=== PATIENT | male | born 1980 | race Caucasian/White ===

== ENCOUNTER 2017-04-08 15:17 | Inpatient (IN) | payer OTHER ==
[~2017-04-08] VITALS: Ht 188 cm; Wt 89.1 kg
[~2017-04-08 15:17] MED LIST: ANASTROZOLE1 MG PO; ARIMIDEX1 MG PO; BACTRIM DS TAB1 EACH PO; DOXEPIN HCL25 MG PO; HYDROXYZINE HCL25 MG PO; NAPROXEN250 MG PO; PREGNYL10000 UNIT SC; SMZ/TMP PO; TESTOSTERO200 MG/1 M IM
[2017-04-08] MEDS ORDERED: MORPHINE SULFATE 2 MG/ML SYR IV STA (15:51)
[2017-04-08] MEDS ORDERED: ONDANSETRON HCL INJ 2 MG/ML VIAL IV STA (15:51)
[2017-04-08] MEDS ORDERED: SODIUM CHLORIDE 0.9% 1000ML 1,000 ML IV SCH (16:00)
[2017-04-08 16:05] LABS: BASOPHILS % 0.1 % (0.0-1.0); HEMATOCRIT 39.8 % (38.2-49.6); HEMOGLOBIN 11.1 g/dL (14.0-18.0); LYMPHOCYTES # (AUTO) 0.4 (1.0-3.2); LYMPHOCYTES % 3.3 % (18.0-39.1); MEAN CORPUSCULAR HGB CONC 27.9 g/dL (31-35); MEAN CORPUSCULAR VOLUME 64.7 fL (81-99); MONOCYTES # (AUTO) 0.4 (0.2-0.8); NEUTROPHILS # (AUTO) 10.9 (2.1-6.9); NEUTROPHILS % 93.3 % (38.7-80.0); PLATELET COUNT 292 x10e3/uL (140-360); RED BLOOD COUNT 6.15 x10e6/uL (4.3-5.7); RED CELL DISTRIBUTION WIDTH 18.9 % (11.7-14.4)
[2017-04-08 16:08] LABS: BILIRUBIN,URINE NEGATIVE (NEGATIVE); COLOR,URINE YELLOW (YELLOW); KETONES,URINE 3+ (NEGATIVE); LEUKOCYTE ESTERASE ,URINE NEGATIVE (NEGATIVE); NITRITE,URINE NEGATIVE (NEGATIVE); URINE UROBILINOGEN 0.2 mg/dL (0.2 - 1)
[2017-04-08 16:09] LABS: PROTEIN,URINE DIPSTICK TRACE (NEGATIVE)
[2017-04-08 16:10] LABS: CLARITY,URINE CLEAR (CLEAR)
[2017-04-08 16:21] LABS: ALANINE AMINOTRANSFERASE 67 IU/L (0-55); ALBUMIN 4.1 g/dL (3.5-5.0); ALBUMIN/GLOBULIN RATIO 1.3 (0.8-2.0); ALKALINE PHOSPHATASE 44 IU/L (40-150); AMYLASE 49 U/L (25-125); ANION GAP 13.1 mmol/L (8-16); BLOOD UREA NITROGEN 21 mg/dL (7-26); BUN/CREATININE RATIO 21 (6-25); CALCIUM 8.6 mg/dL (8.4-10.2); CARBON DIOXIDE 24 mmol/L (22-29); CHLORIDE 104 mmol/L (98-107); CREATININE, SERUM 1.02 mg/dL (0.72-1.25); EST GLOMERULAR FILTRATION RATE > 60 ML/MIN (60-); GLUCOSE 130 mg/dL (74-118); LIPASE 11 U/L (8-78); POTASSIUM 4.1 mmol/L (3.5-5.1); SODIUM 137 mmol/L (136-145)
[2017-04-08 16:28] LABS: BACTERIA,URINE RARE /HPF; RBC,URINE 0-5 /HPF (0-5); WBC,URINE (MAN) 0-5 /HPF (0-5)
[2017-04-08 16:29] LABS: MUCUS,URINE FEW (RARE)
--- NOTE | 2017-04-08 17:28 | Diagnostic Imaging Report ---
PROCEDURE: CT ABDOMEN AND PELVIS WITHOUT CONTRAST TECHNIQUE: The abdomen and pelvis were scanned utilizing a multidetector helical scanner from the diaphragm to the lesser trochanter without IV or oral contrast material. Coronal and sagittal multiplanar reformations were obtained. Recent prior CT at outside facility with iodine contrast administration and Gastrografin performed today. DLP: 788.39 mGy-cm COMPARISON: Patients [facility], CT, CT ABDOMEN/PELVIS WO, 01/23/2012, 0:32. INDICATIONS: MID ABDOMINAL PAIN FINDINGS: ABSENCE OF INTRAVENOUS CONTRAST DECREASES SENSITIVITY FOR DETECTION OF FOCAL LESIONS AND VASCULAR PATHOLOGY. LOWER THORAX: Normal. HEPATOBILIARY: No focal hepatic lesions. No biliary ductal dilatation. SPLEEN: No splenomegaly. PANCREAS: No focal masses or ductal dilatation. ADRENALS: No adrenal nodules. KIDNEYS/URETERS: No hydronephrosis, stones, or solid mass lesions. The previously described punctate renal stones are obscured by the excretion of contrast material. PELVIC ORGANS/BLADDER: Contrast within the renal collecting systems and bladder. PERITONEUM / RETROPERITONEUM: No free air or fluid. LYMPH NODES: No lymphadenopathy. VESSELS: Unremarkable. GI TRACT: Residual contrast within loops of small bowel and stomach. Small bowel loops in the right midabdomen are mildly prominent which may be reflective of an ileus. Remainder small bowel loops showed no contrast or significant dilatation. Postoperative changes related to a ventral hernia. BONES AND SOFT TISSUES: Unremarkable. IMPRESSION: 1. Limited study to evaluate for renal stones due to residual renal excretion and bladder contrast material. 2. Prominent loops of small bowel with contrast present within may represent a focal ileus. Laurent Francois D.O. Dictated by: Laurent Francois D.O. on 04/08/2017 at 17:34 Electronically approved by: Laurent Francois D.O. on 04/08/2017 at 17:34
[2017-04-08] MEDS ORDERED: MORPHINE SULFATE 2 MG/ML SYR ONE (17:50)
[2017-04-08] MEDS ORDERED: HYDROMORPHONE 2MG/ML INJ IV ONE (18:15)
[2017-04-08] MEDS ORDERED: HYDROMORPHONE 1MG/1ML INJ IV PRN (19:15)
[2017-04-08 19:25] LABS: LYMPHOCYTES % (MANUAL) 1 % (19-48); NEUTROPHILS % (MANUAL) 99 % (40-74)
[2017-04-08] MEDS: D5.45%NS/KCL 20MEQ 1,000 ML IV SCH (19:28)
[2017-04-08 19:29] LABS: HYPOCHROMASIA MODERATE; PLATELET ESTIMATE ADEQUATE; PLATELET MORPHOLOGY COMMENT NORMAL; RBC MORPHOLOGY COMMENT ABNORMAL
[2017-04-08 19:30] LABS: ANISOCYTOSIS SLIGHT; OVALOCYTES FEW; POIKILOCYTOSIS MODERATE
[2017-04-08] MEDS: HYDROMORPHONE 2MG/ML INJ IV PRN (21:41)
[2017-04-08 22:40] VITALS: BP 132/75
[2017-04-09] VITALS (7 sets, daily range): BP systolic 92–141; BP diastolic 52–88
[2017-04-09] MEDS: HYDROMORPHONE 2MG/ML INJ IV PRN ×3 (01:53→09:52)
[2017-04-09] MEDS: ONDANSETRON HCL INJ 2 MG/ML VIAL IV PRN ×3 (01:53→17:50)
[2017-04-09] MEDS: SODIUM CHLORIDE 0.9% 1000ML 1,000 ML IV SCH ×2 (02:15→12:29)
[2017-04-09] MEDS: D5.45%NS/KCL 20MEQ 1,000 ML IV SCH (03:36)
[2017-04-09 06:29] LABS: BASOPHILS % 0.1 % (0.0-1.0); HEMATOCRIT 37.3 % (38.2-49.6); HEMOGLOBIN 10.4 g/dL (14.0-18.0); LYMPHOCYTES # (AUTO) 0.8 (1.0-3.2); LYMPHOCYTES % 5.5 % (18.0-39.1); MEAN CORPUSCULAR HEMOGLOBIN 17.9 pg (28-32); MEAN CORPUSCULAR HGB CONC 27.9 g/dL (31-35); MEAN CORPUSCULAR VOLUME 64.2 fL (81-99); MONOCYTES # (AUTO) 1.2 (0.2-0.8); MONOCYTES % 8.1 % (4.4-11.3); NEUTROPHILS # (AUTO) 12.8 (2.1-6.9); PLATELET COUNT 339 x10e3/uL (140-360); RED BLOOD COUNT 5.81 x10e6/uL (4.3-5.7); RED CELL DISTRIBUTION WIDTH 18.6 % (11.7-14.4)
[2017-04-09 06:59] LABS: ANION GAP 10.9 mmol/L (8-16); BLOOD UREA NITROGEN 15 mg/dL (7-26); BUN/CREATININE RATIO 18 (6-25); CALCIUM 8.5 mg/dL (8.4-10.2); CARBON DIOXIDE 27 mmol/L (22-29); CHLORIDE 103 mmol/L (98-107); CREATININE, SERUM 0.83 mg/dL (0.72-1.25); EST GLOMERULAR FILTRATION RATE > 60 ML/MIN (60-); GLUCOSE 135 mg/dL (74-118); POTASSIUM 3.9 mmol/L (3.5-5.1); SODIUM 137 mmol/L (136-145)
[2017-04-09] MEDS: ACETAMINOPHEN 325 MG TAB PO PRN ×2 (09:14→15:58)
[2017-04-09 10:09] LABS: ANISOCYTOSIS MODERATE; HYPOCHROMASIA SLIGHT; PLATELET ESTIMATE ADEQUATE; PLATELET MORPHOLOGY COMMENT NORMAL; POLYCHROMASIA FEW; RBC MORPHOLOGY COMMENT ABNORMAL
[2017-04-09] MEDS ORDERED: HYDROMORPHONE 2MG/ML INJ IV PRN ×2 (10:45→13:00)
--- NOTE | 2017-04-09 11:23 | Diagnostic Imaging Report ---
PROCEDURE:X-RAY ABDOMEN - KUB COMPARISON:Abdominal CT 04/08/2017 INDICATIONS:ILEUS, SMALL BOWEL OBSTRUCTION FINDINGS: Enteric contrast remains in the distended small bowel in the right abdomen. A prominent air-filled loop of small bowel in the mid abdomen is noted. No contrast or bowel gas is seen within the distal colon. Surgical clips in the midabdomen. The lung bases are out of the field of view. Osseous structures are intact. CONCLUSION: Distended small bowel loops with collapsed colon raises concern for small bowel obstruction and can be followed with serial KUB. Dictated by: Romario Fernandes M.D. on 04/09/2017 at 11:30 Electronically approved by: Romario Fernandes M.D. on 04/09/2017 at 11:30
--- NOTE | 2017-04-09 11:52 | History and Physical ---
REASON FOR ADMISSION: Abdominal pain times 1 today with nausea, vomiting and diarrhea. HPI: This is a 37-year-old male who presents with the above complaint. The patient states that around 3 in the morning while sleeping the patient was awoken with sudden right-sided severe abdominal pain. The patient states that it was intractable in nature and was there all the time. The patient has had associated nausea and vomiting with multiple episodes of watery diarrhea that he said started off brown and then turned to a de jesus color. The patient said he has had subjective fever associated with this as well. REVIEW OF SYSTEMS: A 14-point review of systems was reviewed and negative except as previously stated in the patient's HPI. PAST MEDICAL HISTORY: Positive for ventral hernia times 2 with abdominal repairs, history of morbid obesity. PAST SURGICAL HISTORY 1. Status post 2 ventral hernia repairs. 2. Gastric bypass. 3. Lap-Band. 4. Right rotator cuff surgery. PSYCH HISTORY: Reviewed and negative. SOCIAL HISTORY: Denies any tobacco, alcohol or illicit drug use. FAMILY HISTORY: Reviewed and negative. ALLERGIES: NO KNOWN DRUG ALLERGIES. HOME MEDICATIONS: Please see the patient's reconciled home medication list. PHYSICAL EXAMINATION VITALS: The patient's blood pressure is 125/75. Temperature is 99.0. The patient's T-max is 99.4. Pulse 72. Respirations 18. O2 sat is 97%. GENERAL: This is a man lying in bed. He is in no acute distress. HEENT: Pupils are equal, round and reactive to light and accommodation. The extraocular muscles are intact. Anicteric sclerae. NECK: Trachea is midline. No thyromegaly. No JVD. CARDIOVASCULAR: Normal S1 and S2. No clicks, gallops, rubs appreciated. RESPIRATORY: Exam is clear to auscultation bilaterally. No wheezing, rhonchi or rales appreciated. ABDOMEN: The patient has a noted 4-cm soft hernia that is reducible and nontender just lateral to his exploratory laparotomy midline scar. The patient has hypoactive bowel sounds and some mild diffuse tenderness throughout the abdomen. No evidence of acute abdomen. The abdomen is not warm or angry per my assessment. EXTREMITIES: 2+ pulses in the upper and lower extremities bilaterally. LYMPHATIC: No lymphadenopathy appreciated. NEURO: GCS is 15/15. PSYCH: A and O times 3 with no suicidal ideation. LABS: WBC count was 11.7 on presentation, currently 14.8. Hemoglobin is 10.4, hematocrit 37.3, platelet count 339. As per the patient's chemistries, the patient's sodium is 137, potassium 3.9, chloride 103, bicarb 27, BUN 15, creatinine 0.83. The patient's glucose is 135. LFTs are otherwise unremarkable, except for slight elevation in his AST to 45 and ALT to 67. The patient's urinalysis showed trace protein, 3+ ketones, and a few mucus. IMAGING: Abdominal and pelvic CT done without contrast indicated prominent loops of small bowel with contrast present within, may represent a focal ileus. ASSESSMENT 1. Abdominal pain, likely secondary to ileus. 2. Nausea, vomiting and diarrhea, rule out infectious etiology. 3. Leukocytosis. Rule out infectious etiology. PLAN: This 37-year-old male presents with abdominal pain, with imaging studies reflecting this is a probable ileus. Will do a KUB to evaluate, given the patient did not have contrast on the CT to see the extent of the ileus. The patient said he is hungry, so we will put him on a clear liquid diet at this time. We will go back to n.p.o. if the patient cannot tolerate it. Will give p.r.n. pain medicine with Dilaudid 1 mg IV q.3 h. p.r.n. for nausea and vomiting. For the patient's leukocytosis, he will be on Zosyn and Flagyl. Will get a stool evaluation with C. diff and stool cultures ordered. The patient will have a CBC and CMP done every morning to evaluate his current trends. Will put him on DVT prophylaxis with heparin. The patient will be on GI prophylaxis with famotidine. DISPOSITION: Patient will be admitted to inpatient. He will be here greater than 2 midnights stay. Job#: [id number]
[2017-04-09] MEDS: SODIUM CHLORIDE FLUSH 10 ML SYR INJ PRN ×2 (12:29→16:30)
[2017-04-09] MEDS: PIPER-TAZ 3.375 GM 50 ML IV SCH ×3 (12:30→23:54)
[2017-04-09] MEDS: HYDROMORPHONE 1MG/1ML INJ IV PRN ×4 (13:22→23:11)
[2017-04-09] MEDS: METRONIDAZOLE 500MG/NS 100ML 100 ML IV SCH ×2 (13:24→22:01)
[2017-04-09] MEDS: FAMOTIDINE 20 MG TAB PO SCH (15:58)
[2017-04-09] MEDS ORDERED: ASPIRIN 81 MG CHEW TAB PO ONE (16:00)
[2017-04-09] MEDS: HEPARIN SOD (PORCINE) 5,000 UNIT/ML VIAL SC SCH (21:15)
[2017-04-09] MEDS: PANTOPRAZOLE SOD 40 MG TABEC PO SCH (21:15)
[2017-04-10] VITALS (76 sets, daily range): BP systolic 62–178; BP diastolic 43–138
[2017-04-10] MEDS: SODIUM CHLORIDE 0.9% 1000ML 1,000 ML IV SCH ×5 (02:15→23:00)
[2017-04-10] MEDS: HYDROMORPHONE 1MG/1ML INJ IV PRN ×2 (02:15→05:20)
[2017-04-10] MEDS: METRONIDAZOLE 500MG/NS 100ML 100 ML IV SCH ×3 (05:42→22:45)
--- NOTE | 2017-04-10 06:28 | Diagnostic Imaging Report ---
EXAM: CHEST SINGLE (PORTABLE), AP 1 view DATE: 04/10/2017 5:06 AM Time stamp on exam: 0523 hours INDICATION: Shortness of breath, pain when breathing COMPARISON: None FINDINGS: LINES/TUBES: None LUNGS: No consolidations or edema. PLEURA: No effusions or pneumothorax. HEART AND MEDIASTINUM: Normal size and contour. BONES AND SOFT TISSUES: Large volume of pneumoperitoneum seen underneath the hemidiaphragms. IMPRESSION: Large volume of pneumoperitoneum seen underneath the hemidiaphragms consistent with bowel perforation. Findings discussed with Ivonne, the house officer 04/10/2017 at 0620 hrs. Signed by: Dr. Autumn Garcia M.D. on 04/10/2017 6:25 AM
[2017-04-10] MEDS ORDERED: DEXTROSE 50% SYRINGE 50 ML IV ONE ×5 (06:57→19:45)
[2017-04-10] MEDS ORDERED: DEXTROSE 5%/0.45% SOD CHL 1,000 ML IV ONE (06:57)
[2017-04-10] MEDS ORDERED: SODIUM CHLORIDE 0.9% 1000ML 1,000 ML ONE (07:06)
[2017-04-10] MEDS ORDERED: ACETAMINOPHEN 1000 MG/100 ML 100 ML IV ONE ×2 (07:07→20:15)
[2017-04-10] MEDS ORDERED: ACETAMINOPHEN 1000 MG/100 ML IV STA (07:11)
[2017-04-10] MEDS ORDERED: DEXTROSE 50% SYRINGE 50 ML IV STA (07:11)
[2017-04-10 07:15] LABS: BASOPHILS # (AUTO) 0.1 (0.0-0.1); BASOPHILS % 0.7 % (0.0-1.0); EOSINOPHILS % 0.1 % (0.0-6.0); HEMOGLOBIN 13.9 g/dL (14.0-18.0); LYMPHOCYTES # (AUTO) 0.8 (1.0-3.2); LYMPHOCYTES % 6.3 % (18.0-39.1); MEAN CORPUSCULAR HGB CONC 26.2 g/dL (31-35); MEAN CORPUSCULAR VOLUME 68.6 fL (81-99); MONOCYTES # (AUTO) 0.4 (0.2-0.8); NEUTROPHILS # (AUTO) 10.7 (2.1-6.9); NEUTROPHILS % 89.6 % (38.7-80.0); PLATELET COUNT 392 x10e3/uL (140-360); RED CELL DISTRIBUTION WIDTH 20.3 % (11.7-14.4)
[2017-04-10] MEDS ORDERED: SODIUM CHLORIDE 0.9% 1000ML 1,000 ML IV ONE (07:15)
[2017-04-10] MEDS ORDERED: DEXTROSE 5%/0.45% SOD CHL 1,000 ML IV SCH (07:15)
[2017-04-10 07:19] LABS: RED BLOOD COUNT 7.73 x10e6/uL (4.3-5.7)
[2017-04-10] MEDS: FAMOTIDINE 20 MG TAB PO SCH ×2 (07:30→16:30)
[2017-04-10] MEDS: PIPER-TAZ 3.375 GM 50 ML IV SCH ×3 (07:33→19:52)
[2017-04-10 07:42] LABS: ALBUMIN 3.2 g/dL (3.5-5.0); ALBUMIN/GLOBULIN RATIO 0.9 (0.8-2.0); ANION GAP 28.4 mmol/L (8-16); CALCIUM 9.3 mg/dL (8.4-10.2); CREATININE, SERUM 4.14 mg/dL (0.72-1.25); POTASSIUM 5.4 mmol/L (3.5-5.1)
[2017-04-10] MEDS ORDERED: SODIUM CHLORIDE 0.9% 1000ML 1,000 ML IV SCH ×7 (08:00→16:15)
--- NOTE | 2017-04-10 08:02 | Consultation ---
DATE OF CONSULTATION: April 10, 2017 CHIEF COMPLAINT: Abdominal pain and sepsis. HISTORY OF PRESENT ILLNESS: The patient is a 37-year-old male admitted for recent onset of abdominal pain, vomiting and diarrhea. The patient's condition worsened with tachycardiac and hypertension with obtundation. PAST MEDICAL HISTORY: Significant for morbid obesity for which he underwent gastric bypass years ago. SURGICAL HISTORY: Included recent incisional hernia repair times 2. ALLERGIES: HE HAS NO DRUG ALLERGIES. SOCIAL: The patient is a nonsmoker and no alcohol abuse. REVIEW OF SYSTEMS: Abdominal pain, short of breath and lethargy. PHYSICAL EXAMINATION VITAL SIGNS: His blood pressure is 100/50, pulse 130, temperature 100. GENERAL: The patient is arousable but lethargic. HEENT: Sclerae are nonicteric. NECK: Supple. LUNGS: Clear. HEART: Regular rate and rhythm. No murmurs. ABDOMEN: Distended with guarding and tenderness in the upper abdomen with rebound. EXTREMITIES: Without cyanosis or edema. Last white cell count was 11.9, hemoglobin of 13. Lactic acid 110. Creatinine was 0.8. Chest x-ray showed large amount of pneumoperitoneum. ASSESSMENT: Perforated viscus. PLAN: Exploratory laparotomy and repair of perforated viscus. Attendant risks discussed with the family. Job#: [id number] MARTIN
[2017-04-10 08:56] LABS: ABG PCO2 26 mmHg (41-51); ABG PH 7.15 (7.31-7.41); ABG PO2 131 mmHg (80-105)
[2017-04-10 08:57] LABS: ABG HCO3 9 mmol/L (23-28)
[2017-04-10] MEDS: NOREPINEPHRINE BITARTRATE/ NS 250 ML IV PRN ×2 (09:00→23:52)
[2017-04-10] MEDS: PANTOPRAZOLE SOD 40 MG TABEC PO SCH (09:00)
[2017-04-10] MEDS ORDERED: NOREPINEPHRINE BITARTRATE/ NS 250 ML IV STA (09:00)
[2017-04-10] MEDS: HEPARIN SOD (PORCINE) 5,000 UNIT/ML VIAL SC SCH ×2 (09:00→22:35)
[2017-04-10] MEDS ORDERED: NOREPINEPHRINE BITARTRATE/ NS 250 ML ONE (09:02)
[2017-04-10 10:33] LABS: ABG HCO3 17 mmol/L (23-28); ABG PCO2 69 mmHg (41-51); ABG PH 6.99 (7.31-7.41); ABG PO2 120 mmHg (80-105)
[2017-04-10 10:33] LABS: BASOPHILS # (AUTO) 0.1 (0.0-0.1); BASOPHILS % 0.3 % (0.0-1.0); HEMATOCRIT 42.8 % (38.2-49.6); HEMOGLOBIN 11.4 g/dL (14.0-18.0); LYMPHOCYTES # (AUTO) 1.6 (1.0-3.2); LYMPHOCYTES % 8.9 % (18.0-39.1); MEAN CORPUSCULAR HGB CONC 26.6 g/dL (31-35); MEAN CORPUSCULAR VOLUME 67.5 fL (81-99); MONOCYTES # (AUTO) 2.2 (0.2-0.8); NEUTROPHILS # (AUTO) 14.3 (2.1-6.9); NEUTROPHILS % 78.3 % (38.7-80.0); PLATELET COUNT 366 x10e3/uL (140-360); RED BLOOD COUNT 6.34 x10e6/uL (4.3-5.7); RED CELL DISTRIBUTION WIDTH 19.1 % (11.7-14.4)
[2017-04-10 10:44] LABS: INR 2.58; PROTHROMBIN TIME 29.1 seconds (11.9-14.5)
[2017-04-10 10:45] LABS: PARTIAL THROMBOPLASTIN TIME 44.7 seconds (23.8-35.5)
[2017-04-10 10:53] LABS: ANION GAP 17.4 mmol/L (8-16); CALCIUM 7.4 mg/dL (8.4-10.2); CREATININE, SERUM 3.63 mg/dL (0.72-1.25); POTASSIUM 4.4 mmol/L (3.5-5.1)
[2017-04-10 11:24] LABS: HYPOCHROMASIA MODERATE; POLYCHROMASIA FEW; RBC MORPHOLOGY COMMENT ABNORMAL
[2017-04-10 11:25] LABS: ANISOCYTOSIS MODE; PLATELET ESTIMATE ADEQUATE; PLATELET MORPHOLOGY COMMENT FEW GIANT; POIKILOCYTOSIS SLIGHT
[2017-04-10 11:26] LABS: SCHISTOCYTES RARE
[2017-04-10] MEDS ORDERED: ONDANSETRON HCL INJ 2 MG/ML VIAL IV PRN (11:30)
[2017-04-10] MEDS ORDERED: HYDROMORPHONE 1MG/1ML INJ IV PRN (11:30)
[2017-04-10] MEDS ORDERED: PROPOFOL IV EMULSION 10MG/ML 100 ML ONE (12:06)
[2017-04-10] MEDS: PROPOFOL IV EMULSION 10MG/ML 100 ML IV SCH ×2 (12:45→19:54)
[2017-04-10] MEDS: SODIUM CHLORIDE 0.9% 250ML IRRIG IR SCH ×4 (13:32→23:05)
[2017-04-10] MEDS ORDERED: HEPARIN SOD/SOD CHLORIDE 1,000 ML ONE (13:50)
[2017-04-10 14:07] LABS: BASOPHILS % 0.3 % (0.0-1.0); HEMATOCRIT 46.2 % (38.2-49.6); HEMOGLOBIN 12.7 g/dL (14.0-18.0); LYMPHOCYTES # (AUTO) 0.5 (1.0-3.2); LYMPHOCYTES % 5.2 % (18.0-39.1); MEAN CORPUSCULAR HEMOGLOBIN 18.6 pg (28-32); MEAN CORPUSCULAR HGB CONC 27.5 g/dL (31-35); MEAN CORPUSCULAR VOLUME 67.8 fL (81-99); MONOCYTES # (AUTO) 0.7 (0.2-0.8); MONOCYTES % 7.3 % (4.4-11.3); NEUTROPHILS # (AUTO) 8.8 (2.1-6.9); NEUTROPHILS % 86.6 % (38.7-80.0); PLATELET COUNT 340 x10e3/uL (140-360); RED BLOOD COUNT 6.81 x10e6/uL (4.3-5.7); RED CELL DISTRIBUTION WIDTH 20.1 % (11.7-14.4)
[2017-04-10 14:20] LABS: ANION GAP 13.9 mmol/L (8-16); CREATININE, SERUM 3.43 mg/dL (0.72-1.25); POTASSIUM 4.9 mmol/L (3.5-5.1)
[2017-04-10 14:38] LABS: CALCIUM 6.8 mg/dL (8.4-10.2)
[2017-04-10] MEDS: FENTANYL CITRATE INJ 2,000 MCG in SODIUM CHLORIDE 0.9% 250ML 210 ML IV SCH (15:00)
[2017-04-10] MEDS ORDERED: SODIUM BICARBONATE 8.4% INJ 50 ML SYR IV STA (15:07)
[2017-04-10 15:25] LABS: ANISOCYTOSIS MODERATE; BAND NEUTROPHILS % (MANUAL) 12 %; HYPOCHROMASIA SLIGHT; LYMPHOCYTES % (MANUAL) 14 % (19-48); METAMYELOCYTES % (MANUAL) 2 % (0-0); MONOCYTES % (MANUAL) 11 % (3.4-9.0); MYELOCYTES % (MANUAL) 1 % (0-0); NEUTROPHILS % (MANUAL) 60 % (40-74); POLYCHROMASIA FEW
[2017-04-10 15:26] LABS: SCHISTOCYTES MODERATE
[2017-04-10 15:27] LABS: PLATELET ESTIMATE ADEQUATE; PLATELET MORPHOLOGY COMMENT FEW LARGE; RBC MORPHOLOGY COMMENT ABNORMAL
--- NOTE | 2017-04-10 15:29 | Consultation ---
DATE OF CONSULTATION: April 10, 2017 SURGICAL CONSULTATION REFERRING PHYSICIAN: Dr. Suarez. HISTORY OF PRESENT ILLNESS: Patient is a 37-year-old male who was admitted to the hospital 2 days ago with complaints of abdominal pain, nausea and vomiting and diarrhea. He has had previous bariatric surgery, a duodenal switch, and also previous hernia repair. CT of the abdomen was done and revealed findings of an ileus but no other significant findings. However, he developed signs of worsening sepsis with hypotension last evening, and a chest x-ray revealed free intraperitoneal air. PAST MEDICAL HISTORY: As stated above. Previous ventral hernia repair. Previous bariatric surgeries. Recent right rotator cuff surgery. ALLERGIES: HE HAS NO ALLERGIES. MEDICATIONS: Listed in the chart. FAMILY HISTORY: Noncontributory. SOCIAL HISTORY: The patient does not smoke cigarettes or drink alcohol. REVIEW OF SYSTEMS: Limited but negative except for as stated above. PHYSICAL EXAMINATION: GENERAL: The patient is awake and alert. VITALS: At the time of seeing him, the heart rate is 130, the blood pressure is 75/50. HEENT: Revealed no scleral icterus. NECK: Had no masses. LUNGS: Equal breath sounds are clear. CARDIAC: Tachycardic with no murmur. ABDOMEN: Moderately distended with diffuse tenderness with questionable signs of peritonitis. EXTREMITIES: Are cool, and pulses are not palpable. ASSESSMENT: This is a 37-year-old male with perforated hollow viscus with free intraperitoneal air on chest x-ray with septic shock. Will need to go to surgery as soon as possible to treat the underlying problem. The surgery was explained to the patient and his family. They are aware of the serious, critical nature of his condition. Thank you for asking me to see Mr. Mai. Job#: [id number] EV
[2017-04-10] MEDS ORDERED: CALCIUM GLUCONATE 10% INJ 9.3 MEQ in SODIUM CHLORIDE 0.9% 100 ML 100 ML IV ONE ×2 (15:30→19:45)
[2017-04-10 15:38] LABS: ABG HCO3 16 mmol/L (23-28); ABG PCO2 49 mmHg (41-51); ABG PH 7.12 (7.31-7.41); ABG PO2 92 mmHg (80-105)
--- NOTE | 2017-04-10 15:45 | Operative Report ---
DATE OF PROCEDURE: April 10, 2017 PREOPERATIVE DIAGNOSES: Perforated hollow viscus and septic shock. 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 PROCEDURES 1. Exploratory laparotomy. 2. Small bowel resection. 3. Take down of gastric jejunostomy. 4. Creation of Billroth II gastrojejunostomy. PRE SCHOOL TEACHER: None. ANESTHESIA: General endotracheal anesthesia. INDICATIONS AND FINDINGS: Patient is a 37-year-old male with previous duodenal switch procedure who presented to the hospital with complaints of abdominal pain with shortness of breath. He developed worsening symptoms on the evening prior to surgery. Chest x-ray revealed free intraperitoneal air. On surgery there was a large amount of murky brownish fluid with a foul smell within the entire peritoneal cavity. It was found to be an internal hernia with volvulus of the small bowel Sacha-Y limb from previous bariatric surgery with gangrene of that entire Sacha-Y limb necessitating removal of the entire limb. The proximal bowel was noted to be viable and this was left in place and the terminal ileum was noted to be viable. The gangrene extended all the way to the previous gastrojejunostomy. Duodenal stump was intact. Liver appeared normal. There was no definite hernia seen on the inside of the abdomen. There was mesh in place from previous surgery. TECHNIQUE: After adequate general endotracheal anesthesia with patient in the supine position, the abdomen were prepped and draped in sterile fashion with Tristen solution. Through the previous midline wound incision made and the peritoneal cavity was entered. There was mesh in the abdominal wall from previous surgery. There were no significant adhesions to the abdominal wall. There was a large amount of murky brownish fluid within the peritoneal cavity with a foul odor. This fluid was all evacuated. There was obvious gangrene in a segment of small bowel and there was found to be an internal hernia with volvulus of the small bowel. The fibrous band causing the hernia was divided. Small bowel was divided where it was gangrenous so that the volvulus could be reduced and the entire infarcted small bowel was examined and was found to extend all way from the gastrojejunostomy to the jejunojejunostomy. Terminal ileum appeared viable. The proximal small bowel was massively dilated, but it did appear viable. The previous gastrojejunostomy was taken down. This was identified, dissected free at the gastrojejunostomy. The bowel was divided with the NOAH stapler. Mesentery to the Sacha-Y limb of the bowel was divided with a LigaSure device all the way down to the jejunojejunostomy from previous surgery and this bowel also was divided with NOAH stapler and the infarcted bowel was removed. The proximal bowel examined, although it was very dilated, all appeared viable. The terminal ileum also appeared viable. There was about 10 cm of terminal ileum which remained. Colon was collapsed and appeared viable. The peritoneal cavity was irrigated with a large volume of warm saline until the aspirate was clear. A Billroth II gastrojejunostomy was done anastomosing the end of the stomach to the side of the small bowel approximately 25 cm distal to the ligament of Treitz. While the bowel was open, the proximal bowel was decompressed. Anastomosis was made with a NOAH stapler and TL-60 stapler. Anastomosis was made between the distal small bowel using a NOAH stapler and TL-60 stapler. Mesenteric defect was closed with 2-0 Vicryl. The peritoneal cavity was irrigated once again with warm saline until the aspirate was clear. The duodenal stump from the previous surgery was examined and this was noted to be intact. Liver was normal. The mesh was in place although exposed to contaminated peritoneal fluid was not grossly infected. The peritoneal cavity was irrigated further with large volume of warm saline. The midline wound was then closed with running suture of number 1 PDS. Patient was planned for reexploration in the operating room for a second look in 48 hours. Patient tolerated procedure well. Estimated blood loss was 100 mL. There were no complications. All counts were correct. Patient was taken to the ICU in critical condition. Job#: [id number] GH cc:RADHA HOFFMAN MD
--- NOTE | 2017-04-10 16:01 | Diagnostic Imaging Report ---
PROCEDURE: A single AP view of the chest. COMPARISON: Patients [facility], DX, ABDOMEN-1VIEW (KUB), 04/09/2017, 10:49. Patients [facility], DX, CHEST SINGLE (PORTABLE), 04/10/2017, 5:23. INDICATIONS: EET, CENTRAL LINE PLACEMENT FINDINGS: Lines/tubes: Interval placement of right-sided IJ central line, with distal tip projecting in the mid SVC. Endotracheal tube has distal tip projecting 5.2 cm above the miguelina. Enteric tube in place, with distal portion below the hemidiaphragm. The tip is not visualized. Lungs: Lungs are mildly hypoinflated. Bibasilar atelectasis. Pleura: There is no pleural effusion or pneumothorax. Heart and mediastinum: The heart and the mediastinum are unremarkable. Bones and soft tissues: No acute bony abnormality. Interval decrease in previously visualized pneumoperitoneum IMPRESSION: 1. right-sided IJ central line has distal tip projecting in the mid SVC. Endotracheal tube projects 5.2 cm above the miguelina. 2. Hypoinflated lungs, with bibasilar atelectasis. 3. Interval decrease in previously visualized pneumoperitoneum Brad Pizano M.D. Dictated by: Brad Pizano M.D. on 04/10/2017 at 16:08 Electronically approved by: Brad Pizano M.D. on 04/10/2017 at 16:08
[2017-04-10] MEDS ORDERED: DEXTROSE 10% 1,000 ML IV ONE (17:15)
[2017-04-10] MEDS ORDERED: SODIUM BICARBONATE 8.4% INJ 50 ML SYR IV ONE ×3 (17:30→19:45)
--- NOTE | 2017-04-10 17:52 | Diagnostic Imaging Report ---
PROCEDURE: A single AP view of the chest. COMPARISON: Patients [facility], , CHEST SINGLE (PORTABLE), 04/10/2017, 13:05. INDICATIONS: ETT PLACEMENT FINDINGS: See impression. IMPRESSION: 1. endotracheal tube has distal tip projecting approximately 4.1 cm above the miguelina. Other support lines and tubes are unchanged. 2. No other significant change since prior portable AP film performed at 04/10/2017 at 1305 Brad Pizano M.D. Dictated by: Brad Pizano M.D. on 04/10/2017 at 17:59 Electronically approved by: Brad Pizano M.D. on 04/10/2017 at 17:59
[2017-04-10] MEDS: VASOPRESSIN 100 UNIT in DEXTROSE 5% 100ML 100 ML IV SCH (18:00)
[2017-04-10 18:09] LABS: ABG HCO3 20 mmol/L (23-28); ABG PCO2 43 mmHg (41-51); ABG PH 7.28 (7.31-7.41); ABG PO2 109 mmHg (80-105)
[2017-04-10 18:38] LABS: BASOPHILS % 0.4 % (0.0-1.0); HEMATOCRIT 45.1 % (38.2-49.6); HEMOGLOBIN 12.7 g/dL (14.0-18.0); LYMPHOCYTES # (AUTO) 0.5 (1.0-3.2); LYMPHOCYTES % 5.6 % (18.0-39.1); MEAN CORPUSCULAR HEMOGLOBIN 18.7 pg (28-32); MEAN CORPUSCULAR HGB CONC 28.2 g/dL (31-35); MEAN CORPUSCULAR VOLUME 66.3 fL (81-99); MONOCYTES # (AUTO) 0.8 (0.2-0.8); MONOCYTES % 8.5 % (4.4-11.3); NEUTROPHILS # (AUTO) 7.6 (2.1-6.9); NEUTROPHILS % 85.1 % (38.7-80.0); PLATELET COUNT 295 x10e3/uL (140-360)
[2017-04-10] MEDS: DEXTROSE 20% 500 ML IV SCH (18:39)
[2017-04-10 18:46] LABS: INR 2.87; PROTHROMBIN TIME 31.6 seconds (11.9-14.5)
[2017-04-10 18:47] LABS: PARTIAL THROMBOPLASTIN TIME 43.8 seconds (23.8-35.5)
[2017-04-10 18:56] LABS: ALBUMIN/GLOBULIN RATIO 0.9 (0.8-2.0); ANION GAP 17.9 mmol/L (8-16); CREATININE, SERUM 3.86 mg/dL (0.72-1.25); PHOSPHORUS 5.4 MG/DL (2.3-4.7); POTASSIUM 5.9 mmol/L (3.5-5.1)
[2017-04-10 19:01] LABS: CALCIUM 6.3 mg/dL (8.4-10.2); MAGNESIUM 0.9 MG/DL (1.3-2.1)
[2017-04-10] MEDS ORDERED: ETOMIDATE 2 MG/ML 10 ML INJ IV ONE (19:16)
[2017-04-10] MEDS ORDERED: ROCURONIUM BROMIDE 10 MG/ML 5ML VIAL ONE (19:16)
[2017-04-10] MEDS ORDERED: PHENYLEPHRINE HCL 1% 10 MG/ML VIAL ONE (19:16)
[2017-04-10] MEDS ORDERED: FENTANYL CITRATE/PF 100MCG/2 ML INJ ONE (19:16)
[2017-04-10] MEDS ORDERED: LIDOCAINE HCL 2% LOCAL INJ 5 ML SDV VIAL INJ ONE (19:16)
[2017-04-10] MEDS ORDERED: SUCCINYLCHOLINE 200 MG/10 ML SYR ONE (19:16)
[2017-04-10] MEDS ORDERED: MAGNESIUM SULFATE 2GM/50ML 50 ML IV ONE (19:30)
[2017-04-10] MEDS ORDERED: INSULIN REGULAR, HUMAN 100 UNIT/1 ML 3ML VIAL IV ONE (19:30)
[2017-04-10] MEDS: MIDAZOLAM HCL 25 MG in SODIUM CHLORIDE 0.9% 50ML 45 ML IV PRN ×2 (20:18→22:00)
[2017-04-10] MEDS ORDERED: ACETAMINOPHEN 1000 MG/100 ML IV PRN (20:30)
[2017-04-10 23:17] LABS: ABG HCO3 16 mmol/L (23-28); ABG PCO2 39 mmHg (41-51); ABG PH 7.21 (7.31-7.41); ABG PO2 231 mmHg (80-105)
--- NOTE | 2017-04-10 23:22 | Consultation ---
DATE OF CONSULTATION: April 10, 2017 PULMONARY MEDICINE CONSULTATION REASON FOR REFERRAL: Acute respiratory failure. Mr. Mai is a pleasant, 37-year-old gentleman with acute respiratory failure. The patient presented with some abdominal pain and nausea. The patient went to urgent care center. CT showed possible early ileus. The patient was admitted to the hospital with worsening hypertension and chest x-ray showed free intraperitoneal air. The patient went to the OR suite emergently. The patient had perforated hallow viscus and septic shock. LFTs were increasing. Kidney enzymes were increasing. The patient went to the OR. Exploratory laparotomy was done with small bowel resection along with gastrojejunostomy take down and a new Billroth II gastrojejunostomy creation. The patient was found to have bad ischemic bowel and blood and fecal soiling of peritoneum. The patient brought to ICU. There was difficulty in glucose control. There was low urine output. There is acidosis 6.9 pH initially. There is shock with Levophed 10 and then 20 mcg with dopamine 10 mcg/kg per minute. The patient was given multiple interventions over the day with resuscitation. PAST MEDICAL HISTORY: Ventral hernia x2 repair, morbid obesity, gastric bypass, lap band surgery, right rotator cuff surgery. PHYSICAL EXAMINATION VITAL SIGNS: The patient is vital signs totally unstable, reviewed per record. GENERAL: Some agonal breathing. He is sedated more on the ventilator now on increasing medications. LUNGS: Bilateral air entry. ABDOMEN: With midline surgical incision site and bandage in place. LABORATORY DATA: Labs reviewed per electronic record. Multiple critical findings including LFTs that are rising, creatinine that is rising, low glucose often in the 30s and 60s even after multiple repetitive D50 pushes and D5 drip. IMPRESSION 1. Acute respiratory failure. 2. Shock, septic. 3. Acute renal failure. 4. Acute liver failure, probably worsening. 5. Refractory hypoglycemia. 6. Peritonitis, severe. 7. Postoperative state, status post surgery as above. PLAN: Continue current treatment. The patient in critical state right now. The patient with a significant chance of dying. We may run into oxygenation problems as on 100% FIO2 the PAO2 was 108. The pH has been improved to 7.28. Multiple interventions will be continued. Greater than 30 minutes of direct care today. Multiple evaluations and intervention. Will follow along closely. Thank you very much, Dr. Suarez, Dr. Latham and Dr. Marx, for this consult. Job#: [id number] GH
[2017-04-11] VITALS (128 sets, daily range): BP systolic 65–144; BP diastolic -16–93
[2017-04-11] MEDS: PIPER-TAZ 3.375 GM 50 ML IV SCH
[2017-04-11] MEDS: DEXTROSE 20% 500 ML IV SCH ×2 (00:30→14:00)
[2017-04-11] MEDS: SODIUM CHLORIDE 0.9% 1000ML 1,000 ML IV SCH (01:00)
[2017-04-11] MEDS: MIDAZOLAM HCL 25 MG in SODIUM CHLORIDE 0.9% 50ML 45 ML IV PRN ×3 (02:00)
[2017-04-11] MEDS ORDERED: DEXTROSE 5%/0.45% SOD CHL 1,000 ML IV ONE (02:01)
[2017-04-11 05:28] LABS: BASOPHILS # (AUTO) 0.1 (0.0-0.1); BASOPHILS % 0.5 % (0.0-1.0); EOSINOPHILS % 0.2 % (0.0-6.0); HEMATOCRIT 39.5 % (38.2-49.6); HEMOGLOBIN 11.2 g/dL (14.0-18.0); LYMPHOCYTES # (AUTO) 0.8 (1.0-3.2); MEAN CORPUSCULAR HEMOGLOBIN 18.6 pg (28-32); MEAN CORPUSCULAR HGB CONC 28.4 g/dL (31-35); MEAN CORPUSCULAR VOLUME 65.5 fL (81-99); MONOCYTES # (AUTO) 0.6 (0.2-0.8); MONOCYTES % 4.8 % (4.4-11.3); NEUTROPHILS # (AUTO) 11.6 (2.1-6.9); NEUTROPHILS % 87.1 % (38.7-80.0); PLATELET COUNT 204 x10e3/uL (140-360); RED BLOOD COUNT 6.03 x10e6/uL (4.3-5.7); RED CELL DISTRIBUTION WIDTH 19.3 % (11.7-14.4)
[2017-04-11 05:33] LABS: INR 3.09; PROTHROMBIN TIME 33.5 seconds (11.9-14.5)
[2017-04-11] MEDS ORDERED: DEXTROSE 10% 1,000 ML IV ONE (05:33)
[2017-04-11 05:34] LABS: PARTIAL THROMBOPLASTIN TIME 47.5 seconds (23.8-35.5)
[2017-04-11 05:43] LABS: ALBUMIN 1.7 g/dL (3.5-5.0); ALBUMIN/GLOBULIN RATIO 0.9 (0.8-2.0); ANION GAP 13.3 mmol/L (8-16); CREATININE, SERUM 4.91 mg/dL (0.72-1.25); MAGNESIUM 1.4 MG/DL (1.3-2.1); PHOSPHORUS 5.2 MG/DL (2.3-4.7); POTASSIUM 5.3 mmol/L (3.5-5.1)
[2017-04-11 05:46] LABS: CALCIUM 6.1 mg/dL (8.4-10.2)
[2017-04-11 05:48] LABS: ABG HCO3 16 mmol/L (23-28); ABG PCO2 41 mmHg (41-51); ABG PO2 194 mmHg (80-105)
--- NOTE | 2017-04-11 06:39 | Diagnostic Imaging Report ---
EXAM: CHEST SINGLE (PORTABLE), AP 1 view DATE: 04/11/2017 4:00 AM Time stamp on exam: 0555 hours INDICATION: Free air in abdomen COMPARISON: AP view of the chest April 10, 2017 FINDINGS: LINES/TUBES: Stable positions of right central line, endotracheal tube and nasal/orogastric tube. LUNGS: Bibasilar atelectasis. PLEURA: Possible small effusion on the right. HEART AND MEDIASTINUM: Normal size and contour. BONES AND SOFT TISSUES: No acute findings. IMPRESSION: Bibasilar atelectasis. Stable support lines and tubes. Pneumoperitoneum not seen on this exam. Signed by: Dr. Autumn Garcia M.D. on 04/11/2017 6:36 AM
[2017-04-11] MEDS: SODIUM CHLORIDE 0.9% 250ML IRRIG IR SCH ×6 (07:30→22:55)
--- NOTE | 2017-04-11 08:59 | Operative Report ---
DATE OF PROCEDURE: April 11, 2017 PREOPERATIVE DIAGNOSIS: Acute renal failure. POSTOPERATIVE DIAGNOSIS: Acute renal failure. OPERATIVE PROCEDURES: Placement of a right femoral temporary dialysis catheter. FLAME HARDENING MACHINE SETTER: None. ANESTHESIA: Local. INDICATIONS AND FINDINGS: Patient is a 37-year-old male suffering from sepsis due to perforated gangrenous small bowel who has developed acute renal failure. It is anticipated he will need hemodialysis. At the time of the procedure there were no abnormalities at that area of the catheter placement. Blood aspirated freely from each lumen of the catheter once it was in place. TECHNIQUE: At the patient's bedside in the supine position, the right groin was prepped and draped in sterile fashion with ChloraPrep with Chlorhexidine solution. Skin and subcutaneous tissue were infiltrated with 1% lidocaine. The right femoral vein was aspirated and J-wire introduced passed easily without resistance. Using Seldinger technique the double lumen dialysis catheter was placed without difficulty. Blood aspirated freely from each lumen which was then flushed with saline and the catheter was sutured in place using 2-0 nylon. Sterile dressing was applied. Patient tolerated the procedure well. Estimated blood loss was 25 mL. There were no complications. Job#: [id number]
[2017-04-11] MEDS: HEPARIN SOD (PORCINE) 5,000 UNIT/ML VIAL SC SCH ×2 (09:00→21:55)
[2017-04-11] MEDS ORDERED: NOREPINEPHRINE IV PRN (10:00)
[2017-04-11] MEDS ORDERED: DEXTROSE 5% IV PRN (10:00)
[2017-04-11] MEDS ORDERED: DEXTROSE 5% 100ML 100 ML IV ONE (10:14)
[2017-04-11 10:54] LABS: ANISOCYTOSIS SLIGHT; BAND NEUTROPHILS % (MANUAL) 32 %; LYMPHOCYTES % (MANUAL) 12 % (19-48); METAMYELOCYTES % (MANUAL) 11 % (0-0); MICROCYTOSIS MODERATE; MONOCYTES % (MANUAL) 10 % (3.4-9.0); MYELOCYTES % (MANUAL) 1 % (0-0); NEUTROPHILS % (MANUAL) 34 % (40-74); PLATELET ESTIMATE ADEQUATE; PLATELET MORPHOLOGY COMMENT NORMAL; RBC MORPHOLOGY COMMENT ABNORMAL
[2017-04-11 10:55] LABS: ELLIPTOCYTE, RBC SLIGHT
[2017-04-11 11:42] LABS: ABG HCO3 15 mmol/L (23-28); ABG PCO2 38 mmHg (41-51); ABG PH 7.22 (7.31-7.41); ABG PO2 111 mmHg (80-105)
[2017-04-11] MEDS ORDERED: MANNITOL 25% 12.5GM/50ML 100 ML ONE (11:47)
[2017-04-11] MEDS ORDERED: HEPARIN SOD (PORCINE) 1000 UNIT/ML SDV ONE (11:49)
[2017-04-11] MEDS ORDERED: ALBUMIN HUMAN 100 ML IV ONE (11:49)
[2017-04-11] MEDS ORDERED: SODIUM CHLORIDE 0.9% 1000ML 2,000 ML IV PRN (12:00)
[2017-04-11] MEDS ORDERED: SODIUM CHLORIDE 0.9% 250ML 500 ML IV PRN (12:00)
[2017-04-11] MEDS ORDERED: ALBUMIN HUMAN 12.5GM / 50ML IV PRN (12:00)
[2017-04-11] MEDS ORDERED: MANNITOL 25% 12.5GM/50 ML VIAL IV PRN (12:00)
[2017-04-11] MEDS ORDERED: HEPARIN SOD (PORCINE) 1000 UNIT/ML SDV IV PRN (12:00)
[2017-04-11 12:11] LABS: ALBUMIN 1.8 g/dL (3.5-5.0); ALBUMIN/GLOBULIN RATIO 0.8 (0.8-2.0); ANION GAP 15.6 mmol/L (8-16); CREATININE, SERUM 5.44 mg/dL (0.72-1.25)
[2017-04-11 12:31] LABS: CALCIUM 6.2 mg/dL (8.4-10.2); POTASSIUM 6.6 mmol/L (3.5-5.1)
[2017-04-11] MEDS ORDERED: CALCIUM GLUCONATE 10% INJ 9.3 MEQ in SODIUM CHLORIDE 0.9% 100 ML 100 ML IV ONE (13:30)
--- NOTE | 2017-04-11 13:32 | Progress Note ---
DATE: April 11, 2017 PULMONARY MEDICINE PROGRESS NOTE SUBJECTIVE: Mr. Mai was once again seen and examined at bedside. He continues to be on Levophed 20 mcg per minute, vasopressin 0.07 units per minute, dopamine 10 mcg/kg per minute. The 20 has been decreased to D10 at 40 per hour as blood sugars have gotten better. He is on bicarbonate drip mixed in dextrose at 120 per hour. Urine output has persistently decreased overnight and for that reason the potassium started to increase and creatinine started to increase. LFTs, however, hopefully are trying to plateau off as the AC has numerically decreased a bit. Fentanyl at 150 mcg per hour and versed at 3 mg per hour. The patient had dialysis line placed today and has already been initiated on ultra filtration. REVIEW OF SYSTEMS: Cannot get as he is intubated. OBJECTIVE VITAL SIGNS: Afebrile. Vital signs noted per electronic record. GENERAL: No acute distress. He is in coma on ventilator. He is in bed actively on dialysis. HEENT: Normocephalic, atraumatic. NECK: Supple. Throat midline. LUNGS: Bilateral air entry, limited, unremarkable. CARDIOVASCULAR: S1 and S2 with no murmurs, rubs or gallops. ABDOMEN: Soft and nontender. EXTREMITIES: No clubbing or cyanosis. There is no edema yet. INTEGUMENT: No rash and no purpura. LABORATORY DATA: AST 4100, ALT 5600. Alkaline phosphatase 46, total bilirubin is 0.7. INR is 3.09. White count is 13, 40 hematocrit, 204, 000 platelets, 5.3 potassium in the morning and later up to 6.9. Bicarbonate 15, BUN 39, creatinine 4.9. IMPRESSION 1. Catastrophic ischemic bowel, status post emergency small bowel resection and creation of Billroth II gastrojejunostomy. 2. Acute respiratory failure on ventilator. 3. Shock, septic. 4. Acute kidney injury. 5. Acute liver failure. PLAN: At this time, continue emergency treatment for electrolytes and metabolic failure. The patient is on dialysis already. Continue intubated state. Ventilator support. I will decrease a little bit after dialysis fixes the acid based processes slightly. Decrease the D20 to D10 as he is on this bicarbonate drip with dextrose. The patient's pressors continued to be weaned. I will walk through the care decision and processes with nursing. Try to wean dopamine if tolerated. Continue sedation. At this time, the patient remains in very critical condition and has significant chance of mortality. If the liver enzymes can get better and the blood pressure gets better will effect mortality the most. Greater than 30 minutes of direct care once again today for multiple coordinations and interventions. Job#: [id number] KAI
[2017-04-11] MEDS ORDERED: VANCOMYCIN 1GM/NS 250 ML 250 ML IV SCH (14:15)
[2017-04-11] MEDS: FENTANYL CITRATE INJ 2,000 MCG in SODIUM CHLORIDE 0.9% 250ML 210 ML IV SCH (15:00)
--- NOTE | 2017-04-11 15:29 | Diagnostic Imaging Report ---
EXAMINATION: Abdominal ultrasound. CLINICAL INDICATION: Abdominal pain COMPARISON: None DISCUSSION: Transverse and longitudinal images of the upper abdomen were obtained. The liver is increased in size measuring 19.6 centimeters in length in the right midclavicular line and shows normal echogenicity. No focal masses are seen in the liver. There is no intrahepatic biliary dilatation. Status post cholecystectomy. The main portal vein is normal in caliber and measures 1.2 mm with normal hepatopetal flow. Pancreas is poorly visualized. The spleen is normal in echogenicity. The right kidney measures 14 centimeters in length and the left kidney measures 12 centimeters. There is normal renal cortical echogenicity and no hydronephrosis, solid mass or shadowing calculi. The visualized portions of the great vessels are normal. Abdominal ascites with pleural effusion.. IMPRESSION: Hepatomegaly. Status post cholecystectomy. Ascites and pleural effusion. Signed by: Dr. Donnell Aguila M.D. on 04/11/2017 3:25 PM
--- NOTE | 2017-04-11 15:32 | Consultation ---
DATE OF CONSULTATION: April 11, 2017 HISTORY OF PRESENT ILLNESS: History primarily from chart and electronic records, Dr. Marx and the patient's father. The patient intubated and unresponsive. He is currently on 3 pressors, hypotensive and in shock and sepsis. Mr. Wood Mai is a 37-year-old gentleman who apparently weighed 500 pounds. Seven years ago had a duodenal switch procedure done for weight loss. He lost tremendous amount of weight. No history of prior diabetes, hypertension, kidney stone disease. No history of any analgesic use or abuse. He presented with volvulus, perforated bowel, and subsequent intra-abdominal sepsis. He underwent surgery. I was called this morning by Dr. Marx because of acute kidney injury, hyperkalemia and severe metabolic acidosis. MEDICATIONS: 1 awake. No history of prior diabetes hypertension kidney stone disease. No and history of any analgesic use or use. Presented with ball. Dao. Perforated bowel interim. Current subsequent intra-abdominal sepsis underwent. Home. Surgery. I was called this morning by Dr. Marx. Because of acute kidney injury hyperkalemia. Severe metabolic acidosis. Patient was hypoglycemic. When I found him he was on dextrose 10% at 100 mL of D5 water at 125 mL an hour. He has a white count of 13.3, hemoglobin 11.2. Initial potassium 5.3, bicarbonate 15, creatinine 4.91 and 6.1. His AST is 4113, ALT 5620, albumin 1.7. ALLERGIES: NO APPARENT DRUG ALLERGIES. Currently, I have switched his IV fluids around. D10 has been dropped to about 40 ml an hour. IV bicarbonate has been started at 120 mL an hour and D5 with 3 amps of sodium bicarbonate. I have given him an amp of calcium gluconate. He is on 0.07 mcg of vasopressin which I have cut down to 0.03. Will titrate the Levophed and dopamine up. He is on 20 mikes of Levophed and 10 mikes of dopamine. Dopamine has been increased to 15 mikes and Levophed 25 mikes. He is on empiric antibiotics, on Zofran p.r.n. Currently intubated and unable to follow any commands or get any history. SOCIAL HISTORY: Does not smoke or drink. He is gainfully employed. He is not . He does not have any children. FAMILY HISTORY: Significant for hypertension. PHYSICAL EXAMINATION: VITALS: Blood pressure systolic 91. Arterial blood line 85 with a pulse rate of 91, afebrile. HEAD AND NECK: Orally intubated. No icterus noted. Pupils are reactive. LUNGS: Harsh vesicular breath sounds. Air entry good bilaterally. No rales. HEART: S1 and S2 audible. ABDOMEN: Otherwise soft but examination deferred. Dressing noted. Chest x-ray: Please see official report, shows bibasilar atelectasis. Initial CT abdomen was done without contrast and shows no hydronephrosis or stones, no masses in the kidneys. IMPRESSION: Sepsis, septic shock, intra-abdominal sepsis, laparotomy, perforated viscus, ATN, metabolic acidosis and hyperkalemia. PLAN: Plan to continue with IV bicarbonate and dextrose. Monitor patient's blood sugars. Consult infectious disease on a stat basis for broad spectrum antibiotics and antibiotic care. Arrange for immediate dialysis. Discussed with father. All questions answered. Overall prognosis guarded. Job#: [id number]
[2017-04-11] MEDS ORDERED: FLUCONAZOLE 400MG/200ML BAG 200 ML IV ONE (16:30)
--- NOTE | 2017-04-11 16:46 | Consultation ---
DATE OF CONSULTATION: April 10, 2017 REASON FOR CONSULTATION: Sepsis and peritonitis. HISTORY OF PRESENT ILLNESS: Patient is a 37-year-old male patient who is known to have a history of gastric bypass surgery, history of rotator cuff surgery, and history of Lap band in the past, who comes into the hospital with the chief complaint of abdominal pain that was severe. The patient had a history of ventral hernia, which were repaired twice in the past with mesh. Last surgery was April last year. His wounds are completely healed. He came in with severe abdominal pain. He came in on April 10, 2017, and was taken to the OR with the chief complaint of possible perforated viscus. At that point, the patient was found to have a perforated small bowel. He had resection of small bowel and takedown of gastrojejunostomy, and creation of Billroth-II gastrojejunostomy. Patient has been septic and currently on pressors, ventilated, intubated, sedated, and unable to give a history. History was taken from parents who were present at the bedside, and from chart review and the medical records. PAST MEDICAL HISTORY 1. Positive for morbid obesity, status post surgery 6 years ago. 2. History of ventral hernia, status post repair twice. 3. History of left rotator cuff surgery in the past. ALLERGIES: HE HAS NO KNOWN DRUG ALLERGIES. CURRENT HOSPITAL MEDICATIONS: He is on Flagyl, Zosyn and vancomycin. See MAR for details. FAMILY HISTORY: Positive for diabetes. SOCIAL HISTORY: He does not smoke or drink. REVIEW OF SYSTEMS: Ten systems reviewed, and all negative except as per history of present illness. PHYSICAL EXAMINATION VITAL SIGNS: His temperature is 99.9. His heart rate is 105, respirations 26, blood pressure 85/57. HEENT: His pupils are equal and reactive. Clear sclerae. CHEST: Clear. HEART: Regular rhythm and rate. No murmurs. ABDOMEN: Soft and lax. Slightly tender. Dressing is clean. He has a femoral dialysis catheter in right groin. He has peripheral lines in the bilateral antecubital and an A-line in left wrist. He has a double lumen right IJ catheter in the right neck. LAB DATA: His white count is 13, hemoglobin 11.2, hematocrit 39.5, and platelet count is 204,000. Chemistry shows sodium 132, potassium 6.6, chloride 108, CO2 15, BUN 39, creatinine 5.4, blood sugar 89. His AST is 3400. His ALT is 5500. Alkaline phosphatase and bilirubin are normal. His urinalysis was unremarkable. IMPRESSION 1. Acute perforated viscus, small bowel with secondary peritonitis. 2. Shock liver. 3. Acute kidney injury, on hemodialysis. 4. Multiorgan dysfunction syndrome and respiratory failure. 5. Coagulopathy and possible disseminated intravascular coagulation with high INR. RECOMMENDATIONS 1. Agree with Zosyn 2.25 IV q.8 h. 2. Hold vancomycin as it does not seem to be needed at this point. 3. Discontinue Flagyl as Zosyn has good anaerobic coverage, including bacteroides species. 4. Add Diflucan as this is upper GI small bowel. May include fungal elements as the cause of the peritonitis. Will await final cultures. 5. Dr. Michael's service will be following. Job#: [id number] MARTIN
[2017-04-11] MEDS: SODIUM BICARBONATE 8.4% 150 ML in DEXTROSE 5% 1000ML 1,000 ML IV SCH ×2 (17:27→20:00)
[2017-04-11] MEDS: FAMOTIDINE 20 MG/2 ML VIAL IV SCH ×2 (17:27→17:31)
[2017-04-11] MEDS: PHYTONADIONE 10 MG/ML AMP SQ SCH (17:40)
[2017-04-11 18:28] LABS: ABG HCO3 20 mmol/L (23-28); ABG PCO2 42 mmHg (41-51); ABG PH 7.29 (7.31-7.41); ABG PO2 161 mmHg (80-105)
[2017-04-11] MEDS: VASOPRESSIN 100 UNIT in DEXTROSE 5% 100ML 100 ML IV SCH (20:00)
[2017-04-11] MEDS: PIPERACILLIN/TAZO 2.25 GM 50 ML IV SCH (21:55)
[2017-04-12] VITALS (81 sets, daily range): BP systolic 80–176; BP diastolic 45–110
[2017-04-12 00:13] LABS: ABG PH 7.36 (7.31-7.41)
[2017-04-12 00:14] LABS: ABG HCO3 23 mmol/L (23-28); ABG PCO2 40 mmHg (41-51); ABG PO2 190 mmHg (80-105)
[2017-04-12] MEDS: NOREPINEPHRINE BITARTRATE/ NS 250 ML IV PRN (00:30)
[2017-04-12] MEDS: MIDAZOLAM HCL 25 MG in SODIUM CHLORIDE 0.9% 50ML 45 ML IV PRN ×3 (00:50→11:03)
[2017-04-12] MEDS: FENTANYL CITRATE INJ 2,000 MCG in SODIUM CHLORIDE 0.9% 250ML 210 ML IV SCH (03:30)
[2017-04-12] MEDS: SODIUM CHLORIDE 0.9% 250ML IRRIG IR SCH ×6 (03:30→23:45)
[2017-04-12] MEDS: DEXTROSE 20% 500 ML IV SCH (03:45)
--- NOTE | 2017-04-12 04:35 | Diagnostic Imaging Report ---
EXAM: CHEST SINGLE (PORTABLE), AP 1 view DATE: 04/12/2017 5:00 AM Time stamp on exam: 0409 hours INDICATION: Pneumonia COMPARISON: AP view of the chest April 11, 2017 FINDINGS: LINES/TUBES: Stable position of endotracheal tube, partially visualized nasal/orogastric tube and right internal jugular vein central line. LUNGS: Bibasilar atelectasis. PLEURA: Possible small effusion on the right. HEART AND MEDIASTINUM: Stable appearance. BONES AND SOFT TISSUES: No acute findings. IMPRESSION: No interval change. Signed by: Dr. Autumn Garcia M.D. on 04/12/2017 4:31 AM
[2017-04-12] MEDS: PIPERACILLIN/TAZO 2.25 GM 50 ML IV SCH ×3 (05:15→22:00)
[2017-04-12] MEDS: SODIUM BICARBONATE 8.4% 150 ML in DEXTROSE 5% 1000ML 1,000 ML IV SCH ×2 (06:22→13:45)
[2017-04-12 06:47] LABS: INR 1.71
[2017-04-12 07:11] LABS: ALBUMIN 1.5 g/dL (3.5-5.0); ALBUMIN/GLOBULIN RATIO 0.7 (0.8-2.0); ANION GAP 16.8 mmol/L (8-16); CREATININE, SERUM 5.69 mg/dL (0.72-1.25); POTASSIUM 4.8 mmol/L (3.5-5.1)
[2017-04-12 07:27] LABS: CALCIUM 6.3 mg/dL (8.4-10.2)
[2017-04-12 07:29] LABS: PHOSPHORUS 4.9 MG/DL (2.3-4.7)
[2017-04-12 07:30] LABS: MAGNESIUM 1.1 MG/DL (1.3-2.1)
[2017-04-12] MEDS ORDERED: MAGNESIUM SULFATE 2GM/50ML 50 ML IV ONE (08:15)
--- NOTE | 2017-04-12 08:52 | Operative Report ---
DATE OF PROCEDURE: April 12, 2017 PREOPERATIVE DIAGNOSES 1. Sepsis. 2. Perforated small bowel, status post small bowel resection. POSTOPERATIVE DIAGNOSES 1. Sepsis. 2. Perforated small bowel, status post small bowel resection. PROCEDURES 1. Exploratory laparotomy. 2. Irrigation and debridement of peritoneal cavity. ASSISTANTS: None. ANESTHESIA: General endotracheal. INDICATIONS AND FINDINGS: The patient a 37-year-old male, who had surgery 2 days ago for perforated gangrenous small bowel. He was returned to surgery today for re-exploration and 2nd-look procedure. At surgery, there was large amount of cloudy serous fluid in the peritoneal cavity, which was drained about 2 L. There was some fibrinous exudate on the surface of the bowel. The bowel however all appeared viable, although still somewhat dilated. Both anastomoses were noted to be intact. TECHNIQUE: After adequate general endotracheal anesthesia, patient in supine position, the abdomen was prepped and draped in sterile fashion with Betadine solution. The previous midline wound was opened by removing the sutures, holding the previously placed mesh and fascia in place. The sutures removed. There was large amount of slightly cloudy serous fluid and peritoneal cavity, which was drained. Sample taken for culture and sensitivity. All the fluid drained. The bowel was examined and there was some grayish fibrinous exudate on the surface of the bowel and this was removed as best as could be done. There were 2 separate anastomoses, 1 gastric jejunostomy, the other a small bowel anastomosis. These were both inspected, noted to be intact. The small bowel appeared viable throughout right from the ligament Treitz through the terminal ileum. The peritoneal cavity was irrigated once again with warm saline containing Bacitracin. A sample of the peritoneal fluid had been taken for culture and sensitivity. Decided the patient likely would need just 1 more return to the operating room in 48 hours. The midline was then closed with running suture of #1 PDS. Mesh that had previously been placed was left in left intact to be removed with the neck surgery. The patient tolerated the procedure well. Estimated blood loss was less than 5 mL. There were no complications. All counts were correct. Patient was taken to the ICU in critical condition. Job#: [id number] CQ
[2017-04-12 08:56] LABS: BASOPHILS # (AUTO) 0.1 (0.0-0.1); BASOPHILS % 0.4 % (0.0-1.0); EOSINOPHILS # (AUTO) 0.2 (0.0-0.4); EOSINOPHILS % 1.5 % (0.0-6.0); HEMATOCRIT 34.2 % (38.2-49.6); HEMOGLOBIN 10.2 g/dL (14.0-18.0); LYMPHOCYTES # (AUTO) 0.4 (1.0-3.2); LYMPHOCYTES % 3.5 % (18.0-39.1); MEAN CORPUSCULAR HEMOGLOBIN 18.8 pg (28-32); MEAN CORPUSCULAR HGB CONC 29.8 g/dL (31-35); MONOCYTES # (AUTO) 0.7 (0.2-0.8); MONOCYTES % 6.3 % (4.4-11.3); NEUTROPHILS % 87.9 % (38.7-80.0); PLATELET COUNT 137 x10e3/uL (140-360); RED BLOOD COUNT 5.43 x10e6/uL (4.3-5.7); RED CELL DISTRIBUTION WIDTH 19.1 % (11.7-14.4)
[2017-04-12] MEDS: FAMOTIDINE 20 MG/2 ML VIAL IV SCH ×2 (09:30→17:30)
[2017-04-12] MEDS: FLUCONAZOLE 200 MG/100 ML 100 ML IV SCH (09:30)
[2017-04-12] MEDS: HEPARIN SOD (PORCINE) 5,000 UNIT/ML VIAL SC SCH (09:31)
[2017-04-12 09:50] LABS: ABG HCO3 22 mmol/L (23-28); ABG PCO2 40 mmHg (41-51); ABG PH 7.34 (7.31-7.41); ABG PO2 111 mmHg (80-105)
[2017-04-12 10:12] LABS: BAND NEUTROPHILS % (MANUAL) 10 %; EOSINOPHILS % (MANUAL) 1 % (0-7); LYMPHOCYTES % (MANUAL) 8 % (19-48); METAMYELOCYTES % (MANUAL) 1 % (0-0); MONOCYTES % (MANUAL) 2 % (3.4-9.0); MYELOCYTES % (MANUAL) 1 % (0-0); NEUTROPHILS % (MANUAL) 77 % (40-74)
[2017-04-12 10:13] LABS: ANISOCYTOSIS SLIG; PLATELET ESTIMATE ADEQUATE; PLATELET MORPHOLOGY COMMENT NORMAL; POIKILOCYTOSIS SLIGHT; RBC MORPHOLOGY COMMENT ABNORMAL
[2017-04-12 10:14] LABS: BURR CELLS SLIGHT; ELLIPTOCYTE, RBC SLIGHT; TARGET CELLS FEW
[2017-04-12] MEDS ORDERED: HEPARIN SOD (PORCINE) 1000 UNIT/ML SDV IV PRN (11:30)
[2017-04-12] MEDS: PHYTONADIONE 10 MG/ML AMP SQ SCH (12:48)
[2017-04-12 13:57] LABS: ABG HCO3 28 mmol/L (23-28); ABG PCO2 39 mmHg (41-51); ABG PH 7.47 (7.31-7.41); ABG PO2 232 mmHg (80-105)
--- NOTE | 2017-04-12 14:33 | Progress Note ---
DATE: April 12, 2017 PULMONARY MEDICINE PROGRESS NOTE SUBJECTIVE: Mr. Mai was seen and examined at bedside. He is going anuric regarding urine output. He was able to get ultrafiltration 3 hours on the machine with no significant pull of balance today. Patient on ventilator, 26/550/80/5. Fentanyl 150 per hour, Versed 5 per hour. Patient on 10 mcg dopamine, off vasopressin, on 15 of Levophed. REVIEW OF SYSTEMS: Cannot get as he is intubated. OBJECTIVE VITAL SIGNS: Afebrile. Vital signs not stable at all. HEENT: Normocephalic, atraumatic. NECK: Supple. Throat midline. LUNGS: Bilateral air entry, rare rhonchi. CARDIOVASCULAR: S1 and S2. No murmurs, rubs or gallops. ABDOMINAL: Soft, nontender, postoperative. INTEGUMENT: No rash. No purpura. NEUROLOGIC: Limited evaluation as he is sedated. LABS: Potassium 4.8, creatinine 5.7. White count 11, hematocrit 34. INR 1.7. AST 1.7 thousand, ALT 3.5 thousand. Chest x-ray with low lung volumes, right small effusion, mostly clear. IMPRESSION AND PLAN 1. Acute respiratory failure, intubated. 2. Shock, septic. 3. Acute kidney failure. 4. Acute liver failure, improving. 5. Coagulopathy. 6. Admit with ischemic bowel, volvulus related. 7. Postoperative state, status post resection small bowel as well as Billroth gastrojejunostomy creation. 8. Hemofiltration today. Maintain pressors but adjust. Levophed as first-line pressor with some vasopressin to help. Dopamine is not needed from the shock point of view unless Nephrology wants a certain dose. Sedation on holiday is indicated. Serial evaluations. Will slowly wean down on ventilator. Job#: [id number] EV
[2017-04-12] MEDS: VASOPRESSIN 100 UNIT in DEXTROSE 5% 100ML 100 ML IV SCH (14:46)
[2017-04-12] MEDS: HEPARIN 25,000U/0.45% NS 250ML 1,500 UNIT in SODIUM CHLORIDE 0.9% 250ML 0 ML IV SCH (17:04)
[2017-04-12] MEDS ORDERED: BUMETANIDE INJ 0.25MG/ML 4ML VIAL IV STA (19:09)
[2017-04-12 20:48] LABS: ALBUMIN 1.5 g/dL (3.5-5.0); ALBUMIN/GLOBULIN RATIO 0.6 (0.8-2.0); ANION GAP 15.9 mmol/L (8-16); CREATININE, SERUM 5.59 mg/dL (0.72-1.25); POTASSIUM 4.9 mmol/L (3.5-5.1)
[2017-04-12 21:02] LABS: CALCIUM 6.7 mg/dL (8.4-10.2)
[2017-04-12] MEDS ORDERED: DEXTROSE 5%/0.45% SOD CHL 1,000 ML IV SCH (21:15)
[2017-04-12] MEDS ORDERED: CALCIUM GLUCONATE 10% INJ 4.65 MEQ in SODIUM CHLORIDE 0.9% 50ML 50 ML IV ONE (21:30)
[2017-04-12] MEDS ORDERED: DEXTROSE 50% SYRINGE 50 ML IV ONE (21:30)
[2017-04-12] MEDS ORDERED: SODIUM CHLORIDE 0.9% 50ML 0 ML ONE (21:34)
[2017-04-12] MEDS: DEXTROSE 10% 1,000 ML IV SCH (22:00)
[2017-04-13] VITALS (89 sets, daily range): BP systolic 106–138; BP diastolic 61–90
[2017-04-13] MEDS: SODIUM CHLORIDE 0.9% 250ML IRRIG IR SCH ×6 (03:45→23:30)
[2017-04-13] MEDS: PIPERACILLIN/TAZO 2.25 GM 50 ML IV SCH ×3 (05:30→22:00)
[2017-04-13 05:56] LABS: BASOPHILS % 0.2 % (0.0-1.0); EOSINOPHILS # (AUTO) 0.3 (0.0-0.4); EOSINOPHILS % 2.6 % (0.0-6.0); HEMOGLOBIN 9.7 g/dL (14.0-18.0); LYMPHOCYTES # (AUTO) 0.5 (1.0-3.2); LYMPHOCYTES % 3.9 % (18.0-39.1); MEAN CORPUSCULAR HEMOGLOBIN 18.5 pg (28-32); MEAN CORPUSCULAR HGB CONC 29.4 g/dL (31-35); MONOCYTES # (AUTO) 1.4 (0.2-0.8); NEUTROPHILS # (AUTO) 10.4 (2.1-6.9); NEUTROPHILS % 81.5 % (38.7-80.0); PLATELET COUNT 91 x10e3/uL (140-360); RED BLOOD COUNT 5.24 x10e6/uL (4.3-5.7)
[2017-04-13 06:18] LABS: ALBUMIN 1.5 g/dL (3.5-5.0); ALBUMIN/GLOBULIN RATIO 0.6 (0.8-2.0); ANION GAP 13.2 mmol/L (8-16); CREATININE, SERUM 6.4 mg/dL (0.72-1.25); POTASSIUM 4.2 mmol/L (3.5-5.1)
--- NOTE | 2017-04-13 06:29 | Diagnostic Imaging Report ---
EXAM: CHEST SINGLE (PORTABLE), AP 1 view DATE: 04/13/2017 5:00 AM Time stamp on exam: 0547 hours INDICATION: Pneumonia COMPARISON: AP view of the chest April 12, 2017 FINDINGS: LINES/TUBES: Stable position of right internal jugular vein central line, endotracheal tube and nasal/orogastric tube LUNGS: Bibasilar atelectasis PLEURA: Moderate bilateral pleural effusions, increased from prior exam HEART AND MEDIASTINUM: Stable appearance BONES AND SOFT TISSUES: No acute findings. IMPRESSION: Increasing bilateral pleural effusions Signed by: Dr. Autumn Garcia M.D. on 04/13/2017 6:26 AM
[2017-04-13 06:31] LABS: CALCIUM 6.5 mg/dL (8.4-10.2)
[2017-04-13] MEDS ORDERED: VITAMIN B-121000 MCG IM (06:34)
[2017-04-13] MEDS ORDERED: CALCIUM GLUCONATE 10% INJ 4.65 MEQ in SODIUM CHLORIDE 0.9% 50ML 50 ML IV ONE (07:30)
[2017-04-13] MEDS: FAMOTIDINE 20 MG/2 ML VIAL IV SCH ×2 (08:46→17:56)
[2017-04-13] MEDS: FLUCONAZOLE 200 MG/100 ML 100 ML IV SCH ×2 (08:46→11:32)
[2017-04-13] MEDS ORDERED: HEPARIN 25,000U/0.45% NS 250ML 250 ML ONE (09:57)
[2017-04-13] MEDS: NOREPINEPHRINE BITARTRATE/ NS 250 ML IV PRN (11:00)
[2017-04-13] MEDS: FENTANYL CITRATE INJ 2,000 MCG in SODIUM CHLORIDE 0.9% 250ML 210 ML IV SCH ×3 (11:00→17:57)
[2017-04-13] MEDS: PHYTONADIONE 10 MG/ML AMP SQ SCH (12:45)
--- NOTE | 2017-04-13 13:59 | Progress Note ---
DATE: April 13, 2017 PULMONARY MEDICINE PROGRESS NOTE SUBJECTIVE: Mr. Mai was seen and examined at bedside. Currently weaned down on Levophed to 10 mcg per minute. The patient is off the vasopressin and off the dopamine. The patient was able to sustain hemodialysis for 3 liters negative balance over 3-1/2 hours of dialysis. The patient was started on a heparin drip for the DVT and is tolerating. Bumex drip 1 mg per hour. D10 at 60 per hour. LFTs continue to improve slowly. The peritoneal cultures are showing sensitive organisms mainly. He is on a ventilator intubated at 26/440/40%/5, peak of 20, respiratory rate 26, 470 tidal volume. Sedation is off since 2:30 p.m. yesterday and will continue to await further awakening, although he will spontaneously eye open at times with moderate stimulus. REVIEW OF SYSTEMS: Cannot get as he is intubated. OBJECTIVE VITAL SIGNS: Afebrile. Vital signs noted per electronic record. GENERAL: No acute distress, but he is sedated heavily still from previous medications and not in any pain overt. HEENT: Normocephalic, atraumatic. NECK: Supple. Throat midline. LUNGS: Bilateral air entry, decreased breath sounds at bases. CARDIOVASCULAR: S1 and S2. No murmurs, rubs or gallops. ABDOMEN: Soft, nontender. EXTREMITIES: No clubbing. No cyanosis. There is some small edema. INTEGUMENT: No rash. No purpura. LABS: 13 white count, 33 hematocrit, 91 platelets, 39 BUN, creatinine 6.4, INR 1.7, AST 812, ALT 2634, T-bilirubin 1.2, serum bicarbonate 26. IMPRESSION AND PLAN 1. Acute respiratory failure. No extubation today. Continue ventilator support. 2. Encephalopathy, multifactorial, including medications and toxic metabolic etiology. Continue sedation all day. Resedate him when he is reasonably mobilizing or if he becomes dangerous this sedation holiday. 3. Acute kidney failure. Continue dialysis per renal. Follow up urine output. No large changes, but we await evolution of this process and hopefully renal recovery. 4. Critical hypoglycemia. Continue dextrose at 60 mL per hour for nutrition. As time goes, will consider parenteral nutrition needs. 5. Emerging pleural effusions. Will do ultrasound routinely and will consider chest tube placement by early next week. 6. Acidosis, multifactorial. Will recheck ABG and see if we should wean down the ventilator at all. 7. Shock, septic. Wean down on Levophed. 8. New diagnosis of venous thrombosis. Continue heparin drip, but it will be held at night today for possible operation tomorrow morning. 9. Admit with volvulus and perforated necrotic bowel, status post wide operative treatment. Continue postoperative wound care and washout expected tomorrow with re-evaluation of the integrity. 10. Acute liver failure. Continue supportive care and allow recovery. Greater than 30 minutes of direct care today and in the last 24 hours. Critical condition, but slowly improving. Job#: [id number]
[2017-04-13 14:30] LABS: ABG HCO3 27 mmol/L (23-28); ABG PCO2 45 mmHg (41-51); ABG PH 7.38 (7.31-7.41); ABG PO2 107 mmHg (80-105)
[2017-04-13] MEDS: HEPARIN 25,000U/0.45% NS 250ML 1,500 UNIT in SODIUM CHLORIDE 0.9% 250ML 0 ML IV SCH (16:14)
--- NOTE | 2017-04-13 17:47 | Progress Note ---
DATE: Mr. Mai is in the ICU intubated. While I was here evaluating him, he dropped his saturation to 60. The patient was suctioned. He is intubated. The family is there. His oxygen saturation improved. He is intubated and sedated. Laboratory data reviewed. Chart reviewed. PHYSICAL EXAMINATION GENERAL: He is obese. HEENT: He is not icteric. Oral intubation. CHEST: A few crackles at the bases. COR: S1 and S2. ABDOMEN: Soft. Bowel sounds present but hypoactive. IMPRESSION 1. Sepsis. 2. Hypoxemia, could be aspiration, mucous plug versus pulmonary embolism. He already has a deep vein thrombosis. He is on heparin. Discussed with the family. His wound culture has been reviewed. Laboratory data reviewed. From an infectious disease point of view, continue with Zosyn. Continue with Diflucan. Continue with supportive care and respiratory support. From nurses, he is poor. Will follow with you. Job#: [id number]
[2017-04-13] MEDS: MIDAZOLAM HCL 25 MG in SODIUM CHLORIDE 0.9% 50ML 45 ML IV PRN (17:56)
[2017-04-13] MEDS: VASOPRESSIN 100 UNIT in DEXTROSE 5% 100ML 100 ML IV SCH (17:57)
[2017-04-13 18:03] LABS: ABG PCO2 56 mmHg (41-51); ABG PO2 39 mmHg (80-105)
[2017-04-13 18:04] LABS: ABG HCO3 27 mmol/L (23-28)
[2017-04-13 18:06] LABS: ABG PCO2 49 mmHg (41-51); ABG PH 7.36 (7.31-7.41); ABG PO2 74 mmHg (80-105)
[2017-04-13 18:07] LABS: ABG HCO3 28 mmol/L (23-28)
[2017-04-13] MEDS: BUMETANIDE 10 MG in SODIUM CHLORIDE 0.9% 100 ML 60 ML IV SCH (19:45)
[2017-04-13] MEDS: DEXTROSE 10% 1,000 ML IV SCH (20:30)
[2017-04-13 22:44] LABS: ABG HCO3 29 mmol/L (23-28); ABG PCO2 51 mmHg (41-51); ABG PH 7.36 (7.31-7.41); ABG PO2 77 mmHg (80-105)
[2017-04-14] VITALS (78 sets, daily range): BP systolic 102–128; BP diastolic 65–79
[2017-04-14] MEDS: MIDAZOLAM HCL 25 MG in SODIUM CHLORIDE 0.9% 50ML 45 ML IV PRN ×2 (02:45→21:00)
[2017-04-14] MEDS: SODIUM CHLORIDE 0.9% 250ML IRRIG IR SCH ×6 (03:45→23:30)
[2017-04-14] MEDS: PIPERACILLIN/TAZO 2.25 GM 50 ML IV SCH (05:45)
[2017-04-14 05:53] LABS: BASOPHILS % 0.2 % (0.0-1.0); EOSINOPHILS # (AUTO) 0.2 (0.0-0.4); EOSINOPHILS % 1.5 % (0.0-6.0); HEMATOCRIT 29.9 % (38.2-49.6); HEMOGLOBIN 8.7 g/dL (14.0-18.0); LYMPHOCYTES # (AUTO) 0.5 (1.0-3.2); LYMPHOCYTES % 4.3 % (18.0-39.1); MEAN CORPUSCULAR HEMOGLOBIN 18.2 pg (28-32); MEAN CORPUSCULAR HGB CONC 29.1 g/dL (31-35); MEAN CORPUSCULAR VOLUME 62.6 fL (81-99); MONOCYTES # (AUTO) 1.6 (0.2-0.8); MONOCYTES % 14.1 % (4.4-11.3); NEUTROPHILS # (AUTO) 8.7 (2.1-6.9); NEUTROPHILS % 78.7 % (38.7-80.0); PLATELET COUNT 79 x10e3/uL (140-360); RED BLOOD COUNT 4.78 x10e6/uL (4.3-5.7); RED CELL DISTRIBUTION WIDTH 19.2 % (11.7-14.4)
[2017-04-14 06:16] LABS: ALBUMIN 1.5 g/dL (3.5-5.0); ALBUMIN/GLOBULIN RATIO 0.6 (0.8-2.0); ANION GAP 12.6 mmol/L (8-16); CALCIUM 7.1 mg/dL (8.4-10.2); CREATININE, SERUM 7.13 mg/dL (0.72-1.25); POTASSIUM 4.6 mmol/L (3.5-5.1)
[2017-04-14 06:51] LABS: MAGNESIUM 1.6 MG/DL (1.3-2.1); PHOSPHORUS 4.4 MG/DL (2.3-4.7)
[2017-04-14] MEDS: BUMETANIDE 10 MG in SODIUM CHLORIDE 0.9% 100 ML 60 ML IV SCH ×2 (07:00→15:56)
[2017-04-14] MEDS ORDERED: BACITRACIN 50,000 UNIT VIAL ONE (07:08)
[2017-04-14 07:09] LABS: THYROID STIMULATING HORMONE 3.714 uIU/mL (0.350-4.940)
--- NOTE | 2017-04-14 07:18 | Diagnostic Imaging Report ---
Examination: Single AP view of the chest. COMPARISON: 04/13/2017 INDICATION: Pneumonia DISCUSSION: Lines/tubes: Stable right IJ, endotracheal tube, and enteric tube. Lungs: Stable pulmonary venous congestion with bilateral effusions and lower lung atelectasis/consolidation. Heart and mediastinum: The heart and the mediastinum are unremarkable. Bones and soft tissues: No acute bony abnormalities. IMPRESSION: Stable pulmonary venous congestion with bilateral effusions and lower lung atelectasis/consolidation. Signed by: Dr. Donnell Aguila M.D. on 04/14/2017 7:15 AM
[2017-04-14] MEDS: FAMOTIDINE 20 MG/2 ML VIAL IV SCH ×2 (09:58→16:26)
[2017-04-14] MEDS: PANTOPRAZOLE INJ 40 MG in SODIUM CHLORIDE 0.9% 50ML 50 ML IV SCH ×3 (10:06→19:30)
[2017-04-14 11:23] LABS: EOSINOPHILS % (MANUAL) 1 % (0-7); LYMPHOCYTES % (MANUAL) 1 % (19-48); MONOCYTES % (MANUAL) 16 % (3.4-9.0); NEUTROPHILS % (MANUAL) 82 % (40-74)
[2017-04-14 11:24] LABS: ANISOCYTOSIS SLIGHT; HYPOCHROMASIA SLIGHT; MICROCYTOSIS SLIGHT; PLATELET ESTIMATE SLIGHTLY DECREASED; PLATELET MORPHOLOGY COMMENT NORMAL
--- NOTE | 2017-04-14 13:54 | Operative Report ---
DATE OF PROCEDURE: April 14, 2017 PREOPERATIVE DIAGNOSES 1. Gangrenous small bowel with perforation status post resection of infected abdominal wall mesh. 2. Recurrent incisional hernia. POSTOPERATIVE DIAGNOSES 1. Gangrenous small bowel with perforation status post resection of infected abdominal wall mesh. 2. Recurrent incisional hernia. 3. Perforated gastric ulcer. PROCEDURES 1. Exploratory laparotomy. 2. Closure of perforated gastric ulcer. 3. Removal of infected abdominal wall mesh. 4. Repair of recurrent incisional hernia. 5. Irrigation of peritoneal cavity. SECURITY SHIFT SUPERVISOR: None. ANESTHESIA: General endotracheal. INDICATIONS AND FINDINGS: Patient is a 37-year-old male who had surgery about 4 days ago for small-bowel volvulus and perforation. He was returned to surgery for scheduled re-exploration 1 previous time and now is returned for scheduled re-exploration and irrigation of the peritoneal cavity today. At surgery, there was found to be some serosanguineous fluid in the lower abdomen. The bowel all appeared viable. In the upper abdomen adjacent to the stomach, there was bilious fluid. There was found be a perforation at the end of the divided stomach along the lesser curvature with bilious fluid leaking from this area. The 2 previous anastomoses were noted to be intact with no leakage. Small bowel all appeared viable. There was mesh in the abdominal wall, which was contained from the previous surgeries, and this was all removed. There was a recurrent hernia on the left side of the abdomen which was repaired from inside the abdomen. TECHNIQUE: After adequate general endotracheal anesthesia, with the patient in the supine position, the abdomen was prepped and draped in a sterile fashion with Betadine solution. Previous midline wound was opened and the peritoneal cavity entered. In the lower abdomen, there was serosanguineous fluid, which was evacuated. Sample was taken for culture and sensitivity. Small bowel in this area was examined, and all appeared viable. The previous small-bowel anastomosis was noted to be intact. All the fibrinous lesions were broken up, freeing the small bowel completely. As the upper abdomen was approached, there was found to be bilious fluid in the upper abdomen. Approximately 200 mL of bilious fluid was noted. First, it was thought this was coming from the gastrojejunostomy, but this was noted to be intact. Further examination revealed perforation along the closed-off end of the stomach at the lesser curvature. Perforation was about 6 mm in diameter. This was closed in 2 layers using 3-0 Vicryl and 3-0 silk. The small bowel from the Billroth II anastomosis was also brought over this area as a serosal patch sutured over the closed end of the stomach using 3-0 silk. The peritoneal cavity was irrigated with warm saline, and hemostasis was seen to be adequate. The previously placed abdominal mesh, which appeared contaminated, was then removed using electrocautery. This was freed up from the abdominal wall and removed completely. Areas of bleeding were controlled with electrocautery. There was noted be a recurrent hernia on the left side of the abdomen. This was repaired from inside the abdomen with interrupted sutures of #1 Prolene. The peritoneal cavity was irrigated further with a large volume of warm antibiotic solution and inspected for hemostasis, which was seen to be adequate. A 19-Armenian Kirit drain was placed in the upper abdomen just inferior to the area of the perforation of the stomach. Wound was inspected for hemostasis, which was seen to be adequate. Midline fascia was then closed. There was adequate fascia to close. It has had previous component separation, and this was closed with a running suture of #1 Prolene. Skin and subcutaneous tissue were left open and dressed with antibiotic solution. Moistened gauze and sterile dressing were applied. Patient tolerated the procedure well. Estimated blood loss was 50 mL. There were no complications. All counts were correct. Patient was taken to the recovery room in satisfactory condition. Job#: [id number] MH cc:MD RENU COFFEY MD GEORGE NASSIF, M.D.
[2017-04-14] MEDS: DEXTROSE 10% 1,000 ML IV SCH (13:56)
--- NOTE | 2017-04-14 15:11 | Progress Note ---
DATE: April 14, 2017 PULMONARY MEDICINE PROGRESS NOTE SUBJECTIVE: Mr. Mai was seen and examined at bedside. He continues to have critical state. He was able to be weaned off Levophed during the night. Had 3.3 liters in, 3.8 liters recorded via I's and O's by nursing. He had dialysis successfully with 3 liters output. Today he is planned for more dialysis with the same goal in mind today. Has 99% oxygen saturation on ventilator. There was a critical hypoxemic episode last night that was refractory for a number of minutes, but we were able to resuscitate the oxygen level. Also, a mucous plus and possible ventilator dyssynchrony components were assessed. The platelets continue to fall. The patient went back to the operating room today, and he had a perforated gastric ulcer. The patient furthermore had repair of it with washout. The patient was sent back to the ICU afterwards. REVIEW OF SYSTEMS: Cannot get as he is intubated and sedated on the ventilator and under sedation. PHYSICAL EXAMINATION VITAL SIGNS: Stable at current, although intermittently unstable during the day. GENERAL: In bed, induced coma, intubated. HEENT: Normocephalic, atraumatic. NECK: Supple. Throat midline. LUNGS: Bilateral air entry, limited, a few rhonchi. CARDIOVASCULAR: S1 and S2. No murmurs, rubs or gallops. ABDOMEN: Soft, nontender. EXTREMITIES: No clubbing. No cyanosis. There is 2+ edema throughout his body. INTEGUMENT: No rash. No purpura. Large bandages across his abdomen at this time. LABS: 79 platelets, 11 white count, 30 hematocrit, 41 BUN, creatinine 7.1, 4.6 potassium. AST 362, ALT 1843. INR was 1.7 two days ago. Chest x-ray with increasing effusions, mild overload intravascularly despite moderate to large effusions. IMPRESSION AND PLAN 1. Acute respiratory failure. Maintain intubated. 2. Shock, resolved hopefully. Stop the pressors. 3. Encephalopathy, multifactorial, probably predominantly medical induced. Continue sedation due to the dangers of coming off sedation. 4. Acute renal failure. Continue renal replacement therapy including today with hemodialysis. 5. Acute liver failure, shock liver. This is getting better. Continue observation with perfusion and await healing of the liver. 6. Coagulopathy, better. 7. Secondary peritonitis. 8. Postoperative state, status post partial bowel resection for , ischemic bowel with perforation. Continue postoperative care. 9. Postoperative state, status post repeat surgery for gastric ulcer. At this time, we will follow this as well. 10. Thromboembolic disease. Platelets have come down. We will have IVC filter placed. 11. Pleural effusions. Ultrasound was ordered, but the patient would likely benefit from bilateral chest tubes. Will follow clinically. 12. Cardiomyopathy. Continue current care and supportive treatment. Ensure electrolytes are maintained appropriately. Greater than 30 minutes of direct care today, multiple evaluations and coordination. Will follow up clinically. Job#: [id number]
[2017-04-14] MEDS: HEPARIN 25,000U/0.45% NS 250ML 1,500 UNIT in SODIUM CHLORIDE 0.9% 250ML 0 ML IV SCH (15:53)
[2017-04-14] MEDS: MEROPENEM 500MG 500 MG in WATER STERILE 10ML VIAL 10 ML IV SCH (16:05)
[2017-04-14] MEDS: VASOPRESSIN 100 UNIT in DEXTROSE 5% 100ML 100 ML IV SCH (16:26)
[2017-04-14] MEDS ORDERED: SODIUM CHLORIDE 0.9% 500ML 500 ML ONE (17:03)
[2017-04-14] MEDS ORDERED: IOPAMIDOL 300MG/ML 50ML INFUS..BTL IV ONE ×2 (17:03→17:10)
[2017-04-14] MEDS ORDERED: LIDOCAINE HCL 2% LOCAL 20 ML VIAL ONE (17:05)
--- NOTE | 2017-04-14 18:24 | Diagnostic Imaging Report ---
Exam:Ultrasound guidance for thoracentesis History:Ultrasound guidance for thoracentesis Comparison: None available Findings:See impression Impression: Ultrasound guidance provided by the radiology department for thoracentesis. Signed by: Dr. Donnell Aguila M.D. on 04/14/2017 6:20 PM
[2017-04-14] MEDS ORDERED: PHENYLEPHRINE HCL 1% 10 MG/ML VIAL ONE (18:56)
[2017-04-14] MEDS ORDERED: FENTANYL CITRATE/PF 100MCG/2 ML INJ ONE (19:02)
[2017-04-14 19:35] LABS: BODY FLUID APPEARANCE SL.CLOUDY; BODY FLUID COLOR YELLOW; BODY FLUID TYPE PLEURAL
[2017-04-14 19:36] LABS: RBC,BODY FLUID 1079 cells/uL; WBC,BODY FLUID 1470 cells/uL
[2017-04-14 19:52] LABS: LYMPHOCYTES,BODY FLUID 3 %; MONO/MACROPHG,BODY FLUID 4 %; NEUTROPHILS,BODY FLUID 81 %
[2017-04-14 19:53] LABS: OTHER CELLS,BODY FLUID 12 %
[2017-04-14] MEDS ORDERED: CENTRAL TPN FORMULA 1 BAG IV SCH (20:00)
[2017-04-15] VITALS (100 sets, daily range): BP systolic 112–140; BP diastolic 66–91
[2017-04-15] MEDS: DEXTROSE 10% 1,000 ML IV SCH ×2 (00:10→07:11)
[2017-04-15] MEDS: PANTOPRAZOL 40MG/SOD CHL 0.9% 50 ML IV SCH ×3 (00:30→19:42)
[2017-04-15] MEDS: PANTOPRAZOLE INJ 40 MG in SODIUM CHLORIDE 0.9% 50ML 50 ML IV SCH ×2 (01:00→07:11)
[2017-04-15] MEDS: BUMETANIDE 10 MG in SODIUM CHLORIDE 0.9% 100 ML 60 ML IV SCH ×4 (03:00→14:00)
[2017-04-15] MEDS: SODIUM CHLORIDE 0.9% 250ML IRRIG IR SCH ×6 (03:57→23:15)
[2017-04-15 05:38] LABS: BASOPHILS % 0.2 % (0.0-1.0); EOSINOPHILS # (AUTO) 0.2 (0.0-0.4); EOSINOPHILS % 2.2 % (0.0-6.0); HEMATOCRIT 26.5 % (38.2-49.6); LYMPHOCYTES # (AUTO) 0.5 (1.0-3.2); LYMPHOCYTES % 4.6 % (18.0-39.1); MEAN CORPUSCULAR HEMOGLOBIN 18.4 pg (28-32); MEAN CORPUSCULAR HGB CONC 29.1 g/dL (31-35); MEAN CORPUSCULAR VOLUME 63.4 fL (81-99); MONOCYTES # (AUTO) 1.7 (0.2-0.8); MONOCYTES % 15.9 % (4.4-11.3); NEUTROPHILS # (AUTO) 7.8 (2.1-6.9); NEUTROPHILS % 74.3 % (38.7-80.0); PLATELET COUNT 94 x10e3/uL (140-360); RED BLOOD COUNT 4.18 x10e6/uL (4.3-5.7); RED CELL DISTRIBUTION WIDTH 19.1 % (11.7-14.4)
[2017-04-15 05:52] LABS: HEMOGLOBIN 7.7 g/dL (14.0-18.0)
[2017-04-15 05:54] LABS: ALBUMIN 1.3 g/dL (3.5-5.0); ANION GAP 12.2 mmol/L (8-16); BILIRUBIN,DIRECT 0.7 mg/dL (0.0-5.0); CREATININE, SERUM 7.31 mg/dL (0.72-1.25); MAGNESIUM 1.9 MG/DL (1.3-2.1); PHOSPHORUS 4.3 MG/DL (2.3-4.7); POTASSIUM 4.2 mmol/L (3.5-5.1)
[2017-04-15 06:04] LABS: CALCIUM 7.1 mg/dL (8.4-10.2)
--- NOTE | 2017-04-15 06:56 | Diagnostic Imaging Report ---
EXAM: CHEST SINGLE (PORTABLE), AP 1 view DATE: 04/15/2017 5:00 AM Time stamp on exam: 0530 hours INDICATION: Pneumonia COMPARISON: AP view of the chest April 14, 2017 FINDINGS: LINES/TUBES: Stable position of right internal jugular vein central line, endotracheal tube and nasal/orogastric tube. LUNGS: Stable vascular congestion/edema. PLEURA: Layering bilateral pleural effusions. HEART AND MEDIASTINUM: Stable appearance. BONES AND SOFT TISSUES: No acute findings. IMPRESSION: No interval change Signed by: Dr. Autumn Garcia M.D. on 04/15/2017 6:53 AM
[2017-04-15 08:34] LABS: EOSINOPHILS % (MANUAL) 3 % (0-7); HYPOCHROMASIA MODERATE; LYMPHOCYTES % (MANUAL) 5 % (19-48); METAMYELOCYTES % (MANUAL) 1 % (0-0); MONOCYTES % (MANUAL) 14 % (3.4-9.0); MYELOCYTES % (MANUAL) 1 % (0-0); NEUTROPHILS % (MANUAL) 76 % (40-74); PLATELET ESTIMATE SLIGHTLY DECREASED; PLATELET MORPHOLOGY COMMENT FEW LARGE; RBC MORPHOLOGY COMMENT NORMAL
[2017-04-15 08:35] LABS: ANISOCYTOSIS SLIGHT; ELLIPTOCYTE, RBC SLIGHT
[2017-04-15] MEDS: VASOPRESSIN 100 UNIT in DEXTROSE 5% 100ML 100 ML IV SCH (09:06)
[2017-04-15] MEDS: FLUCONAZOLE 200 MG/100 ML 100 ML IV SCH (09:30)
[2017-04-15] MEDS: MEROPENEM 500MG 500 MG in WATER STERILE 10ML VIAL 10 ML IV SCH ×2 (09:30→19:44)
[2017-04-15] MEDS: FAMOTIDINE 20 MG/2 ML VIAL IV SCH ×2 (09:30→19:44)
[2017-04-15] MEDS: FENTANYL CITRATE INJ 2,000 MCG in SODIUM CHLORIDE 0.9% 250ML 210 ML IV SCH (11:00)
--- NOTE | 2017-04-15 12:20 | Progress Note ---
DATE: April 15, 2017 PULMONARY MEDICINE PROGRESS NOTE SUBJECTIVE: Mr. Mai was seen and examined at bedside. He continues to have steady progress. He remains off pressors, but he is still intubated. In 2.9 liters, 1.3 liters out, which is an improvement as he is starting to make some urine. The patient 250 mcg at 60 mL per hour and Versed at 2 mg per hour. He is on proton pump inhibitor drip. He did get IVC filter placement yesterday. REVIEW OF SYSTEMS: Cannot get as he is intubated. OBJECTIVE: VITAL SIGNS: Afebrile, vital signs noted per chart record. GENERAL: No acute distress on ventilator, in coma. HEENT: Normocephalic, atraumatic. NECK: Supple. Throat midline. LUNGS: Bilateral air entry. Few rhonchi. CARDIOVASCULAR: S1 and S2. No murmurs, rubs or gallops. ABDOMINAL EXAMINATION: Soft and nontender. EXTREMITIES: No clubbing, no cyanosis. There is small edema. INTEGUMENT: No rash. No purpura. LABS: Potassium 4.2, BUN 46, creatinine 7.3. White count 11, hematocrit 27, 94. IMPRESSION AND PLAN 1. Postoperative state, status post partial bowel resection with creation of Billroth 2 gastrojejunostomy. 2. Volvulus, severe, with secondary necrotic bowel with perforation. 3. Acute respiratory failure, on ventilator, intubated. 4. Acute renal failure, oliguric at this time. 5. Acute liver failure, improving. 6. Coagulopathy, improved. 7. Pleural effusions status post 200 mL out on thoracentesis yesterday. 8. Encephalopathy, induced mainly by medications and possible other metabolic issues. 9. Thromboembolic disease, acute. Status post IVC filter. At this time, continue to follow him up. Will repeat chest x-rays and decide if we need to drain the pleural effusion and a pleural ultrasound will be helpful. Follow up pleural fluid analysis. Continue sedation, but he should be close to getting sedation holiday in consideration for extubation. Patient did have severe hypoxemia a day and a half ago when we gave him sedation holiday, so will give him a little bit more time for today. Repeat blood gas analysis can be done to update acid base status. Will follow along closely. Follow up as he hopefully tries to go through renal recovery. Job#: [id number] MELENDEZ
[2017-04-15] MEDS ORDERED: PANTOPRAZOLE INJ 40 MG in SODIUM CHLORIDE 0.9% 50ML 50 ML IV SCH ×7 (12:45→13:00)
--- NOTE | 2017-04-15 14:41 | Diagnostic Imaging Report ---
PROCEDURE: A single AP view of the chest. COMPARISON: Portable chest 04/15/2017. INDICATIONS: CHEST X RAY LINE PLACEMENT FINDINGS: Lines/tubes: Right internal jugular temporary triple-lumen central venous catheter with tip projecting over the expected region of the superior vena cava. Right internal jugular temporary double lumen central venous hemodialysis catheter with tip projecting over the expected region of the right atrium. Lungs: The lungs are well inflated and clear. There is no evidence of pneumonia or pulmonary edema. Pleura: Small bilateral pleural effusions. No pneumothorax. Heart and mediastinum: The heart and the mediastinum are unremarkable. Bones: No acute bony abnormality. Degenerative changes of the thoracic spine. IMPRESSION: Small bilateral pleural effusions. Dictated by: Сергей Root M.D. on 04/15/2017 at 14:48 Electronically approved by: Сергей Root M.D. on 04/15/2017 at 14:48
--- NOTE | 2017-04-15 14:44 | Diagnostic Imaging Report ---
PROCEDURE:NON-TUNNELLED CVC CATH PLACMNT COMPARISON:None. INDICATIONS: Dialysis Access COMPLICATIONS: None. MEDICATIONS: None. BLOOD LOSS: 2.0 cc. PROCEDURE: The procedure was performed at the bedside in the intensive care unit. The right neck was prepped and draped in usual sterile fashion. 1% lidocaine was infused into the subcutaneous tissues for local anesthesia. Utilizing direct sonographic guidance, a 21 gauge needle was advanced into the right internal jugular vein. A 0.018 inch wire was advanced centrally. An access sheath was placed over the wire to secure the vascular access. The wire was upsized to a 0.035 inch wire. The wire was advanced into the inferior vena cava for stability. Serial dilations were performed over the wire. A temporary double lumen central venous hemodialysis catheter was advanced over the wire. The wire was removed. The catheter ports demonstrate proper function with aspiration and flushing of saline. The catheter ports were flushed with sterile saline. The catheter was secured to the skin with 3-0 Ethilon suture. A sterile dressing was applied. There no immediate complications. The patient tolerated the procedure well. The patient remained in the intensive care unit in unchanged condition. CONCLUSION: Successful placement of a right internal jugular temporary central venous hemodialysis catheter utilizing ultrasound guidance. Dictated by: Сергей Root M.D. on 04/15/2017 at 14:52 Electronically approved by: Сергей Root M.D. on 04/15/2017 at 14:52
--- NOTE | 2017-04-15 14:48 | Diagnostic Imaging Report ---
PROCEDURE:ULTRASOUND GUIDANCE FOR VASCULAR ACCESS COMPARISON:None. INDICATIONS:Dialysis Access FINDINGS:Right internal jugular vein is noted to be patent. Ultrasound guidance was utilized for access for central venous hemodialysis catheter placement. CONCLUSION:Patent right internal jugular vein. Successful ultrasound guidance for central venous hemodialysis catheter placement. Dictated by: Сергей Root M.D. on 04/15/2017 at 14:56 Electronically approved by: Сергей Root M.D. on 04/15/2017 at 14:56
[2017-04-15] MEDS ORDERED: SODIUM CHLORIDE 0.9% 250ML 250 ML ONE (16:07)
[2017-04-15] MEDS ORDERED: CENTRAL TPN FORMULA 1 BAG IV SCH (20:00)
[2017-04-15] MEDS: MIDAZOLAM HCL 25 MG in SODIUM CHLORIDE 0.9% 50ML 45 ML IV PRN (21:00)
[2017-04-15 23:44] LABS: ABG PH 7.41 (7.31-7.41)
[2017-04-16] VITALS (97 sets, daily range): BP systolic 110–144; BP diastolic 70–97
[2017-04-16] MEDS: SODIUM CHLORIDE 0.9% 250ML IRRIG IR SCH ×6 (03:45→22:45)
[2017-04-16] MEDS: MIDAZOLAM HCL 25 MG in SODIUM CHLORIDE 0.9% 50ML 45 ML IV PRN ×3 (04:45→18:33)
[2017-04-16 06:00] LABS: HEMATOCRIT 30.6 % (38.2-49.6); HEMOGLOBIN 9.1 g/dL (14.0-18.0); MEAN CORPUSCULAR HEMOGLOBIN 19.4 pg (28-32); MEAN CORPUSCULAR HGB CONC 29.7 g/dL (31-35); MEAN CORPUSCULAR VOLUME 65.4 fL (81-99); PLATELET COUNT 117 x10e3/uL (140-360); RED BLOOD COUNT 4.68 x10e6/uL (4.3-5.7); RED CELL DISTRIBUTION WIDTH 21.1 % (11.7-14.4)
[2017-04-16 06:26] LABS: ALBUMIN 1.4 g/dL (3.5-5.0); ALBUMIN/GLOBULIN RATIO 0.4 (0.8-2.0); ANION GAP 13.1 mmol/L (8-16); CALCIUM 7.5 mg/dL (8.4-10.2); CREATININE, SERUM 6.72 mg/dL (0.72-1.25); POTASSIUM 4.1 mmol/L (3.5-5.1)
[2017-04-16 06:44] LABS: PHOSPHORUS 3.8 MG/DL (2.3-4.7)
--- NOTE | 2017-04-16 06:47 | Diagnostic Imaging Report ---
EXAMINATION: CHEST SINGLE (PORTABLE) INDICATION: Pneumonia. COMPARISON: 04/15/2017 FINDINGS: TUBES and LINES: Endotracheal, NG tube, right IJ central line catheters are stable in position. LUNGS: There is near collapse of the right lung . The left lung is clear with minimal base atelectasis . PLEURA: Small right pleural effusion is suspected. HEART AND MEDIASTINUM: The cardiomediastinal silhouette is difficult to assess due to shifting of the mediastinum into the right hemithorax. BONES AND SOFT TISSUES: No acute osseous lesion. Soft tissues are unremarkable. UPPER ABDOMEN: No free air under the diaphragm. IMPRESSION: Some development of right lung atelectasis and shifting of the mediastinum to the right of midline. Small right pleural effusion is suspected. Underlying pneumonia cannot be excluded. Signed by: Dr. Hever Keller M.D. on 04/16/2017 6:43 AM
[2017-04-16 06:51] LABS: INR 0.98; PROTHROMBIN TIME 13.5 seconds (11.9-14.5)
[2017-04-16] MEDS: PANTOPRAZOL 40MG/SOD CHL 0.9% 50 ML IV SCH ×4 (07:10→18:32)
[2017-04-16] MEDS: BUMETANIDE 10 MG in SODIUM CHLORIDE 0.9% 100 ML 60 ML IV SCH ×3 (07:10→22:15)
--- NOTE | 2017-04-16 08:03 | Progress Note ---
DATE: April 16, 2017 PULMONARY MEDICINE PROGRESS NOTE SUBJECTIVE: Mr. Mai was seen and examined at bedside. He remains intubated orally. He is on ventilator. Minimal ventilation is 9 L per minute with respiratory rate 26, PEEK of 13. He is 22/470/40%/5. He is on fentanyl at 175 per hour, Versed 5 hour, D10 at 60 per hour, TPN at 50 per hour. Proton pump inhibitor IV. Patient with critical finding of significant chest x-ray, opacity, 100% collapse of the right lung with ipsilateral shifting of the mediastinum. We were able to get a good amount of secretions out. REVIEW OF SYSTEMS: No headaches, no rash. OBJECTIVE VITAL SIGNS: Afebrile, vital signs noted per electronic record. GENERAL: No acute distress. Alert and calm. HEENT: Normocephalic, atraumatic. NECK: Supple. Throat midline. LUNGS: Bilateral air entry. Multiple rhonchi throughout. CARDIOVASCULAR: S1/S2. No murmurs, rubs or gallops. ABDOMINAL EXAMINATION: Soft, nontender. EXTREMITIES: No clubbing, no cyanosis. There is 2+ edema. INTEGUMENT: No rash, no purpura. LABS: Potassium 4.2, BUN 46, creatinine 7.3. White count 20, platelets 117,000, hematocrit 31. IMPRESSIONS AND PLAN 1. Acute respiratory failure, intubated. 2. Suspected airways plug-in, high grade, on the right side, probably from mucous secretions. 3. Volvulus with perforated bowel, status post surgical resection, and ostomy creation. 4. Dysfunctional central line port, likely obstructed. 5. Protein malnutrition. 6. Septic shock, resolved. 7. Acute kidney failure, still oliguric. Will continue current treatment. Bronchoscopy recommended today, which is reasonable and will perform. After bronchoscopy, expectant for CAT scan of the lung to make sure there is no loculating fluid that could restrict the lungs. Cath flow for the catheter malfunction. Continue with the IVC filter in place. Platelets are improving and will consider in next few days if you want to keep him off heparin or if you want to give him trial of restarting. 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 IV antibiotics. Will follow along closely. Greater than 30 minutes direct care today, multiple evaluation and coordination at this time does not include procedures. Job#: [id number] CQ
[2017-04-16] MEDS ORDERED: ALTEPLASE RECOMBINANT 2 MG/2 ML VIAL IV PRN (08:15)
[2017-04-16] MEDS: FLUCONAZOLE 200 MG/100 ML 100 ML IV SCH (08:20)
[2017-04-16] MEDS: MEROPENEM 500MG 500 MG in WATER STERILE 10ML VIAL 10 ML IV SCH ×2 (08:20→17:45)
[2017-04-16] MEDS: FAMOTIDINE 20 MG/2 ML VIAL IV SCH ×2 (08:30→17:45)
--- NOTE | 2017-04-16 09:03 | Diagnostic Imaging Report ---
PROCEDURE: CHEST SINGLE (PORTABLE) COMPARISON: 04/16/2017 at 0532. INDICATIONS: PLEURAL EFFUSIONS FINDINGS: Endotracheal tube, enteric tube, right internal jugular low flow and high flow central venous catheters are unchanged in position. Interval resolution of diffuse airspace opacity in the right lung with ipsilateral mediastinal shift. Residual lower lung and perihilar opacity persists, likely subsegmental atelectasis. Small bilateral pleural effusions. Left hemithorax is otherwise clear. Stable cardiomediastinal contour. No acute osseous abnormality. CONCLUSION: Interval resolution of right lung collapse and ipsilateral mediastinal shift, possibly related to mucous plugging. There is residual subsegmental atelectasis in the perihilar region and lower lobe. Small bilateral pleural effusions. Stable position of support lines and tubes as above. Dictated by: Flip Leiva M.D. on 04/16/2017 at 9:10 Electronically approved by: Flip Leiva M.D. on 04/16/2017 at 9:10
--- NOTE | 2017-04-16 09:08 | Operative Report ---
DATE OF PROCEDURE: April 16, 2017 PROCEDURE: Fiberoptic bronchoscopy. INDICATIONS: A 100% right-sided atelectasis, mucus plug. ROOM ATTENDANT: None CONSENT: Informed consent received from parents of adult who is intubated. OPERATIVE FINDINGS: Via an 8 endotracheal tube, the fiberoptic bronchoscope was inserted into the bilateral airways. Patient with large amount of thick secretions already noted obstructing the right mainstem bronchus. Secretions were immediately attempted for suctioning, although it was noted they were quite thick and difficult to remove. After repetitive efforts, we were able to clear the right side. All airways on the right were filled with secretions. After washes, there was mild re-pooling of secretions. Then we went to the left side, which was also noted to have a mild amount of thick secretions, but these were suctioned more readily without obstruction in the channel. Washes were done there, and there was no re-pooling of airway secretions on the left side. Patient was noted with hemostasis and no bleeding. We removed the scope, and allowed the patient to recover here in the ICU. COMPLICATIONS: None. ESTIMATED BLOOD LOSS: None. IMPRESSION: Large thick mucus plug, right side mainly. Status post bronchoscopic washes of secretions. Job#: [id number] MARTIN
[2017-04-16] MEDS ORDERED: SODIUM CHLORIDE 0.9% 250ML 250 ML ONE (10:06)
[2017-04-16] MEDS: FENTANYL CITRATE INJ 2,000 MCG in SODIUM CHLORIDE 0.9% 250ML 210 ML IV SCH ×2 (12:40→18:33)
[2017-04-16] MEDS ORDERED: CENTRAL TPN FORMULA 1 BAG IV SCH (12:43)
[2017-04-16] MEDS: DEXTROSE 10% 1,000 ML IV SCH ×2 (13:40→18:32)
[2017-04-17] VITALS (90 sets, daily range): BP systolic 121–166; BP diastolic 83–102
[2017-04-17] MEDS: PANTOPRAZOL 40MG/SOD CHL 0.9% 50 ML IV SCH ×6 (00:30→22:14)
[2017-04-17] MEDS: DEXTROSE 10% 1,000 ML IV SCH (03:30)
[2017-04-17] MEDS: SODIUM CHLORIDE 0.9% 250ML IRRIG IR SCH ×6 (03:35→23:14)
[2017-04-17] MEDS: FENTANYL CITRATE INJ 2,000 MCG in SODIUM CHLORIDE 0.9% 250ML 210 ML IV SCH ×2 (05:55→23:35)
[2017-04-17 05:57] LABS: BASOPHILS # (AUTO) 0.1 (0.0-0.1); BASOPHILS % 0.3 % (0.0-1.0); EOSINOPHILS # (AUTO) 0.5 (0.0-0.4); HEMATOCRIT 30.9 % (38.2-49.6); HEMOGLOBIN 9.1 g/dL (14.0-18.0); LYMPHOCYTES # (AUTO) 0.9 (1.0-3.2); LYMPHOCYTES % 3.7 % (18.0-39.1); MEAN CORPUSCULAR HEMOGLOBIN 19.9 pg (28-32); MEAN CORPUSCULAR HGB CONC 29.4 g/dL (31-35); MEAN CORPUSCULAR VOLUME 67.5 fL (81-99); MONOCYTES # (AUTO) 2.9 (0.2-0.8); MONOCYTES % 11.6 % (4.4-11.3); NEUTROPHILS # (AUTO) 19.8 (2.1-6.9); NEUTROPHILS % 77.9 % (38.7-80.0); PLATELET COUNT 157 x10e3/uL (140-360); RED BLOOD COUNT 4.58 x10e6/uL (4.3-5.7); RED CELL DISTRIBUTION WIDTH 21.3 % (11.7-14.4)
[2017-04-17 06:24] LABS: ALBUMIN 1.6 g/dL (3.5-5.0); ALBUMIN/GLOBULIN RATIO 0.4 (0.8-2.0); ANION GAP 11.9 mmol/L (8-16); CALCIUM 7.6 mg/dL (8.4-10.2); CREATININE, SERUM 6.4 mg/dL (0.72-1.25); MAGNESIUM 2.2 MG/DL (1.3-2.1); PHOSPHORUS 3.8 MG/DL (2.3-4.7); POTASSIUM 3.9 mmol/L (3.5-5.1)
--- NOTE | 2017-04-17 06:25 | Diagnostic Imaging Report ---
EXAMINATION: CHEST SINGLE (PORTABLE) INDICATION: Follow-up pneumonia. COMPARISON: 04/16/2017 FINDINGS: TUBES and LINES: Endotracheal, nasogastric tube and right IJ central line catheters are stable in good position. LUNGS: Lungs are not well inflated. Bibasilar airspace disease and resolution of right upper lobe airspace PLEURA: Small bilateral pleural effusions HEART AND MEDIASTINUM: The cardiomediastinal silhouette is unremarkable. There are atherosclerotic calcifications within the aorta. BONES AND SOFT TISSUES: No acute osseous lesion. Soft tissues are unremarkable. UPPER ABDOMEN: No free air under the diaphragm. IMPRESSION: 1. Findings are compatible with bibasilar atelectasis, fluid overload and small bilateral pleural effusions. 2. Resolution of right upper lobe airspace disease Signed by: Dr. Hever Keller M.D. on 04/17/2017 6:21 AM
[2017-04-17 07:59] LABS: EOSINOPHILS % (MANUAL) 3 % (0-7); HYPOCHROMASIA SLIGHT; LYMPHOCYTES % (MANUAL) 2 % (19-48); MONOCYTES % (MANUAL) 17 % (3.4-9.0); NEUTROPHILS % (MANUAL) 77 % (40-74); PLATELET ESTIMATE SLIGHTLY DECREASED; PLATELET MORPHOLOGY COMMENT NORMAL; RBC MORPHOLOGY COMMENT NORMAL
[2017-04-17] MEDS: FLUCONAZOLE 200 MG/100 ML 100 ML IV SCH (09:43)
[2017-04-17] MEDS: MEROPENEM 500MG 500 MG in WATER STERILE 10ML VIAL 10 ML IV SCH ×2 (09:44→17:50)
[2017-04-17] MEDS: FAMOTIDINE 20 MG/2 ML VIAL IV SCH ×2 (09:44→19:26)
--- NOTE | 2017-04-17 13:50 | Progress Note ---
DATE: April 17, 2017 PULMONARY MEDICINE PROGRESS NOTE SUBJECTIVE: Mr. Mai was seen and examined at bedside. He continues to have critical illness. He is intubated. He is on a ventilator. GI output is only about 250 mL over 12 hours. He is on fentanyl 50 mcg per hour, still in peak sedation. Had 3.4 L in and 3.6 L out. Dialysis is to start, although they may be having some line malfunction. TPN 50 per hour. REVIEW OF SYSTEMS: No headaches, no rash, although limited because he is intubated. OBJECTIVE VITAL SIGNS: Afebrile. Vital signs noted per electronic record. GENERAL: Mostly sedated while on ventilator. Mostly synchronous to the machine. HEENT: Normocephalic, atraumatic. NECK: Supple. Throat midline. LUNGS: Bilateral air entry. A few rhonchi bilaterally. CARDIOVASCULAR: S1 and S2. No murmurs, rubs or gallops. ABDOMEN: Soft, nontender. EXTREMITIES: No clubbing, no cyanosis. There is still some 2+ edema. INTEGUMENT: No rash, no purpura. LABS: 25 white count, 31 hematocrit, 157 platelets, 39 BUN, creatinine 6.4. AST came down to 60, and ALT came down to 542. IMPRESSION AND PLAN 1. Acute respiratory failure, intubated. 2. Shock, resolved. 3. Acute kidney failure, probably anuric. 4. Acute liver failure, resolved. 5. Encephalopathy, likely from medicines, toxic/metabolic. 6. Postoperative state, status post wide gastrointestinal surgery for volvulus. Dialysis today likely. Sedation holiday after. Will also want a CT scan of the lungs. Will follow the white count and make sure it does not go higher. Continue aggressive IV antibiotics. Patient remains in critical condition. Job#: [id number]
[2017-04-17] MEDS: MIDAZOLAM HCL 25 MG in SODIUM CHLORIDE 0.9% 50ML 45 ML IV PRN ×2 (15:00→22:15)
[2017-04-17] MEDS: VANCOMYCIN 1GM/NS 250 ML 250 ML IV SCH (16:00)
[2017-04-17] MEDS ORDERED: MANNITOL 25% 12.5GM/50ML 50 ML IV NR (17:45)
[2017-04-17 18:43] LABS: PHOSPHORUS 3.5 MG/DL (2.3-4.7)
[2017-04-17] MEDS ORDERED: CENTRAL TPN FORMULA 1 BAG IV SCH (20:00)
[2017-04-17] MEDS: FUROSEMIDE INJ 400 MG in MANNITOL 20% 500ML 500 ML IV SCH (21:00)
[2017-04-18] VITALS (73 sets, daily range): BP systolic 100–160; BP diastolic 56–94
[2017-04-18] MEDS: MIDAZOLAM HCL 25 MG in SODIUM CHLORIDE 0.9% 50ML 45 ML IV PRN ×2 (02:22→07:53)
[2017-04-18] MEDS: PANTOPRAZOL 40MG/SOD CHL 0.9% 50 ML IV SCH ×4 (03:54→20:20)
[2017-04-18] MEDS: SODIUM CHLORIDE 0.9% 250ML IRRIG IR SCH ×6 (03:55→23:27)
--- NOTE | 2017-04-18 04:04 | Diagnostic Imaging Report ---
EXAM: CT Chest WITHOUT contrast 04/18/2017 8:27 PM INDICATION: Pleural effusions. COMPARISON: Chest x-ray on 04/17/2017 TECHNIQUE: Chest was scanned utilizing a multidetector helical scanner from the lung apex through the level of the adrenal glands without administration of IV contrast. Absence of intravenous contrast decreases sensitivity for detection of lymphadenopathy and vascular pathology. Coronal and sagittal reformations were obtained. Routine protocol was performed. IV CONTRAST: None RADIATION DOSE: Total DLP: 603.28 mGy*cm Estimated effective dose: (DLP x 0.014 x size factor) mSv COMPLICATIONS: None FINDINGS: LINES/ TUBES: Right IJ dual-lumen and single-lumen catheters as well as NG tube are in place LUNGS AND AIRWAYS: Multiple areas of confluent airspace opacity and groundglass nodularity compatible with multifocal pneumonia/infection Airways are normal. PLEURA: Bilateral pleural effusions right greater than left HEART AND MEDIASTINUM: The thyroid gland is normal. No mediastinal, hilar or axillary lymphadenopathy. The heart is normal in size.. There is no pericardial effusion. UPPER ABDOMEN: Upper abdominal imaging is limited due to beam hardening artifact. Surgical clips related to cholecystectomy are present. Otherwise, limited evaluation. There is evidence of air in the nondependent portion of the upper abdomen. BONES: There are degenerative changes in the thoracic spine. SOFT TISSUES: Unremarkable. IMPRESSION: 1. Limited visualization of the abdomen. 2. Multifocal pneumonia and bilateral pleural effusions. 3. Air in the nondependent portion of the abdomen may represent partially visualized bowel or free intraperitoneal air. Signed by: Dr. Hever Keller M.D. on 04/18/2017 4:01 AM
[2017-04-18 06:11] LABS: BASOPHILS % 0.1 % (0.0-1.0); EOSINOPHILS # (AUTO) 0.5 (0.0-0.4); EOSINOPHILS % 2.2 % (0.0-6.0); HEMATOCRIT 27.8 % (38.2-49.6); HEMOGLOBIN 8.2 g/dL (14.0-18.0); LYMPHOCYTES # (AUTO) 0.7 (1.0-3.2); LYMPHOCYTES % 3.3 % (18.0-39.1); MEAN CORPUSCULAR HEMOGLOBIN 19.5 pg (28-32); MEAN CORPUSCULAR HGB CONC 29.5 g/dL (31-35); MEAN CORPUSCULAR VOLUME 66.2 fL (81-99); MONOCYTES # (AUTO) 2.1 (0.2-0.8); MONOCYTES % 10.2 % (4.4-11.3); NEUTROPHILS # (AUTO) 16.6 (2.1-6.9); NEUTROPHILS % 79.6 % (38.7-80.0); PLATELET COUNT 187 x10e3/uL (140-360); RED CELL DISTRIBUTION WIDTH 22.1 % (11.7-14.4)
--- NOTE | 2017-04-18 06:22 | Diagnostic Imaging Report ---
EXAMINATION: CHEST SINGLE (PORTABLE) INDICATION: Respiratory failure COMPARISON: 04/17/2017 FINDINGS: TUBES and LINES: Nasogastric tube and right IJ central line catheters are stable in good position. Endotracheal tube tip is just at the level of the thoracic inlet 7 cm above the miguelina. Repositioning is recommended LUNGS: Lungs are not well inflated. Lungs are clear. Bibasilar airspace disease and resolution of right upper lobe airspace PLEURA: Small bilateral pleural effusions HEART AND MEDIASTINUM: The cardiomediastinal silhouette is unremarkable. There are atherosclerotic calcifications within the aorta. BONES AND SOFT TISSUES: No acute osseous lesion. Soft tissues are unremarkable. UPPER ABDOMEN: No free air under the diaphragm. IMPRESSION: 1. Findings are compatible with bibasilar atelectasis, fluid overload and small bilateral pleural effusions. 2. Resolution of right upper lobe airspace disease 3. Endotracheal tube is slightly high. Repositioning advised Signed by: Dr. Hever Keller M.D. on 04/18/2017 6:18 AM
[2017-04-18 06:30] LABS: ALBUMIN 1.5 g/dL (3.5-5.0); ALBUMIN/GLOBULIN RATIO 0.4 (0.8-2.0); ANION GAP 12.2 mmol/L (8-16); CALCIUM 7.7 mg/dL (8.4-10.2); CREATININE, SERUM 6.88 mg/dL (0.72-1.25); POTASSIUM 4.2 mmol/L (3.5-5.1)
[2017-04-18 07:33] LABS: ANISOCYTOSIS SLIGHT; EOSINOPHILS % (MANUAL) 2 % (0-7); LYMPHOCYTES % (MANUAL) 3 % (19-48); MONOCYTES % (MANUAL) 5 % (3.4-9.0); NEUTROPHILS % (MANUAL) 90 % (40-74); PLATELET ESTIMATE SLIGHTLY DECREASED; PLATELET MORPHOLOGY COMMENT NORMAL; RBC MORPHOLOGY COMMENT NORMAL
[2017-04-18] MEDS: MEROPENEM 500MG 500 MG in WATER STERILE 10ML VIAL 10 ML IV SCH ×2 (10:17→18:08)
[2017-04-18] MEDS: FLUCONAZOLE 200 MG/100 ML 100 ML IV SCH (10:17)
[2017-04-18] MEDS: FAMOTIDINE 20 MG/2 ML VIAL IV SCH ×2 (10:17→18:08)
[2017-04-18] MEDS ORDERED: MEROPENEM 500 MG VIAL ONE (10:19)
[2017-04-18] MEDS ORDERED: SODIUM CHLORIDE 0.9% 250ML 500 ML IV PRN (10:30)
[2017-04-18] MEDS ORDERED: HEPARIN SOD (PORCINE) 1000 UNIT/ML SDV IV PRN (10:30)
[2017-04-18] MEDS ORDERED: AZITHROMYCIN 500MG/NS 250 ML 250 ML IV SCH (11:30)
[2017-04-18] MEDS ORDERED: SODIUM CHLORIDE 0.9% 250ML 250 ML ONE (11:42)
[2017-04-18] MEDS: FENTANYL CITRATE INJ 2,000 MCG in SODIUM CHLORIDE 0.9% 250ML 210 ML IV SCH ×2 (13:15→20:20)
[2017-04-18 13:49] LABS: ABG PH 7.38 (7.31-7.41)
[2017-04-18 13:50] LABS: ABG HCO3 31 mmol/L (23-28); ABG PCO2 51 mmHg (41-51); ABG PO2 120 mmHg (80-105)
[2017-04-18] MEDS: FENTANYL CITRATE/PF 100MCG/2 ML INJ IV PRN (14:39)
[2017-04-18] MEDS: DEXTROSE 10% 1,000 ML IV SCH (15:40)
[2017-04-18] MEDS: FUROSEMIDE INJ 400 MG in MANNITOL 20% 500ML 500 ML IV SCH (16:02)
--- NOTE | 2017-04-18 16:15 | Progress Note ---
DATE: April 18, 2017 PULMONARY MEDICINE PROGRESS NOTE SUBJECTIVE: Mr. Mai was seen and examined at bedside. He remains intubated orally. CT chest did not show any large effusion, only small effusions and small pneumonitis. He is on TPN at 50 mL per hour. He did have a weaning trial of sedation yesterday. He was pulling at his endotracheal tube although he was resedated, as the goal was not to extubate. NG tube 600 mL recorded out. FEDE 20 mL. Recorded urine output 70 mL. Had 2.7 L in and 3.7 L out. REVIEW OF SYSTEMS: Cannot get as he is intubated. OBJECTIVE VITAL SIGNS: Afebrile. Vital signs noted per electronic record. GENERAL: In no acute distress, alert and calm. HEENT: Normocephalic, atraumatic. NECK: Supple. Throat midline. LUNGS: Bilateral air entry. Decreased breath sounds. CARDIOVASCULAR: S1 and S2. No murmurs, rubs or gallops. ABDOMEN: Soft, nontender. EXTREMITIES: No clubbing, no cyanosis. There is 2+ edema. INTEGUMENT: No rash, no purpura. LABS: 21 white count, 28 hematocrit, 187 platelets, 6.8 creatinine, 47 BUN. AST 46, ALT 355. IMPRESSION AND PLAN 1. Acute respiratory failure, intubated. 2. Acute renal failure, oliguric. 3. Shock, septic. This has resolved. 4. Encephalopathy, toxic, metabolic and medications. 5. Acute liver failure, resolving. 6. Postoperative state, status post volvulus with ischemic bowel and perforation. 7. Secondary peritonitis. Continue care at this time. Will start daily weaning. Wean sedation and check how he does on ventilator weaning. Patient will continue proton pump inhibitor due to recent ulcer. Patient furthermore will have continued DVT mechanical prophylaxis. The patient has an IVC filter that was placed. Continue IV antibiotics. TPN for now until surgery is ready to start tube feeds. Hemodialysis was already done today with 1 liter off. Follow up closely. Patient remains in critical condition. Follow up with urine output and hopefully there can be some recovery, but the urine output has actually gone down recently. We will follow along closely. [place]ila exchange was done. Job#: [id number]
[2017-04-18] MEDS ORDERED: CENTRAL TPN FORMULA 1 BAG IV SCH (20:00)
[2017-04-18] MEDS: PROPOFOL IV EMULSION 10MG/ML 100 ML IV PRN (20:21)
[2017-04-18] MEDS: ACETAMINOPHEN 325 MG TAB PO PRN (23:40)
[2017-04-19] VITALS (25 sets, daily range): BP systolic 95–110; BP diastolic 54–62
[2017-04-19 00:18] LABS: ABG HCO3 31 mmol/L (23-28); ABG PCO2 51 mmHg (41-51); ABG PO2 64 mmHg (80-105)
[2017-04-19] MEDS: PANTOPRAZOL 40MG/SOD CHL 0.9% 50 ML IV SCH (00:56)
[2017-04-19] MEDS: PROPOFOL IV EMULSION 10MG/ML 100 ML IV PRN ×3 (02:03→22:02)
[2017-04-19] MEDS: SODIUM CHLORIDE 0.9% 250ML IRRIG IR SCH ×5 (03:40→21:54)
[2017-04-19 05:48] LABS: ALBUMIN 1.4 g/dL (3.5-5.0); ALBUMIN/GLOBULIN RATIO 0.4 (0.8-2.0); ANION GAP 12.6 mmol/L (8-16); CALCIUM 7.5 mg/dL (8.4-10.2); CREATININE, SERUM 6.92 mg/dL (0.72-1.25); MAGNESIUM 2.3 MG/DL (1.3-2.1); PHOSPHORUS 5.9 MG/DL (2.3-4.7); POTASSIUM 4.6 mmol/L (3.5-5.1)
[2017-04-19 06:22] LABS: BASOPHILS # (AUTO) 0.1 (0.0-0.1); BASOPHILS % 0.2 % (0.0-1.0); EOSINOPHILS # (AUTO) 0.3 (0.0-0.4); EOSINOPHILS % 1.1 % (0.0-6.0); HEMATOCRIT 24.1 % (38.2-49.6); LYMPHOCYTES # (AUTO) 0.8 (1.0-3.2); LYMPHOCYTES % 2.9 % (18.0-39.1); MEAN CORPUSCULAR HEMOGLOBIN 19.8 pg (28-32); MEAN CORPUSCULAR VOLUME 68.3 fL (81-99); MONOCYTES # (AUTO) 2.5 (0.2-0.8); MONOCYTES % 9.6 % (4.4-11.3); NEUTROPHILS # (AUTO) 21.8 (2.1-6.9); NEUTROPHILS % 83.3 % (38.7-80.0); PLATELET COUNT 231 x10e3/uL (140-360); RED BLOOD COUNT 3.53 x10e6/uL (4.3-5.7); RED CELL DISTRIBUTION WIDTH 22.5 % (11.7-14.4)
--- NOTE | 2017-04-19 07:07 | Diagnostic Imaging Report ---
SINGLE VIEW CHEST, April 19, 2017 Clinical History: Respiratory failure. Technique: Single, portable AP view chest. Comparison: April 18, 2017 Findings: See impression. Impression: 1. The endotracheal tube tip about 5.5 cm from the miguelina. No change in right internal jugular central venous catheters. 2. Stable low lung volumes with bilateral lower lobe airspace opacities (right greater than left) consistent with atelectasis and/or pneumonia. 3. Stable cardiomediastinal silhouette with normal heart size and central vascular congestion. 4. No interval change relative to April 18. This report was generated with voice-recognition technology. Errors in cross tie cutter can occur. Please interpret accordingly and contact a radiologist if there are any questions regarding the report. Signed by: Dr. Juan Mcdaniel M.D. on 04/19/2017 7:04 AM
[2017-04-19] MEDS ORDERED: SODIUM CHLORIDE 0.9% 250ML 250 ML IV ONE (07:45)
[2017-04-19] MEDS: DEXTROSE 10% 1,000 ML IV SCH (08:20)
[2017-04-19] MEDS: MEROPENEM 500MG 500 MG in WATER STERILE 10ML VIAL 10 ML IV SCH ×2 (12:30→18:37)
--- NOTE | 2017-04-19 15:12 | Progress Note ---
DATE: April 19, 2017 PULMONARY MEDICINE PROGRESS NOTE SUBJECTIVE: Mr. Mai was seen and examined at bedside. He continues to have significant encephalopathy. We had difficulty weaning him off sedation because he has very deep inspiratory breathing cycles and almost starts and stops his breathing. However, when we do get sedation done, we do know his pupils are round, reactive and symmetric and 2 to 3 mm. He has doll's eyes. He has good coughing that we note. Of note, his left arm is a little bit warmer now. It is swollen and erythematous as well. Other issues include that he remains with very minimal urine output. Low secretions in the endotracheal tube noted. TPN is at 50 ongoing. Propofol is 40 per hour ongoing. Fentanyl is 150 ongoing. REVIEW OF SYSTEMS: Cannot get as he is altered. OBJECTIVE VITAL SIGNS: Afebrile. Vital signs noted per electronic record. GENERAL: In no acute distress, but he has comatose behavior. HEENT: Normocephalic, atraumatic. NECK: Supple. Throat midline. LUNGS: Bilateral air entry. Rare rhonchi at the bases. CARDIOVASCULAR: S1 and S2. No murmurs, rubs or gallops. ABDOMEN: Soft, nontender. EXTREMITIES: No clubbing, no cyanosis. There is 2 to 3+ edema. INTEGUMENT: No rash, no purpura. LABS: 4.2 potassium, 49 BUN, creatinine 6.9, 26 white count, 24 hematocrit. IMPRESSION AND PLAN 1. Acute respiratory failure, intubated. 2. Encephalopathy, multifactorial, toxic metabolic plus/minus medications plus/minus other. 3. Shock, resolved. 4. Acute kidney failure, oliguric. 5. Postoperative state, status post resection, partial, of bowel for volvulus with ischemic gut and perforation, 2 cm per pathology report. 6. Liver failure, improved/resolving. Change proton pump inhibitor to intermittent pushes. Stop Pepcid. Ultrasound of the arm given the increasing left edema. Recheck lactic acid. If the surgeon ever needs to do another CAT scan, we will add a CT of the head but, otherwise, commit to continue neurologic exams. Continue sedation to lowest dose needed. Will follow along closely. Job#: [id number]
--- NOTE | 2017-04-19 15:13 | Diagnostic Imaging Report ---
Inferior vena cava filter placement April 14, 2017 Pre-Procedure Diagnosis: DVT; thrombocytopenia. Post-procedure Diagnosis:DVT; thrombocytopenia. Distribution Driver: Monica Mcdaniel Data Collection Technician: None Sedation: None. Heart rate and oxygen saturation were monitored in real-time. Blood pressure was measured in 5 minute increments. 2% lidocaine was used for local anesthesia. Radiation Dose:1743.2 cGycm2 (Dose Area Product) Fluoroscopy time:0.7 minutes Estimate blood loss: <5 mL Blood administered: None Complications: None Implants/Grafts: None Specimen: None Procedure: Informed consent was obtained and the patient placed supine. A timeout was performed. The right groin was prepped and draped in standard sterile fashion. Using real-time ultrasound guidance an 18-gauge single wall needle was used to access the right common femoral vein. The needle was exchanged for the deployment sheath and a venogram performed (see findings below). A Bard Brielle retrievable inferior vena cava filter was placed with the retrieval focus at the level of the L2 pedicle. There was less than 15 degrees filter tilt. Confirmation venogram was performed after placement and the catheter removed without complication. Findings: Normal inferior vena cava. Impression: Successful retrievable inferior vena cava filter placement (Bard Brielle). This report was generated with voice-recognition technology. Errors in house moving supervisor can occur. Please interpret accordingly and contact a radiologist if there are any questions regarding the report. Signed by: Dr. Juan Mcdaniel M.D. on 04/15/2017 3:07 PM
[2017-04-19] MEDS: PANTOPRAZOLE 40 MG 10ML VIAL IV SCH (18:37)
[2017-04-19] MEDS: VANCOMYCIN 1GM/NS 250 ML 250 ML IV SCH (18:38)
[2017-04-19] MEDS ORDERED: CENTRAL TPN FORMULA 1 BAG IV SCH (20:00)
[2017-04-19] MEDS: MICAFUNGIN SODIUM 100 ML IV SCH (21:00)
[2017-04-19] MEDS ORDERED: MYCAFUNGIN SODIUM 100 MG/100 ML BAG IV SCH (21:00)
[2017-04-20] VITALS (46 sets, daily range): BP systolic 109–152; BP diastolic 74–118
[2017-04-20] MEDS: SODIUM CHLORIDE 0.9% 250ML IRRIG IR SCH ×7 (00:43→23:15)
[2017-04-20] MEDS: PROPOFOL IV EMULSION 10MG/ML 100 ML IV PRN ×4 (01:50→21:45)
--- NOTE | 2017-04-20 04:24 | Diagnostic Imaging Report ---
EXAMINATION: CHEST SINGLE (PORTABLE) INDICATION: Respiratory failure COMPARISON: 04/19/2017 FINDINGS: TUBES and LINES: Endotracheal, NG tube and right IJ central line catheters in good position LUNGS: Lungs are not well inflated. Improving bibasilar atelectasis and central vascular congestion. Improving interlobular septi thickening. More confluent opacity in the right upper lobe. PLEURA: No pleural effusion or pneumothorax. HEART AND MEDIASTINUM: The cardiomediastinal silhouette is unremarkable. BONES AND SOFT TISSUES: No acute osseous lesion. Soft tissues are unremarkable. UPPER ABDOMEN: No free air under the diaphragm. IMPRESSION: Improving pulmonary edema and atelectasis. Confluent right upper lobe opacity may represent developing infection. Signed by: Dr. Hever Keller M.D. on 04/20/2017 4:21 AM
[2017-04-20 05:42] LABS: BASOPHILS # (AUTO) 0.1 (0.0-0.1); BASOPHILS % 0.2 % (0.0-1.0); EOSINOPHILS # (AUTO) 0.4 (0.0-0.4); EOSINOPHILS % 1.5 % (0.0-6.0); HEMATOCRIT 30.9 % (38.2-49.6); HEMOGLOBIN 8.9 g/dL (14.0-18.0); LYMPHOCYTES # (AUTO) 0.9 (1.0-3.2); LYMPHOCYTES % 3.2 % (18.0-39.1); MEAN CORPUSCULAR HEMOGLOBIN 20.8 pg (28-32); MEAN CORPUSCULAR HGB CONC 28.8 g/dL (31-35); MEAN CORPUSCULAR VOLUME 72.4 fL (81-99); MONOCYTES # (AUTO) 3.1 (0.2-0.8); MONOCYTES % 11.5 % (4.4-11.3); NEUTROPHILS # (AUTO) 21.5 (2.1-6.9); NEUTROPHILS % 80.5 % (38.7-80.0); PLATELET COUNT 292 x10e3/uL (140-360); RED BLOOD COUNT 4.27 x10e6/uL (4.3-5.7); RED CELL DISTRIBUTION WIDTH 23.9 % (11.7-14.4)
[2017-04-20 06:01] LABS: ANION GAP 15.3 mmol/L (8-16); CREATININE, SERUM 6.97 mg/dL (0.72-1.25); MAGNESIUM 2.4 MG/DL (1.3-2.1); POTASSIUM 4.3 mmol/L (3.5-5.1)
[2017-04-20 11:57] LABS: LYMPHOCYTES % (MANUAL) 2 % (19-48); MONOCYTES % (MANUAL) 9 % (3.4-9.0); MYELOCYTES % (MANUAL) 1 % (0-0); NEUTROPHILS % (MANUAL) 88 % (40-74); PLATELET ESTIMATE ADEQUATE; PLATELET MORPHOLOGY COMMENT NORMAL
[2017-04-20 11:58] LABS: RBC MORPHOLOGY COMMENT ABNORMAL
[2017-04-20 12:00] LABS: HYPOCHROMASIA MODERATE
[2017-04-20 12:07] LABS: ELLIPTOCYTE, RBC MODERATE
[2017-04-20 12:09] LABS: ANISOCYTOSIS MODERATE; BURR CELLS SLIGHT; OVALOCYTES FEW; POIKILOCYTOSIS MARKED
[2017-04-20] MEDS: FENTANYL CITRATE INJ 2,000 MCG in SODIUM CHLORIDE 0.9% 250ML 210 ML IV SCH (13:15)
[2017-04-20] MEDS: PANTOPRAZOLE 40 MG 10ML VIAL IV SCH ×2 (13:52→18:12)
[2017-04-20] MEDS: MEROPENEM 500MG 500 MG in WATER STERILE 10ML VIAL 10 ML IV SCH ×2 (13:52→18:12)
[2017-04-20] MEDS ORDERED: VANCOMYCIN 500MG/NS 0.9% 100ML 100 ML IV SCH (14:30)
--- NOTE | 2017-04-20 15:18 | Progress Note ---
DATE: April 20, 2017 PULMONARY MEDICINE PROGRESS NOTE SUBJECTIVE: Mr. Mai was seen and examined at the bedside. He continues to have intubated state. We have been weaning him due to high work of breathing overdrive. He goes back on sedation with propofol 40 mcg and additional fentanyl. Hemodialysis today with 4 L and negative output, although this is very . He remains intubated on the ventilator. Chest x-ray continues to look better over the last overload appearance and more wide open lungs. He was also found to have a cephalic vein thrombosis. There was some fluid extracted upon pressure by nursing yesterday. The arm does look better today. REVIEW OF SYSTEMS: Cannot get as he is not talking. OBJECTIVE VITALS: Afebrile. Vital signs per record. GENERAL: No distress. He is alert and calm. Sometimes eye opens to noxious stimuli. HEENT: Normocephalic and atraumatic. NECK: Supple. Throat midline. LUNGS: Bilateral air entry. Mostly clear. CARDIOVASCULAR: S1 and S2. No murmurs, rubs or gallops. ABDOMEN: Soft and nontender and postoperative. EXTREMITIES: No clubbing. No cyanosis. There is 2+ edema. INTEGUMENT: No rash. No purpura. LABS: BUN 51, creatinine 6.9. White count 27, hematocrit 31 and platelets 292,000. IMPRESSION AND PLAN 1. Acute respiratory failure, intubated. 2. Acute kidney failure: Anuric. 3. Shock, septic: This has resolved. 4. Acute renal failure, resolved. 5. Encephalopathy with difficulty evaluating and remains on sedation. 6. Admit for volvulus and necrotic gut with perforation. 7. Treat for peritonitis. 8. Left cephalic vein superficial vein thrombosis. Continue to keep the arm elevated. Follow up as it gets better and has. Continue antibiotics. Keep ventilator. At this point, will continue serial neuro exams. Will consider CT of head if needed. Follow up with white count, and hopefully it gets better. Greater than 30 minutes direct care and multiple interventions. Job#: [id number] MARTIN
[2017-04-20] MEDS: VANCOMYCIN 500MG/NS 0.9% 100ML 100 ML IV SCH (17:58)
[2017-04-20] MEDS ORDERED: CENTRAL TPN FORMULA 1 BAG IV SCH (20:00)
[2017-04-20] MEDS: MICAFUNGIN SODIUM 100 ML IV SCH (21:15)
[2017-04-20] MEDS: HEPARIN SOD (PORCINE) 5,000 UNIT/ML VIAL SC SCH (22:45)
[2017-04-21] VITALS (47 sets, daily range): BP systolic 118–157; BP diastolic 72–102
[2017-04-21] MEDS: PROPOFOL IV EMULSION 10MG/ML 100 ML IV PRN ×6 (00:55→23:40)
[2017-04-21] MEDS: SODIUM CHLORIDE 0.9% 250ML IRRIG IR SCH ×6 (03:45→23:40)
[2017-04-21 05:45] LABS: BASOPHILS # (AUTO) 0.1 (0.0-0.1); BASOPHILS % 0.2 % (0.0-1.0); EOSINOPHILS # (AUTO) 0.3 (0.0-0.4); EOSINOPHILS % 1.1 % (0.0-6.0); HEMATOCRIT 28.6 % (38.2-49.6); HEMOGLOBIN 8.4 g/dL (14.0-18.0); LYMPHOCYTES # (AUTO) 0.6 (1.0-3.2); LYMPHOCYTES % 2.4 % (18.0-39.1); MEAN CORPUSCULAR HEMOGLOBIN 21.2 pg (28-32); MEAN CORPUSCULAR HGB CONC 29.4 g/dL (31-35); MEAN CORPUSCULAR VOLUME 72.2 fL (81-99); MONOCYTES % 12.5 % (4.4-11.3); NEUTROPHILS # (AUTO) 19.7 (2.1-6.9); NEUTROPHILS % 81.5 % (38.7-80.0); PLATELET COUNT 360 x10e3/uL (140-360); RED BLOOD COUNT 3.96 x10e6/uL (4.3-5.7); RED CELL DISTRIBUTION WIDTH 24.5 % (11.7-14.4)
[2017-04-21 06:22] LABS: ANION GAP 15.4 mmol/L (8-16); CALCIUM 7.8 mg/dL (8.4-10.2); CREATININE, SERUM 7.2 mg/dL (0.72-1.25); POTASSIUM 4.4 mmol/L (3.5-5.1)
--- NOTE | 2017-04-21 06:22 | Diagnostic Imaging Report ---
EXAMINATION: CHEST SINGLE (PORTABLE) INDICATION: Respiratory failure COMPARISON: 04/20/2017 FINDINGS: TUBES and LINES: Endotracheal, nasogastric tube, and 2 right IJ central line catheters are stable. LUNGS: Lungs are not well inflated. Persistent atelectasis. Persistent right upper lobe airspace disease compatible with developing infection. PLEURA: No pleural effusion or pneumothorax. HEART AND MEDIASTINUM: The cardiomediastinal silhouette is unremarkable. BONES AND SOFT TISSUES: No acute osseous lesion. Soft tissues are unremarkable. UPPER ABDOMEN: No free air under the diaphragm. IMPRESSION: 1. Stable chest with evidence of right upper lobe patchy airspace opacity suspicious for pneumonia. 2. Tubes and lines are in good position. Signed by: Dr. Hever Keller M.D. on 04/21/2017 6:19 AM
[2017-04-21] MEDS: PANTOPRAZOLE 40 MG 10ML VIAL IV SCH ×2 (09:00→17:49)
[2017-04-21] MEDS: MEROPENEM 500MG 500 MG in WATER STERILE 10ML VIAL 10 ML IV SCH ×2 (09:24→17:49)
[2017-04-21 10:31] LABS: BAND NEUTROPHILS % (MANUAL) 14 %; EOSINOPHILS % (MANUAL) 1 % (0-7); LYMPHOCYTES % (MANUAL) 9 % (19-48); MONOCYTES % (MANUAL) 3 % (3.4-9.0); NEUTROPHILS % (MANUAL) 73 % (40-74)
[2017-04-21 10:32] LABS: PLATELET ESTIMATE ADEQUATE; PLATELET MORPHOLOGY COMMENT NORMAL; RBC MORPHOLOGY COMMENT NORMAL
[2017-04-21] MEDS: HEPARIN SOD (PORCINE) 5,000 UNIT/ML VIAL SC SCH ×2 (13:05→21:25)
[2017-04-21] MEDS: FENTANYL CITRATE INJ 2,000 MCG in SODIUM CHLORIDE 0.9% 250ML 210 ML IV SCH (13:06)
[2017-04-21] MEDS: FENTANYL CITRATE/PF 100MCG/2 ML INJ IV PRN (16:35)
[2017-04-21] MEDS: VANCOMYCIN 500MG/NS 0.9% 100ML 100 ML IV SCH (17:43)
[2017-04-21] MEDS ORDERED: CENTRAL TPN FORMULA 1 BAG IV SCH (20:00)
[2017-04-21] MEDS: MICAFUNGIN SODIUM 100 ML IV SCH (21:25)
[2017-04-22] VITALS (80 sets, daily range): BP systolic 122–194; BP diastolic 66–108
[2017-04-22] MEDS: PROPOFOL IV EMULSION 10MG/ML 100 ML IV PRN ×5 (02:45→23:23)
[2017-04-22] MEDS: SODIUM CHLORIDE 0.9% 250ML IRRIG IR SCH ×6 (03:50→22:42)
--- NOTE | 2017-04-22 06:13 | Diagnostic Imaging Report ---
EXAMINATION: CHEST SINGLE (PORTABLE) INDICATION: Intubated COMPARISON: 04/21/2017 FINDINGS: TUBES and LINES: Endotracheal, nasogastric tube, and 2 right IJ central line catheters are stable. LUNGS: Lungs are not well inflated. Persistent, now predominantly right lower lobe atelectasis. There is mild prominence of the central pulmonary vasculature, consistent with pulmonary venous congestion. PLEURA: No pleural effusion or pneumothorax. HEART AND MEDIASTINUM: The cardiomediastinal silhouette is unremarkable. BONES AND SOFT TISSUES: No acute osseous lesion. Soft tissues are unremarkable. UPPER ABDOMEN: No free air under the diaphragm. IMPRESSION: 1. Resolution of right upper lobe confluent opacity. 2. Right lower lobe atelectasis. 3. Tubes and lines are in good position. Signed by: Dr. Hever Keller M.D. on 04/22/2017 6:10 AM
[2017-04-22 06:51] LABS: BASOPHILS # (AUTO) 0.1 (0.0-0.1); BASOPHILS % 0.3 % (0.0-1.0); EOSINOPHILS # (AUTO) 0.3 (0.0-0.4); EOSINOPHILS % 1.6 % (0.0-6.0); HEMOGLOBIN 7.8 g/dL (14.0-18.0); LYMPHOCYTES # (AUTO) 0.8 (1.0-3.2); LYMPHOCYTES % 3.8 % (18.0-39.1); MEAN CORPUSCULAR VOLUME 69.9 fL (81-99); MONOCYTES # (AUTO) 3.5 (0.2-0.8); MONOCYTES % 17.6 % (4.4-11.3); NEUTROPHILS # (AUTO) 14.5 (2.1-6.9); NEUTROPHILS % 73.4 % (38.7-80.0); PLATELET COUNT 415 x10e3/uL (140-360); RED BLOOD COUNT 3.72 x10e6/uL (4.3-5.7); RED CELL DISTRIBUTION WIDTH 25.4 % (11.7-14.4)
[2017-04-22 07:08] LABS: ANION GAP 17.6 mmol/L (8-16); CALCIUM 7.9 mg/dL (8.4-10.2); CREATININE, SERUM 9.02 mg/dL (0.72-1.25); POTASSIUM 4.6 mmol/L (3.5-5.1)
--- NOTE | 2017-04-22 07:37 | Progress Note ---
DATE: Mr. Mai remains very ill in the intensive care unit. I have been meeting with the family on a daily basis. Patient remains on the ventilator and on hemodialysis. He is sedated. PHYSICAL EXAMINATION GENERAL: Sedated. VITALS: Stable and afebrile. HEENT: Nonicteric. Not pale. CHEST: Few crackles. Bilateral coarse. ABDOMEN: Soft and obese. Wound looks good at the present time. IMPRESSION 1. Sepsis and septic shock. 2. Respiratory failure. 3. Acute tubular necrosis, on hemodialysis. 4. Encephalopathy. 5. Intra-abdominal abscess. 6. Left upper extremity intravenous access infection. 7. Anemia: His white count is 24.1, hemoglobin 8.4 today. Patient remains very ill. 8. 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 Status post abdominal wall mesh with current incisional hernia, perforated gastric ulcer. Surgery was done on April 14, 2017. Continue vancomycin, meropenem and micafungin. Supportive care. [place] remains very poor. Will follow. Job#: [id number] [place]
[2017-04-22] MEDS: FENTANYL CITRATE/PF 100MCG/2 ML INJ IV PRN ×2 (08:00→19:48)
[2017-04-22 08:25] LABS: EOSINOPHILS % (MANUAL) 3 % (0-7); LYMPHOCYTES % (MANUAL) 4 % (19-48); METAMYELOCYTES % (MANUAL) 2 % (0-0); MONOCYTES % (MANUAL) 22 % (3.4-9.0); MYELOCYTES % (MANUAL) 2 % (0-0); NEUTROPHILS % (MANUAL) 66 % (40-74)
[2017-04-22 08:26] LABS: ANISOCYTOSIS MODERATE; HYPOCHROMASIA MODERATE; PLATELET ESTIMATE ADEQUATE
[2017-04-22 08:27] LABS: PLATELET MORPHOLOGY COMMENT NORMAL; RBC MORPHOLOGY COMMENT NORMAL
[2017-04-22] MEDS ORDERED: SODIUM CHLORIDE 0.9% 250ML 250 ML IV ONE (09:15)
[2017-04-22] MEDS: HEPARIN SOD (PORCINE) 5,000 UNIT/ML VIAL SC SCH ×2 (11:30→21:14)
[2017-04-22] MEDS: VANCOMYCIN 500MG/NS 0.9% 100ML 100 ML IV SCH (12:00)
[2017-04-22] MEDS: PANTOPRAZOLE 40 MG 10ML VIAL IV SCH ×2 (13:29→21:10)
[2017-04-22] MEDS: MEROPENEM 500MG 500 MG in WATER STERILE 10ML VIAL 10 ML IV SCH ×2 (13:29→20:40)
--- NOTE | 2017-04-22 14:57 | Diagnostic Imaging Report ---
Examination: CT BRAIN WITHOUT CONTRAST History:Unresponsive. Comparison studies:None Technique: Multiple axial images were obtained from the skull base to the vertex. Coronal and sagittal images reconstructed from the axial data. Intravenous contrast: None Findings: Significantly limited study. Scalp: No abnormalities. Bones: No fractures, blastic or lytic lesions. Brain sulci: Appropriate for age. Ventricles: Normal in size and configuration. No hydrocephalus. Extra-axial space: No abnormalities. Parenchyma: Cortical and subcortical based hypoattenuation in the left greater than right occipital lobes with a single punctate area (3mm) of hyperdensity, concerning hemorrhage. No masses or hemorrhage. Sellar/suprasellar region: No abnormalities. Craniocervical junction: Patent foramen magnum. No Chiari one malformation. Incidental findings: Opacified middle ear cavities and mastoid air cells bilaterally. Impression: 1. 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 2. Punctate area of hemorrhage in the left occipital lobe. 3. No midline shift or herniation. Signed by: Dr. Miriam Damian M.D. on 04/22/2017 2:53 PM
[2017-04-22] MEDS: ACETAMINOPHEN 325 MG TAB PO PRN (19:22)
[2017-04-22] MEDS: CENTRAL TPN FORMULA 1 BAG IV SCH (20:00)
[2017-04-22] MEDS: MICAFUNGIN SODIUM 100 ML IV SCH (20:41)
[2017-04-23] VITALS (84 sets, daily range): BP systolic 127–183; BP diastolic 62–111
[2017-04-23] MEDS: PROPOFOL IV EMULSION 10MG/ML 100 ML IV PRN ×8 (01:43→23:34)
[2017-04-23] MEDS: SODIUM CHLORIDE 0.9% 250ML IRRIG IR SCH ×6 (03:30→23:17)
--- NOTE | 2017-04-23 05:57 | Diagnostic Imaging Report ---
EXAM: CHEST SINGLE (PORTABLE), AP 1 view DATE: 04/23/2017 5:00 AM Time stamp on exam: 0425 hours INDICATION: Intubated COMPARISON: AP view of the chest April 22, 2017 FINDINGS: LINES/TUBES: Stable position of right internal jugular vein central line, endotracheal tube and partially visualized nasal/orogastric tube. LUNGS: Increasing atelectasis right lung base. PLEURA: Suspected bilateral layering pleural effusions. HEART AND MEDIASTINUM: Stable appearance. BONES AND SOFT TISSUES: No acute findings. IMPRESSION: Increasing right lower lobe atelectasis. Signed by: Dr. Autumn Garcia M.D. on 04/23/2017 5:54 AM
[2017-04-23 07:17] LABS: BASOPHILS # (AUTO) 0.1 (0.0-0.1); BASOPHILS % 0.4 % (0.0-1.0); EOSINOPHILS # (AUTO) 0.3 (0.0-0.4); EOSINOPHILS % 2.1 % (0.0-6.0); HEMATOCRIT 24.7 % (38.2-49.6); LYMPHOCYTES # (AUTO) 0.8 (1.0-3.2); LYMPHOCYTES % 5.8 % (18.0-39.1); MEAN CORPUSCULAR HEMOGLOBIN 21.3 pg (28-32); MEAN CORPUSCULAR HGB CONC 30.8 g/dL (31-35); MEAN CORPUSCULAR VOLUME 69.4 fL (81-99); MONOCYTES % 21.2 % (4.4-11.3); NEUTROPHILS # (AUTO) 9.5 (2.1-6.9); NEUTROPHILS % 67.7 % (38.7-80.0); PLATELET COUNT 410 x10e3/uL (140-360); RED BLOOD COUNT 3.56 x10e6/uL (4.3-5.7); RED CELL DISTRIBUTION WIDTH 25.6 % (11.7-14.4)
[2017-04-23 07:24] LABS: HEMOGLOBIN 7.6 g/dL (14.0-18.0)
[2017-04-23 07:32] LABS: CALCIUM 7.8 mg/dL (8.4-10.2); CREATININE, SERUM 8.22 mg/dL (0.72-1.25); MAGNESIUM 2.3 MG/DL (1.3-2.1)
[2017-04-23] MEDS ORDERED: SODIUM CHLORIDE 0.9% 250ML 250 ML IV ONE (08:00)
[2017-04-23 08:40] LABS: ANISOCYTOSIS MODERATE; EOSINOPHILS % (MANUAL) 2 % (0-7); HYPOCHROMASIA MODERATE; LYMPHOCYTES % (MANUAL) 4 % (19-48); MONOCYTES % (MANUAL) 13 % (3.4-9.0); MYELOCYTES % (MANUAL) 1 % (0-0); NEUTROPHILS % (MANUAL) 80 % (40-74)
[2017-04-23 08:41] LABS: PLATELET ESTIMATE SLIGHTLY INCREASED; PLATELET MORPHOLOGY COMMENT NORMAL; POIKILOCYTOSIS SLIGHT; RBC MORPHOLOGY COMMENT ABNORMAL
[2017-04-23] MEDS ORDERED: SODIUM CHLORIDE 0.9% 250ML 250 ML ONE (08:55)
[2017-04-23] MEDS: HEPARIN SOD (PORCINE) 5,000 UNIT/ML VIAL SC SCH ×2 (11:34→22:45)
--- NOTE | 2017-04-23 12:28 | Progress Note ---
DATE: April 22, 2017 PULMONARY MEDICINE PROGRESS NOTE SUBJECTIVE: Mr. Mai was seen and examined at bedside. He continues to be intubated. He is on ventilator, 18/470/40%/5. He is still over breathing the ventilator with deep tidal volumes. Minimal ventilation 15 liters a minute with respiratory rate 22. Hemodialysis of 4 liters goal expected today. Twenty five mL per hour feeds with Nepro. Propofol ongoing [address] head nonspecific hypoattenuation changes in occipital region under evaluation. REVIEW OF SYSTEMS: Cannot get as he altered. OBJECTIVE VITAL SIGNS: Afebrile. Vital signs noted per chart record. GENERAL: Poor responsiveness, on ventilator, and looks chronic. HEENT: Normocephalic, atraumatic. NECK: Supple. Throat midline. LUNGS: Bilateral air entry, a few rhonchi. CARDIOVASCULAR: S1 and S2, no murmurs, rubs or gallops. ABDOMEN: Soft, nontender. EXTREMITIES: No clubbing or cyanosis. There is 2+ to 3+ edema. INTEGUMENT: No rash or purpura. LABORATORY DATA: BUN 89, creatinine 9.0, potassium 4.6, white count 20, hematocrit 26, platelets 417,000. IMPRESSION 1. Acute respiratory failure, intubated. 2. Acute renal failure, on renal replacement therapy. 3. Shock, resolved. 4. Acute liver injury, resolved. 5. Encephalopathy, under investigation, possible metabolic and possible organic injury to occipital brain region. PLAN: Continue current treatment. Tube feeds will be increased towards goal. Recheck labs in the morning. Follow up with neurology regarding CT scan. Will follow along closely. Sedation is needed for safety. Job#: [id number]
[2017-04-23] MEDS: MEROPENEM 500MG 500 MG in WATER STERILE 10ML VIAL 10 ML IV SCH ×2 (12:50→22:01)
[2017-04-23] MEDS: PANTOPRAZOLE 40 MG 10ML VIAL IV SCH ×2 (12:50→22:01)
--- NOTE | 2017-04-23 17:33 | Progress Note ---
PULMONARY MEDICINE PROGRESS NOTE SUBJECTIVE: Mr. Mai was seen and examined at bedside. He continues to have some fall risk. He was able to come off propofol for about 2 hours yesterday. He seems to spontaneously eye open and possibly pay attention. Improved per nursing. However, his respiratory work of breathing increased and went back on the sedation. Currently, he is on propofol 60 mcg per minute. TPN ongoing at 60. Tube feeds had to be stopped temporarily due to residuals. Residuals were 150 mL. REVIEW OF SYSTEMS: No bleeding, no rash. OBJECTIVE VITAL SIGNS: Afebrile. Vital signs noted per the chart record. GENERAL: No stress, on deep sedation, not doing too much. HEENT: Normocephalic, atraumatic. NECK: Supple. Throat midline. LUNGS: Bilateral air entry, rare rhonchi. CARDIOVASCULAR: S1, S2. No murmurs, rubs, or gallops. ABDOMEN: Soft, nontender. EXTREMITIES: No clubbing or cyanosis. There is mild edema to the arms and probably 2 to 3+ to the legs. INTEGUMENT: No rash or purpura. The left arm is cooling off. LABORATORY DATA: BUN 94, creatinine 8.2, white count 14, hematocrit 25. IMPRESSION 1. Acute respiratory failure. 2. Encephalopathy. 3. Possible occipital ischemic lesion to brain. 4. Acute renal failure, oligoanuric. 5. Admitted with volvulus and necrotic bowel with perforation. PLAN: Continue current treatment. At this time, IV antibiotics will be ongoing. Try to wean him off sedation as much as possible today and get an assessment of his neurologic status. Patient did get dialysis with 3.5 liters off. We will follow along closely. Continue wound care. Continue neurologic exam serially to prognosticate and hopefully get a good recovery. Job#: [id number] SAK
[2017-04-23] MEDS: VANCOMYCIN 500MG/NS 0.9% 100ML 100 ML IV SCH (17:48)
--- NOTE | 2017-04-23 18:57 | Diagnostic Imaging Report ---
PROCEDURE:Limited EXTREMITY ULTRASOUND COMPARISON:None. INDICATIONS:R/O ABSCESS in the left anterior forearm TECHNIQUE:Pisano scale and color Doppler ultrasound evaluation analysis was performed in the left anterior forearm. Similar images of the right anterior forearm were obtained for comparison. FINDINGS: Moderate subcutaneous soft tissue edema is identified, without well-defined fluid collections. There are elongated structures with heterogeneous echogenicity and punctate hyperechoic foci in bilateral upper extremity subcutaneous soft tissues, without any vascularity on color Doppler, which may represent chronically thrombosed superficial vessels. CONCLUSION: No evidence of well-defined fluid collections to suggest abscess. Brad Pizano M.D. Dictated by: Brad Pizano M.D. on 04/23/2017 at 19:04 Electronically approved by: Brad Pizano M.D. on 04/23/2017 at 19:04
[2017-04-23] MEDS: FENTANYL CITRATE/PF 100MCG/2 ML INJ IV PRN (19:16)
[2017-04-23] MEDS: CENTRAL TPN FORMULA 1 BAG IV SCH (20:00)
[2017-04-23] MEDS: MICAFUNGIN SODIUM 100 ML IV SCH (22:11)
[2017-04-24] VITALS (89 sets, daily range): BP systolic 130–206; BP diastolic 71–91
[2017-04-24] MEDS: PROPOFOL IV EMULSION 10MG/ML 100 ML IV PRN ×9 (01:28→22:50)
[2017-04-24] MEDS: SODIUM CHLORIDE 0.9% 250ML IRRIG IR SCH ×6 (03:12→22:23)
[2017-04-24 05:36] LABS: BASOPHILS # (AUTO) 0.1 (0.0-0.1); BASOPHILS % 0.6 % (0.0-1.0); EOSINOPHILS # (AUTO) 0.3 (0.0-0.4); HEMATOCRIT 25.9 % (38.2-49.6); LYMPHOCYTES # (AUTO) 0.8 (1.0-3.2); LYMPHOCYTES % 5.5 % (18.0-39.1); MEAN CORPUSCULAR HEMOGLOBIN 21.5 pg (28-32); MEAN CORPUSCULAR HGB CONC 30.9 g/dL (31-35); MEAN CORPUSCULAR VOLUME 69.6 fL (81-99); MONOCYTES # (AUTO) 2.7 (0.2-0.8); MONOCYTES % 19.9 % (4.4-11.3); NEUTROPHILS # (AUTO) 9.4 (2.1-6.9); NEUTROPHILS % 68.6 % (38.7-80.0); PLATELET COUNT 380 x10e3/uL (140-360); RED BLOOD COUNT 3.72 x10e6/uL (4.3-5.7); RED CELL DISTRIBUTION WIDTH 25.8 % (11.7-14.4)
[2017-04-24] MEDS: FENTANYL CITRATE/PF 100MCG/2 ML INJ IV PRN ×4 (05:49→14:30)
--- NOTE | 2017-04-24 06:12 | Diagnostic Imaging Report ---
EXAM: CHEST SINGLE (PORTABLE), AP 1 view DATE: 04/24/2017 5:00 AM Time stamp on exam: 0448 hrs INDICATION: Intubated COMPARISON: AP view of the chest April 23, 2017 FINDINGS: See impression IMPRESSION: Essentially nondiagnostic chest x-ray. Repeat exam is recommended. Signed by: Dr. Autumn Garcia M.D. on 04/24/2017 6:08 AM
[2017-04-24 06:28] LABS: ALBUMIN 1.5 g/dL (3.5-5.0); ALBUMIN/GLOBULIN RATIO 0.4 (0.8-2.0); ANION GAP 19.3 mmol/L (8-16); CALCIUM 7.8 mg/dL (8.4-10.2); CREATININE, SERUM 7.8 mg/dL (0.72-1.25); MAGNESIUM 2.2 MG/DL (1.3-2.1); POTASSIUM 4.3 mmol/L (3.5-5.1)
[2017-04-24] MEDS: PANTOPRAZOLE 40 MG 10ML VIAL IV SCH ×2 (09:00→21:18)
[2017-04-24] MEDS: HEPARIN SOD (PORCINE) 5,000 UNIT/ML VIAL SC SCH ×2 (09:30→21:19)
[2017-04-24] MEDS ORDERED: HYDRALAZINE HCL 20 MG/ML VIAL IV PRN (10:45)
[2017-04-24] MEDS: METOCLOPRAMIDE HCL 10 MG/2ML VIAL IV SCH ×2 (12:13→18:10)
[2017-04-24] MEDS: MEROPENEM 500MG 500 MG in WATER STERILE 10ML VIAL 10 ML IV SCH ×2 (12:13→21:18)
[2017-04-24 13:13] LABS: ANISOCYTOSIS MODERATE; BAND NEUTROPHILS % (MANUAL) 2 %; ELLIPTOCYTE, RBC SLIGHT; EOSINOPHILS % (MANUAL) 3 % (0-7); LYMPHOCYTES % (MANUAL) 5 % (19-48); MONOCYTES % (MANUAL) 13 % (3.4-9.0); NEUTROPHILS % (MANUAL) 76 % (40-74); PLATELET ESTIMATE SLIGHTLY INCREASED; PLATELET MORPHOLOGY COMMENT FEW LARGE; RBC MORPHOLOGY COMMENT ABNORMAL
[2017-04-24] MEDS: VANCOMYCIN 500MG/NS 0.9% 100ML 100 ML IV SCH (18:10)
[2017-04-24] MEDS ORDERED: CENTRAL TPN FORMULA 1 BAG IV SCH (20:00)
[2017-04-24] MEDS: MICAFUNGIN SODIUM 100 ML IV SCH (21:18)
[2017-04-24] MEDS ORDERED: HYDRALAZINE HCL 20 MG/ML VIAL IV ONE (22:00)
[2017-04-24] MEDS: CLONIDINE HCL 0.1 MG/24 HR 1 EA PATCH TOP SCH (22:00)
[2017-04-25] VITALS (89 sets, daily range): BP systolic 132–179; BP diastolic 81–151
[2017-04-25] MEDS: METOCLOPRAMIDE HCL 10 MG/2ML VIAL IV SCH ×4 (00:30→19:09)
[2017-04-25] MEDS: PROPOFOL IV EMULSION 10MG/ML 100 ML IV PRN ×10 (01:00→20:10)
[2017-04-25] MEDS: SODIUM CHLORIDE 0.9% 250ML IRRIG IR SCH ×6 (02:59→23:50)
[2017-04-25 05:22] LABS: BASOPHILS # (AUTO) 0.1 (0.0-0.1); BASOPHILS % 0.4 % (0.0-1.0); EOSINOPHILS # (AUTO) 0.1 (0.0-0.4); EOSINOPHILS % 0.6 % (0.0-6.0); HEMOGLOBIN 8.6 g/dL (14.0-18.0); LYMPHOCYTES # (AUTO) 0.4 (1.0-3.2); LYMPHOCYTES % 2.6 % (18.0-39.1); MEAN CORPUSCULAR HEMOGLOBIN 21.3 pg (28-32); MEAN CORPUSCULAR HGB CONC 30.7 g/dL (31-35); MEAN CORPUSCULAR VOLUME 69.3 fL (81-99); MONOCYTES # (AUTO) 2.5 (0.2-0.8); NEUTROPHILS # (AUTO) 12.3 (2.1-6.9); NEUTROPHILS % 77.7 % (38.7-80.0); PLATELET COUNT 436 x10e3/uL (140-360); RED BLOOD COUNT 4.04 x10e6/uL (4.3-5.7); RED CELL DISTRIBUTION WIDTH 26.3 % (11.7-14.4)
[2017-04-25 05:40] LABS: ANION GAP 18.2 mmol/L (8-16); CREATININE, SERUM 6.74 mg/dL (0.72-1.25); MAGNESIUM 2.1 MG/DL (1.3-2.1); POTASSIUM 4.2 mmol/L (3.5-5.1)
[2017-04-25 06:43] LABS: BAND NEUTROPHILS % (MANUAL) 1 %; EOSINOPHILS % (MANUAL) 1 % (0-7); LYMPHOCYTES % (MANUAL) 1 % (19-48); MONOCYTES % (MANUAL) 9 % (3.4-9.0); NEUTROPHILS % (MANUAL) 87 % (40-74)
[2017-04-25 06:44] LABS: ELLIPTOCYTE, RBC SLIGHT; PLATELET ESTIMATE SLIGHTLY INCREASED
[2017-04-25 06:45] LABS: ANISOCYTOSIS SLIGHT; HYPOCHROMASIA SLIGHT; RBC MORPHOLOGY COMMENT ABNORMAL
[2017-04-25 06:46] LABS: PLATELET MORPHOLOGY COMMENT NORMAL
--- NOTE | 2017-04-25 07:02 | Diagnostic Imaging Report ---
EXAM: CHEST SINGLE (PORTABLE), AP 1 view DATE: 04/25/2017 5:00 AM Time stamp on exam: 0521 hours INDICATION: Intubated patient COMPARISON: AP view of the chest April 24, 2017 FINDINGS: LINES/TUBES: The endotracheal tube terminates 4 cm above the miguelina. The nasal/orogastric tube tip is not seen. The internal jugular vein central line tip is not seen. LUNGS: Probably bibasilar atelectasis. PLEURA: Probably small bilateral pleural effusions. HEART AND MEDIASTINUM: No interval change. BONES AND SOFT TISSUES: No acute findings. IMPRESSION: Very limited exam. Probably no interval change. Signed by: Dr. Autumn Garcia M.D. on 04/25/2017 6:58 AM
[2017-04-25] MEDS: PANTOPRAZOLE 40 MG 10ML VIAL IV SCH ×2 (10:38→20:30)
[2017-04-25] MEDS: MEROPENEM 500MG 500 MG in WATER STERILE 10ML VIAL 10 ML IV SCH ×2 (10:38→20:30)
[2017-04-25] MEDS: HEPARIN SOD (PORCINE) 5,000 UNIT/ML VIAL SC SCH ×2 (10:39→20:30)
[2017-04-25] MEDS: VANCOMYCIN 500MG/NS 0.9% 100ML 100 ML IV SCH (19:09)
[2017-04-25] MEDS: CHOLESTYRAMINE 4 GM PACKET PO SCH (19:09)
[2017-04-25] MEDS ORDERED: CENTRAL TPN FORMULA 1 BAG IV SCH (20:00)
[2017-04-25] MEDS: MICAFUNGIN SODIUM 100 ML IV SCH (21:04)
[2017-04-26] VITALS (93 sets, daily range): BP systolic 110–159; BP diastolic 68–114
[2017-04-26] MEDS: PROPOFOL IV EMULSION 10MG/ML 100 ML IV PRN ×9 (00:05→23:17)
[2017-04-26] MEDS: METOCLOPRAMIDE HCL 10 MG/2ML VIAL IV SCH ×4 (01:00→18:00)
[2017-04-26] MEDS: SODIUM CHLORIDE 0.9% 250ML IRRIG IR SCH ×6 (03:15→23:28)
[2017-04-26 06:03] LABS: BASOPHILS # (AUTO) 0.1 (0.0-0.1); BASOPHILS % 0.5 % (0.0-1.0); EOSINOPHILS # (AUTO) 0.2 (0.0-0.4); EOSINOPHILS % 1.2 % (0.0-6.0); HEMATOCRIT 29.2 % (38.2-49.6); LYMPHOCYTES # (AUTO) 0.8 (1.0-3.2); LYMPHOCYTES % 4.6 % (18.0-39.1); MEAN CORPUSCULAR HEMOGLOBIN 21.7 pg (28-32); MEAN CORPUSCULAR HGB CONC 30.8 g/dL (31-35); MEAN CORPUSCULAR VOLUME 70.4 fL (81-99); MONOCYTES % 12.5 % (4.4-11.3); NEUTROPHILS # (AUTO) 12.8 (2.1-6.9); NEUTROPHILS % 78.9 % (38.7-80.0); PLATELET COUNT 455 x10e3/uL (140-360); RED BLOOD COUNT 4.15 x10e6/uL (4.3-5.7); RED CELL DISTRIBUTION WIDTH 26.4 % (11.7-14.4)
--- NOTE | 2017-04-26 06:14 | Diagnostic Imaging Report ---
EXAM: CHEST SINGLE (PORTABLE), AP 1 view DATE: 04/26/2017 5:00 AM Time stamp on exam: 0526 hours INDICATION: Respiratory failure COMPARISON: AP view of the chest April 25, 2017 FINDINGS: LINES/TUBES: Endotracheal tube terminates 4 cm above the miguelina. Nasal/orogastric tube courses below the diaphragm out of field of view. There appears to be 2 right internal jugular vein central lines terminates in the expected location of the atrial caval junction. LUNGS: Bibasilar atelectasis. PLEURA: Indeterminate for layering pleural effusions. HEART AND MEDIASTINUM: Stable BONES AND SOFT TISSUES: No acute findings. IMPRESSION: No significant interval change. Signed by: Dr. Autumn Garcia M.D. on 04/26/2017 6:10 AM
[2017-04-26 06:24] LABS: ALBUMIN 1.7 g/dL (3.5-5.0); ALBUMIN/GLOBULIN RATIO 0.3 (0.8-2.0); ANION GAP 19.2 mmol/L (8-16); CALCIUM 8.1 mg/dL (8.4-10.2); CREATININE, SERUM 5.97 mg/dL (0.72-1.25); MAGNESIUM 2.1 MG/DL (1.3-2.1); POTASSIUM 4.2 mmol/L (3.5-5.1)
--- NOTE | 2017-04-26 06:35 | Progress Note ---
DATE: April 26, 2017 TIME: 5:30 a.m. OVERNIGHT: Patient remains intubated. REVIEW OF SYSTEMS: Unobtainable. PHYSICAL EXAMINATION VITAL SIGNS: Have been reviewed. GENERAL: A tired-appearing man resting in bed intubated. HEENT: Anicteric. He has an NG tube in place. He has an ET tube in place. CARDIOVASCULAR: Normal S1 and S2. LUNGS: He has coarse breath sounds throughout. ABDOMEN: Soft. He has a midline surgical site with dressing packed. He has a right-sided FEDE drain in the right abdomen. : He has a rectal tube in place. EXTREMITIES: He has no edema. SKIN: Dry. PSYCHIATRIC: Unable to assess. NEUROLOGICAL: He does withdrawal and localize to pain with stimuli. LABS: Reviewed. MEDICATIONS: Reviewed. ASSESSMENT AND PLAN: This is a 37-year-old man with: 1. Acute respiratory failure: He is being ventilated per pulmonary services. Possibility of trach exists. 2. Acute metabolic encephalopathy: Will continue broad-spectrum antibiotics. Brain computerized tomography done and results are pending. 3. Infected bowel/necrotic bowel/septic shock/intra-abdominal abscess: He is status post surgical resection. He has packing in place. Continue local wound care. Continue antibiotics. Continue vancomycin. Vancomycin trough was 13 on April 24, 2017. 4. Escherichia coli pneumonia: Will continue meropenem. 5. Escherichia coli and Asia albicans infected abdominal wound: Continue antifungal and meropenem. Continue broad-spectrum antibiotics with vancomycin. 6. Nutrition: Continue total parenteral nutrition. 7. Acute kidney injury/acute tubular necrosis: His creatinine yesterday was 6.74, BUN 83, GFR 9. I's and O's were 1115/425. Continue dialysis. 8. Bilateral deep venous thrombosis: He has an inferior vena cava filter in place. 9. Diabetes mellitus, type 2: Continue sliding scale insulin and adjusted nutrition. Will obtain a hemoglobin A1c and a lipid panel. 10. Hypertension: Continue AV blocking agents. 11. Prophylaxis: He is also on heparin b.i.d. Will continue intravenous Protonix. 12. Prognosis: Fair and guarded. 13. Disposition: Monitor closely in the intensive care unit. Critical care time more than 35 minutes. Will obtain a lipid panel and hemoglobin A1c. Monitor closely in the intensive care unit. Job#: [id number] MARTIN
[2017-04-26 06:58] LABS: CHOL/HDL RATIO 4.6 (3.9-4.7)
--- NOTE | 2017-04-26 07:03 | Progress Note ---
DATE: April 25, 2017 PULMONARY MEDICINE PROGRESS NOTE SUBJECTIVE: Mr. Mai was seen and examined at bedside. He continues to be intubated orally. He is on the ventilator still. There was some laborious breathing with large tidal volumes. The patient remains off pressors at this time. Attempts have been given to have him on the tube feeds, which is partially successful so far. He continues on TPN at the same time right now. Elevated white count still noted. REVIEW OF SYSTEMS: Cannot get as he is not disclosing. OBJECTIVE VITAL SIGNS: Afebrile. Vital signs noted per the electronic record. GENERAL: When he is sedated, he is in no distress and synchronous but off sedation deep breathing. HEENT: Normocephalic, atraumatic. NECK: Supple. Throat midline. LUNGS: Bilateral air entry, a few rhonchi. Decreased breath sounds at the base. CARDIOVASCULAR: S1, S2. No murmurs, rubs or gallops. ABDOMEN: Soft, nontender. EXTREMITIES: No clubbing or cyanosis. There is still 2 to 3+ edema. INTEGUMENT: No rash. No purpura. LABS: 60 white count, 9/28 H and H, 436 platelets, 4.2 potassium, 22 bicarbonate, 83 BUN, 6.7 creatinine. IMPRESSION AND PLAN 1. Acute respiratory failure, on ventilator. 2. Acute kidney injury, oliguric. 3. Volvulus, status post colonic perforation and peritonitis. 4. Fulminant liver injury, improved. 5. Shock, resolved. 6. Encephalopathy, not otherwise specified. Continue serial evaluations and prognosticate the patient. Will keep him intubated for now. Based on his rate of improvement, we will decide on tracheostomy or just maintaining him in an intubated state. Will follow along closely. Continue antibiotics at this time. Dialysis as needed. Follow up urine output for recovery. Job#: [id number]
[2017-04-26 07:24] LABS: EOSINOPHILS % (MANUAL) 1 % (0-7); LYMPHOCYTES % (MANUAL) 5 % (19-48); MONOCYTES % (MANUAL) 9 % (3.4-9.0); NEUTROPHILS % (MANUAL) 84 % (40-74)
[2017-04-26 07:25] LABS: ANISOCYTOSIS MODERATE; HYPOCHROMASIA SLIGHT; PLATELET ESTIMATE SLIGHTLY INCREASED; PLATELET MORPHOLOGY COMMENT NORMAL; RBC MORPHOLOGY COMMENT ABNORMAL
--- NOTE | 2017-04-26 08:52 | Diagnostic Imaging Report ---
Examination: CT BRAIN WITHOUT CONTRAST History:Confusion. Altered mental status. Comparison studies:Head CT performed April 22, 2017 Technique: Axial images were obtained from the skull base to the vertex. Coronal and sagittal images reconstructed from the axial data. Intravenous contrast: None Findings: Motion artifact. Scalp: No abnormalities. Bones: No fractures, blastic or lytic lesions. Brain sulci: Appropriate for age. Ventricles: No hydrocephalus. Extra-axial space: No large hemorrhage. Parenchyma: The previously seen areas of cortical and subcortical based hypoattenuation in left greater than right occipital lobes and millimeter area of hyperdensity concerning for hemorrhage is not demonstrated on current study and may be related to patient's motion. Sellar/suprasellar region: No abnormalities. Craniocervical junction: Patent foramen magnum. No Chiari one malformation. Incidental findings: None. 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 Repeat examination is recommended when patient is stable. Signed by: Dr. Miriam Damian M.D. on 04/26/2017 8:48 AM
[2017-04-26] MEDS: CHOLESTYRAMINE 4 GM PACKET PO SCH ×2 (09:01→17:00)
[2017-04-26] MEDS: PANTOPRAZOLE 40 MG 10ML VIAL IV SCH ×2 (09:01→21:01)
[2017-04-26] MEDS: HEPARIN SOD (PORCINE) 5,000 UNIT/ML VIAL SC SCH ×2 (09:01→21:21)
[2017-04-26] MEDS: MEROPENEM 500MG 500 MG in WATER STERILE 10ML VIAL 10 ML IV SCH ×2 (09:02→21:01)
--- NOTE | 2017-04-26 12:29 | Progress Note ---
DATE: April 26, 2017 PULMONARY MEDICINE PROGRESS NOTE SUBJECTIVE: Mr. Mai was seen and examined at bedside. Patient continues to have intubated state. Still having heavy breathing. Patient continues to put out more urine. Put out almost a liter of urine yesterday. Today so far 30 mL per hour. He underwent dialysis with 4.3 liters out yesterday. Tube feeds tolerated at 25 mL per hour but have been put on hold due to dialysis. Propofol 45 mcg, TPN 60 mL per hour. Liters in 2.8, liters out 1.1. REVIEW OF SYSTEMS: No headaches, no rash. OBJECTIVE VITAL SIGNS: Afebrile. Vital noted per electronic record. GENERALLY: Heavy breathing on ventilator, orally intubated. HEENT: Normocephalic, atraumatic. NECK: Supple. Throat midline. LUNGS: Bilateral air entry, a few rhonchi. CARDIOVASCULAR: S1 and S2. No murmurs, rubs or gallops. ABDOMINAL: Soft, nontender. EXTREMITIES: No clubbing, no cyanosis. There is still 2+ edema. INTEGUMENT: No rash. No purpura. LABS: BUN 39, creatinine 5.9, potassium 4.2. White count 16, hematocrit 29, platelets 455. IMPRESSION AND PLAN 1. Acute respiratory failure, intubated. 2. Acute kidney failure, recovering. 3. Peritonitis. 4. Encephalopathy, under evaluation. CT done today of the head showing no discrete abnormalities and continues to lend towards a better prognosis. Patient furthermore to have serial neurologic exams. EEG today. Continue ventilator. Consider increasing the tube feeds and weaning TPN if the patient goes to goal of tube feeds. Follow up closely. Dialysis today. Job#: [id number] EV
[2017-04-26] MEDS: VANCOMYCIN 500MG/NS 0.9% 100ML 100 ML IV SCH (18:04)
[2017-04-26] MEDS: BALSAM PERU/CASTOR OIL 60 GM OINT...G. TP SCH (18:05)
[2017-04-26] MEDS ORDERED: CENTRAL TPN FORMULA 1 BAG IV SCH (20:00)
[2017-04-26] MEDS: MICAFUNGIN SODIUM 100 ML IV SCH (20:23)
[2017-04-26] MEDS: ACETAMINOPHEN 325 MG TAB PO PRN (20:24)
[2017-04-26] MEDS: FENTANYL CITRATE/PF 100MCG/2 ML INJ IV PRN (21:02)
[2017-04-27] VITALS (92 sets, daily range): BP systolic 104–156; BP diastolic 67–94
[2017-04-27] MEDS: METOCLOPRAMIDE HCL 10 MG/2ML VIAL IV SCH ×4 (00:15→18:00)
[2017-04-27] MEDS: PROPOFOL IV EMULSION 10MG/ML 100 ML IV PRN ×6 (01:14→20:30)
[2017-04-27] MEDS: SODIUM CHLORIDE 0.9% 250ML IRRIG IR SCH ×6 (02:58→23:30)
[2017-04-27] MEDS: FENTANYL CITRATE/PF 100MCG/2 ML INJ IV PRN ×2 (06:04→23:30)
--- NOTE | 2017-04-27 06:26 | Diagnostic Imaging Report ---
EXAM: CHEST SINGLE (PORTABLE), AP 1 view DATE: 04/27/2017 5:00 AM Time stamp on exam: 0544 hours INDICATION: Not provided COMPARISON: AP view of the chest April 26, 2017 FINDINGS: LINES/TUBES: Stable right internal jugular vein central line, nasal/orogastric tube and endotracheal tube. LUNGS: Limited view of the lungs. Bibasilar atelectasis. PLEURA: Can't exclude small bilateral pleural effusions. HEART AND MEDIASTINUM: Stable BONES AND SOFT TISSUES: No acute findings. IMPRESSION: Stable exam. Signed by: Dr. Autumn Garcia M.D. on 04/27/2017 6:22 AM
[2017-04-27 06:36] LABS: BASOPHILS # (AUTO) 0.1 (0.0-0.1); BASOPHILS % 0.9 % (0.0-1.0); EOSINOPHILS # (AUTO) 0.3 (0.0-0.4); EOSINOPHILS % 1.8 % (0.0-6.0); HEMATOCRIT 26.3 % (38.2-49.6); HEMOGLOBIN 8.2 g/dL (14.0-18.0); LYMPHOCYTES % 6.4 % (18.0-39.1); MEAN CORPUSCULAR HEMOGLOBIN 22.2 pg (28-32); MEAN CORPUSCULAR HGB CONC 31.2 g/dL (31-35); MEAN CORPUSCULAR VOLUME 71.3 fL (81-99); MONOCYTES % 12.6 % (4.4-11.3); NEUTROPHILS % 76.4 % (38.7-80.0); PLATELET COUNT 357 x10e3/uL (140-360); RED BLOOD COUNT 3.69 x10e6/uL (4.3-5.7); RED CELL DISTRIBUTION WIDTH 26.5 % (11.7-14.4)
[2017-04-27 07:52] LABS: ALBUMIN 1.9 g/dL (3.5-5.0); ALBUMIN/GLOBULIN RATIO 0.4 (0.8-2.0); ANION GAP 20.7 mmol/L (8-16); CALCIUM 8.1 mg/dL (8.4-10.2); CREATININE, SERUM 5.64 mg/dL (0.72-1.25); MAGNESIUM 2.1 MG/DL (1.3-2.1); PHOSPHORUS 8.2 MG/DL (2.3-4.7); POTASSIUM 3.7 mmol/L (3.5-5.1)
[2017-04-27] MEDS: BALSAM PERU/CASTOR OIL 60 GM OINT...G. TP SCH ×2 (08:29→17:22)
[2017-04-27] MEDS: PANTOPRAZOLE 40 MG 10ML VIAL IV SCH ×2 (08:29→20:30)
[2017-04-27] MEDS: CHOLESTYRAMINE 4 GM PACKET PO SCH ×2 (08:29→17:00)
[2017-04-27] MEDS: MEROPENEM 500MG 500 MG in WATER STERILE 10ML VIAL 10 ML IV SCH ×2 (08:29→20:30)
[2017-04-27] MEDS: HEPARIN SOD (PORCINE) 5,000 UNIT/ML VIAL SC SCH ×2 (09:28→20:30)
[2017-04-27 10:42] LABS: ANISOCYTOSIS SLIGHT; HYPOCHROMASIA SLIGHT; LYMPHOCYTES % (MANUAL) 8 % (19-48); MICROCYTOSIS SLIGHT; MONOCYTES % (MANUAL) 6 % (3.4-9.0); NEUTROPHILS % (MANUAL) 86 % (40-74); PLATELET ESTIMATE ADEQUATE; PLATELET MORPHOLOGY COMMENT NORMAL; RBC MORPHOLOGY COMMENT NORMAL
--- NOTE | 2017-04-27 15:53 | Progress Note ---
DATE: April 27, 2017 SUBJECTIVE: Overnight no change. REVIEW OF SYSTEMS: Unobtainable. OBJECTIVE VITAL SIGNS: Reviewed. GENERAL APPEARANCE: A tired-appearing man resting in the bed, intubated. HEENT: T tube in place. CARDIOVASCULAR: Normal S1 and S2. LUNGS: Coarse breath sounds throughout. ABDOMEN: Soft. He has midline dressing that is clean and dry. He has FEDE drain. : He has rectal tube. EXTREMITIES: There is no edema. NEUROLOGIC: Moving extremities, but he is sedated. SKIN: Dry. PSYCHIATRIC: Unable to assess. LABS: Reviewed. MEDICATIONS: Reviewed. ASSESSMENT AND PLAN: A 37-year-old man. 1. Acute respiratory failure. Continue ventilator support, may need trach. 2. Acute metabolic encephalopathy. 3. Infected bowel/necrotic bowel/septic shock/intra-abdominal abscess. 4. Escherichia coli pneumonia. 5. Escherichia coli and Asia albicans infected abdominal abscess. 6. Acute kidney injury/acute tubular necrosis. 7. Bilateral deep venous thrombosis. He has an IVC filter. 8. Diabetes mellitus type 2. 9. Hypertension. PLAN: 1. Continue ventilator support. May need trach. 2. Will continue broad-spectrum antibiotics. 3. Continue parenteral nutrition. 4. Continue dialysis. 5. Continue sliding scale insulin. Hemoglobin A1c is 5.2. LDL 46, triglycerides 61. 6. Prophylaxis: Continue proton pump inhibitor and heparin q.12 h. 7. Continue vancomycin, micafungin and meropenem. 8. I discussed the case with mother at bedside. Critical care time more than 35 minutes Job#: [id number]
[2017-04-27] MEDS: VANCOMYCIN 500MG/NS 0.9% 100ML 100 ML IV SCH (17:22)
[2017-04-27] MEDS: CENTRAL TPN FORMULA 1 BAG IV SCH (20:30)
[2017-04-27] MEDS: MICAFUNGIN SODIUM 100 ML IV SCH (21:00)
[2017-04-28] VITALS (88 sets, daily range): BP systolic 90–167; BP diastolic 53–101
[2017-04-28] MEDS: PROPOFOL IV EMULSION 10MG/ML 100 ML IV PRN ×3 (00:40→08:23)
[2017-04-28] MEDS: METOCLOPRAMIDE HCL 10 MG/2ML VIAL IV SCH ×4 (00:54→18:08)
[2017-04-28] MEDS: ACETAMINOPHEN 325 MG TAB PO PRN (01:35)
[2017-04-28] MEDS: SODIUM CHLORIDE 0.9% 250ML IRRIG IR SCH ×6 (03:32→23:51)
[2017-04-28 06:22] LABS: BASOPHILS # (AUTO) 0.2 (0.0-0.1); BASOPHILS % 0.8 % (0.0-1.0); EOSINOPHILS # (AUTO) 0.1 (0.0-0.4); EOSINOPHILS % 0.7 % (0.0-6.0); HEMATOCRIT 27.2 % (38.2-49.6); HEMOGLOBIN 8.3 g/dL (14.0-18.0); LYMPHOCYTES # (AUTO) 0.8 (1.0-3.2); LYMPHOCYTES % 3.8 % (18.0-39.1); MEAN CORPUSCULAR HEMOGLOBIN 21.9 pg (28-32); MEAN CORPUSCULAR HGB CONC 30.5 g/dL (31-35); MEAN CORPUSCULAR VOLUME 71.8 fL (81-99); MONOCYTES # (AUTO) 2.1 (0.2-0.8); MONOCYTES % 9.9 % (4.4-11.3); NEUTROPHILS # (AUTO) 17.7 (2.1-6.9); NEUTROPHILS % 83.6 % (38.7-80.0); PLATELET COUNT 344 x10e3/uL (140-360); RED BLOOD COUNT 3.79 x10e6/uL (4.3-5.7); RED CELL DISTRIBUTION WIDTH 26.1 % (11.7-14.4)
--- NOTE | 2017-04-28 06:32 | Diagnostic Imaging Report ---
EXAM: CHEST SINGLE (PORTABLE), AP 1 view DATE: 04/28/2017 5:00 AM Time stamp on exam: 0540 hours INDICATION: Respiratory failure COMPARISON: AP view of the chest April 26, 2017 FINDINGS: LINES/TUBES: Endotracheal tube, right internal jugular vein central lines and nasal/orogastric tubes poorly visualized, though appear in stable position. LUNGS: Limited view. Bibasilar atelectasis. PLEURA: No effusions or pneumothorax. HEART AND MEDIASTINUM: Normal size and contour. BONES AND SOFT TISSUES: No acute findings. IMPRESSION: No interval change within limitations of the exam. Signed by: Dr. Autumn Garcia M.D. on 04/28/2017 6:29 AM
[2017-04-28 06:46] LABS: ALBUMIN/GLOBULIN RATIO 0.4 (0.8-2.0); ANION GAP 17.9 mmol/L (8-16); CALCIUM 8.4 mg/dL (8.4-10.2); CREATININE, SERUM 5.25 mg/dL (0.72-1.25); MAGNESIUM 2.1 MG/DL (1.3-2.1); POTASSIUM 3.9 mmol/L (3.5-5.1)
[2017-04-28] MEDS ORDERED: ACETAMINOPHEN 1000 MG/100 ML IV PRN (07:15)
[2017-04-28] MEDS: CHOLESTYRAMINE 4 GM PACKET PO SCH ×2 (09:38→18:08)
[2017-04-28] MEDS: BALSAM PERU/CASTOR OIL 60 GM OINT...G. TP SCH ×2 (09:38→18:08)
[2017-04-28] MEDS: PANTOPRAZOLE 40 MG 10ML VIAL IV SCH ×2 (09:38→20:48)
[2017-04-28] MEDS: MEROPENEM 500MG 500 MG in WATER STERILE 10ML VIAL 10 ML IV SCH ×2 (09:38→20:48)
[2017-04-28] MEDS: HEPARIN SOD (PORCINE) 5,000 UNIT/ML VIAL SC SCH ×2 (09:55→21:57)
--- NOTE | 2017-04-28 13:01 | Progress Note ---
DATE: April 27, 2017 PULMONARY MEDICINE PROGRESS NOTE SUBJECTIVE: Mr. Mai was seen and examined at bedside. He remains intubated. He is on ventilator. Feeds were ongoing at 30 mL per hour, but were stopped by surgeon. Fifty mL of residual noted. TPN at 60 mL per hour. Propofol at 55 mcg per minute. The patient expected for tracheostomy still, and so no weaning was done. The patient was hypersynchronous breathing and still not responding to external stimuli very well. EGD was done yesterday and preliminary suggested no new changes to our treatment. Urine output of greater than 50 mL an hour. Hemodialysis 4.2 liters out this morning already. REVIEW OF SYSTEMS: Cannot get as he is intubated. OBJECTIVE VITAL SIGNS: Afebrile. Vital signs noted per electronic record. GENERAL: In no apparent distress, but he is on ventilator, unresponsive for the most part. HEENT: Normocephalic, atraumatic. NECK: Supple. Throat midline. LUNGS: Bilateral air entry, decreased breath sounds at the bases, moderate rhonchi. CARDIOVASCULAR: S1 and S2 and no murmurs, rubs or gallops. ABDOMEN: Soft and nontender. EXTREMITIES: No clubbing and no cyanosis. There is still 2+ edema. INTEGUMENT: No rash, no purpura. LABORATORY DATA: Potassium 3.7, creatinine 5.6, white count 16, hematocrit 26. IMPRESSION 1. Acute respiratory failure. 2. Encephalopathy, persistent, multifactorial and under investigation as well. 3. Abnormal head CT, resolving. Possible leukoencephalopathy. 4. Acute renal failure, slowly recovering. 5. Acute liver failure, recovered. 6. Peritonitis. 7. Admit for volvulus with necrotic bowel perforation. 8. Postoperative state status post gastrointestinal surgery. PLAN: Continue serial neurologic exams. Follow up closely. I discussed with nursing. Followup his eyes as it is slower on the recovery to midline with doll's eye maneuver. The patient's pupils still recovering to midnight after multiple prodding and pupil's symmetric and reactive. The patient may or may not need further head imaging. Furthermore, tracheostomy to be considered in the next few days. Continue antibiotics. Dialysis today. Check for renal recovery. Add some PEEP to the ventilator given the atelectasis and the intermittent desaturations that were recorded. Will follow along closely. Job#: [id number] GH
[2017-04-28] MEDS: CENTRAL TPN FORMULA 1 BAG IV SCH (20:28)
[2017-04-28] MEDS: MICAFUNGIN SODIUM 100 ML IV SCH (20:48)
--- NOTE | 2017-04-28 21:25 | Progress Note ---
DATE: April 28, 2017 TIME: 6:50 a.m. OVERNIGHT: No events, remains intubated. REVIEW OF SYSTEMS: Unobtainable. PHYSICAL EXAMINATION: VITAL SIGNS: Have been reviewed. T-max is 100.8, heart rate 103. GENERAL APPEARANCE: Tired-appearing man resting in bed, intubated. HEENT: Anicteric. Pupils responsive to light. CARDIOVASCULAR: Normal S1 and S2. LUNGS: Good breath sounds, mildly coarse. ABDOMEN: Soft. He has midline surgical site with dry dressing and packing in place. : He has rectal tube. EXTREMITIES: He has trace edema. SKIN: Dry. PSYCHIATRIC: Unable to assess. NEUROLOGICAL: Pupils responsive to light, localizes to pain. LABS: Reviewed. MEDICATIONS: Reviewed. ASSESSMENT: A 37-year-old man: 1. Acute respiratory failure. 2. Acute metabolic encephalopathy. 3. Infected bowel/necrotic bowel/septic shock/intra-abdominal abscess. 4. Escherichia coli pneumonia. 5. Escherichia coli and Asia albicans infected abdominal wound. 6. Acute kidney injury/acute tubular necrosis. 7. Diabetes mellitus type 2. 8. Hypertension. PLAN: 1. Continue ventilator support. Plan for trach later this coming week. 2. Continue broad-spectrum antibiotics. Obtain blood cultures as patient had fevers overnight and increasing leukocytosis. 3. Continue local wound care of the abdominal wound. 4. Continue TPN and feedings. 5. Continue sliding scale insulin. Hemoglobin A1c was 5.2, LDL 46. 6. Follow up BMP results today. 7. Chest x-ray does not show any interval changes. Continue ventilator support. 8. Continue meropenem, micafungin, and vancomycin. Defer to infectious disease. 9. Continue IV PPI. 10. I have discussed case with at bedside. Critical care time more than 35 minutes. Job#: [id number]
[2017-04-29] VITALS (90 sets, daily range): BP systolic 116–160; BP diastolic 72–98
[2017-04-29] MEDS: SODIUM CHLORIDE 0.9% 250ML IRRIG IR SCH ×6 (03:30→23:20)
[2017-04-29] MEDS: METOCLOPRAMIDE HCL 10 MG/2ML VIAL IV SCH ×4 (05:38→17:13)
--- NOTE | 2017-04-29 06:05 | Consultation ---
DATE OF CONSULTATION: April 22, 2017 NEUROLOGICAL CONSULTATION TIME: 4:45 p.m. REASON FOR CONSULTATION: Altered mental status. This is a 37-year-old male with multiple medical problems. He was admitted apparently with sepsis, perforated viscus and underwent surgery. Respiratory failure, renal failure, severe encephalopathy. On ventilator and sedation with propofol. LIST MEDICATIONS: Has been reviewed. PAST HISTORY: Previous bariatric surgery, previous ventral hernia repair and right rotator cuff surgery. ALLERGIES: NO ALLERGIES. FAMILY HISTORY: Noncontributory. SOCIAL HISTORY: He does not smoke or drink. REVIEW OF SYSTEMS: Negative because of the patient's mental status. PHYSICAL EXAMINATION GENERAL: At this time, his relies on the family members. His eyes are open, but does not follow any commands or follows with stimulation. HEENT: Pupils are 3 mm and both sluggish reaction. Doll's movements are present. Corneal reflex present. Gag reflex present. EXTREMITIES: Limbs flaccid. There is minimal withdrawal response to stimulation. LABS: Have been reviewed in detail. CT scan of the brain showed bilateral hypodense area in both occipital regions. The CT scan had too much movement. There is no mass effect. The suspicion is reversed leukoencephalopathy. Family has been explained about the negative findings. Because of negative findings, we are going to do an EEG tomorrow. IMPRESSION 1. Sepsis secondary to respiratory failure. 2. Renal failure. 3. Severe encephalopathic syndrome. Will follow closely. Job#: [id number] [place]
--- NOTE | 2017-04-29 06:12 | Progress Note ---
DATE: April 28, 2017 PULMONARY MEDICINE PROGRESS NOTE SUBJECTIVE: Mr. Mai was seen and examined at the bedside. He is still intubated. He is endotracheally intubated. He is on the ventilator. Ventilation at 12 L per minute with peak pressure of 19. He has been off sedation. He is seeming to respond by head nodding and eye opening and eye closing. He is still basically not moving the 4 extremities, although nursing states that he will some times move the right extremities. Tube feeds on hold temporarily due to intermittently high residual numbers again. TPN at 60 mL per hour. No hemodialysis today. Urine output 1.3 L today. REVIEW OF SYSTEMS: Cannot get as he is intubated. OBJECTIVE VITAL SIGNS: Afebrile. Vital signs noted per electronic record. GENERAL: No acute distress. On the ventilator and I am not sure he looks comfortable or not. HEENT: Normocephalic and atraumatic. NECK: Supple. Throat midline. LUNGS: Bilateral air entry. Rare rhonchi. CARDIOVASCULAR: S1 and S2. No murmurs, rubs or gallops. ABDOMEN: Soft and nontender. EXTREMITIES: No clubbing. No cyanosis. There is some edema. INTEGUMENT: No rash or purpura. LABS: Potassium 3.9, BUN 81, creatinine 5.2. White count 21, hematocrit 27. IMPRESSION AND PLAN 1. Acute kidney failure: Recovering urine output. 2. Acute respiratory failure. 3. Significant encephalopathy, improving. 4. Neuropathy: Still significant. 5. Peritonitis, secondary. 6. Admitted with volvulus and ischemic gut with perforation. 7. Other organ dysfunction: All slowly improving. Continue current care. Tracheostomy tomorrow planned. Follow up the white count. Continue Reglan. TPN for nutrition, although tube feeds intermittently as tolerated. We do not want the residuals to go up so will have caution. Will give the patient vitamins each day. Patient does not need extensive neurologic exams at this point. He can get some rest with medicines if needed. He still has a long way to go in this critical and complex illness. Job#: [id number] [place]
[2017-04-29 06:15] LABS: BASOPHILS # (AUTO) 0.1 (0.0-0.1); BASOPHILS % 0.5 % (0.0-1.0); EOSINOPHILS # (AUTO) 0.2 (0.0-0.4); EOSINOPHILS % 0.7 % (0.0-6.0); HEMATOCRIT 25.1 % (38.2-49.6); HEMOGLOBIN 7.7 g/dL (14.0-18.0); LYMPHOCYTES # (AUTO) 0.7 (1.0-3.2); LYMPHOCYTES % 3.1 % (18.0-39.1); MEAN CORPUSCULAR HEMOGLOBIN 22.1 pg (28-32); MEAN CORPUSCULAR HGB CONC 30.7 g/dL (31-35); MEAN CORPUSCULAR VOLUME 71.9 fL (81-99); MONOCYTES % 8.7 % (4.4-11.3); NEUTROPHILS # (AUTO) 19.6 (2.1-6.9); NEUTROPHILS % 86.1 % (38.7-80.0); PLATELET COUNT 324 x10e3/uL (140-360); RED BLOOD COUNT 3.49 x10e6/uL (4.3-5.7); RED CELL DISTRIBUTION WIDTH 25.5 % (11.7-14.4)
[2017-04-29 06:34] LABS: INR 1.1; PROTHROMBIN TIME 14.8 seconds (11.9-14.5)
[2017-04-29 06:35] LABS: PARTIAL THROMBOPLASTIN TIME 38.1 seconds (23.8-35.5)
[2017-04-29 07:21] LABS: ALBUMIN/GLOBULIN RATIO 0.4 (0.8-2.0); ANION GAP 18.7 mmol/L (8-16); CALCIUM 8.3 mg/dL (8.4-10.2); CREATININE, SERUM 5.83 mg/dL (0.72-1.25); POTASSIUM 3.7 mmol/L (3.5-5.1)
[2017-04-29 08:26] LABS: LYMPHOCYTES % (MANUAL) 5 % (19-48); MONOCYTES % (MANUAL) 8 % (3.4-9.0); NEUTROPHILS % (MANUAL) 87 % (40-74)
[2017-04-29 08:27] LABS: ANISOCYTOSIS SLIGHT; HYPOCHROMASIA MODERATE; PLATELET ESTIMATE ADEQUATE; PLATELET MORPHOLOGY COMMENT NORMAL; RBC MORPHOLOGY COMMENT ABNORMAL
--- NOTE | 2017-04-29 08:47 | Progress Note ---
DATE: April 29, 2017 TIME: 4:35 a.m. OVERNIGHT: No change. REVIEW OF SYSTEMS: Unobtainable. PHYSICAL EXAMINATION VITAL SIGNS: Have been reviewed. GENERAL: A tired-appearing man resting in bed. HEENT: The patient has an ET tube in place. CARDIOVASCULAR: Normal S1 and S2. LUNGS: Good breath sounds and mildly coarse. ABDOMEN: Soft. Midline surgical site with dressing place, clean and dry. : He has a rectal tube. EXTREMITIES: He has trace edema. SKIN: Dry. PSYCHIATRIC: Unable to assess. NEUROLOGICAL: Pupils responsive to light. Localizes to pain. LABS: Reviewed. MEDICATIONS: Reviewed. ASSESSMENT: A 37-year-old man with: 1. Acute respiratory failure. 2. Acute metabolic encephalopathy. 3. Infected bowel/necrotic bowel/septic shock/intra-abdominal abscess. 4. Escherichia coli pneumonia. 5. Escherichia coli and Asia albicans infected abdominal wound. 6. Acute kidney injury/acute tubular necrosis. 7. Diabetes mellitus, type 2. 8. Hypertension. PLAN 1. Continue ventilator support. Plan for trach today. 2. Continue broad-spectrum antibiotics. Follow up repeat cultures. 3. Continue local wound care of the abdominal wound. 4. Continue with nutrition after the procedure. 5. The patient is on meropenem, micafungin and vancomycin. Follow up CBC and white count today. The patient has remained afebrile overnight. Job#: [id number] MARTIN
[2017-04-29] MEDS: MULTIVITAMINS 120ML BOTTLE PO SCH (09:00)
[2017-04-29] MEDS: MEROPENEM 500MG 500 MG in WATER STERILE 10ML VIAL 10 ML IV SCH ×2 (09:00→21:13)
[2017-04-29] MEDS: HEPARIN SOD (PORCINE) 5,000 UNIT/ML VIAL SC SCH (09:00)
[2017-04-29] MEDS: PANTOPRAZOLE 40 MG 10ML VIAL IV SCH ×2 (09:00→21:13)
[2017-04-29] MEDS: BALSAM PERU/CASTOR OIL 60 GM OINT...G. TP SCH ×2 (09:00→17:09)
[2017-04-29] MEDS: CHOLESTYRAMINE 4 GM PACKET PO SCH ×2 (09:00→17:13)
[2017-04-29 09:11] LABS: FOLATE 9.4 ng/mL (7.0-15.4)
[2017-04-29] MEDS ORDERED: HEPARIN SOD (PORCINE) 1000 UNIT/ML SDV ONE (11:32)
[2017-04-29] MEDS ORDERED: HEPARIN SOD (PORCINE) 1000 UNIT/ML SDV IV PRN (11:45)
[2017-04-29] MEDS: PROPOFOL IV EMULSION 10MG/ML 100 ML IV PRN (13:00)
[2017-04-29] MEDS ORDERED: BUPIVACAINE 0.5%/EPI 30 ML SDV INJ ONE (13:50)
--- NOTE | 2017-04-29 14:41 | Diagnostic Imaging Report ---
PROCEDURE:CHEST SINGLE (PORTABLE) TECHNIQUE:Portable AP chest INDICATION:Tracheostomy placement COMPARISON:Patients [facility], DX, CHEST SINGLE (PORTABLE), 04/16/2017, 8:49. Patients [facility], DX, CHEST SINGLE (PORTABLE), 04/22/2017, 5:39. Patients [facility], DX, CHEST SINGLE (PORTABLE), 04/28/2017, 5:40. FINDINGS: See conclusion. CONCLUSION: 1. Interval tracheostomy placement with the tip about 6 cm above the miguelina. 2. Right internal jugular dialysis catheter tip at the atriocaval junction. 3. Right internal jugular central venous catheter tip in the mid SVC. 4. Nasogastric tube tip off the inferior margin of the radiograph. 5. Bilateral lower lobe subsegmental atelectasis. Questionable small to moderate left pleural effusion. Overall, improvement of multifocal airspace opacities multiple prior chest radiographs. Dictated by: Juan Mcdaniel M.D. on 04/29/2017 at 14:48 Electronically approved by: Juan Mcdaniel M.D. on 04/29/2017 at 14:48
[2017-04-29] MEDS: THIAMINE HCL 100 MG TAB PO SCH (17:13)
[2017-04-29] MEDS ORDERED: ISOFLURANE INHAL SOLN 250 ML BTL INH ONE (17:45)
[2017-04-29] MEDS ORDERED: PROPOFOL IV EMULSION 10 MG/ML 20 ML VIAL ONE (17:45)
[2017-04-29] MEDS ORDERED: ROCURONIUM BROMIDE 10 MG/ML 5ML VIAL ONE (17:45)
--- NOTE | 2017-04-29 19:13 | Progress Note ---
DATE: April 29, 2017 PULMONARY MEDICINE PROGRESS NOTE SUBJECTIVE: Mr. Mai was seen and examined at bedside. He continues to have critical condition status. He remains responsive to external stimuli, but he is still flaccid in all extremities, unable to move. He can open and shut his eyes and grimace as response. There is 2.2 liters in, 2.6 liters out on In's and Out's. TPN at 60 mL per hour. as preoperative process. He is orally intubated. REVIEW OF SYSTEMS: No headache, no bleeding. OBJECTIVE VITAL SIGNS: Afebrile. Vital signs noted per electronic record. GENERAL: In no apparent distress, but looks very pale. He says he is not in discomfort but validity is unknown. HEENT: Normocephalic, atraumatic. NECK: Supple. Throat midline. LUNGS: Bilateral air entry, decreased breath sounds at the bases. A few rhonchi. CARDIOVASCULAR: S1 and S2 and no murmurs, rubs or gallops. ABDOMEN: Soft and nontender, postoperative. EXTREMITIES: No clubbing or cyanosis. There is still 2+ edema. INTEGUMENT: No rash, some small pigment changes to the legs. LABORATORY DATA: Per electronic record. BUN 115, creatinine 5.8, potassium 3.7, white count 23, hematocrit 25. IMPRESSION AND PLAN 1. Rising leukocytosis. Repeat CBC in the morning. Follow up closely. 2. Congestive heart failure. Plan for tracheostomy. 3. Acute respiratory failure on ventilator. 4. Acute kidney injury, today. 5. ICU polyneuropathy, severe. 6. Admit with volvulus and perforated bowel. 7. Postoperative state, status post exploratory laparotomy, reparative surgery. Job#: [id number]
[2017-04-29] MEDS ORDERED: CENTRAL TPN FORMULA 1 BAG IV SCH (20:00)
[2017-04-29] MEDS: FENTANYL CITRATE/PF 100MCG/2 ML INJ IV PRN (21:13)
[2017-04-29] MEDS: LORAZEPAM INJ 2 MG/ML VIAL IV PRN (21:13)
[2017-04-30] VITALS (50 sets, daily range): BP systolic 101–160; BP diastolic 64–100
--- NOTE | 2017-04-30 00:14 | Operative Report ---
DATE OF PROCEDURE: April 29, 2017 PREOPERATIVE DIAGNOSIS: Respiratory failure. POSTOPERATIVE DIAGNOSIS: Respiratory failure. PROCEDURE: Tracheostomy. PHYSICAL FITNESS TRAINER: None. ANESTHESIA: General. INDICATIONS AND FINDINGS: The patient is a 37-year-old male, who has been on the ventilator for about almost 3 weeks now and requires prolonged ventilatory support. At surgery, there were no abnormalities in the area of the tracheostomy tube placement. TECHNIQUE: After adequate general anesthesia with patient in supine position, the neck was prepped and draped in sterile fashion with Betadine solution. A transverse incision was made approximately 2 cm above the sternal notch, carried down through the subcutaneous tissue and platysma. Subplatysmal flaps were raised superiorly and inferiorly. Strap muscles have been divided in the midline, exposing the trachea. The trachea was well exposed and the thyroid was at the level of about the third or fourth tracheal rings. So isthmus of the thyroid did not need to be divided. The trachea was elevated and opened through the second and third tracheal rings. The trachea was spread, and the tracheal tube was pulled back and #8 Shiley tracheostomy tube was placed without difficulty. The balloon was inflated and the patient was ventilating well. Hemostasis was seen to be adequate. Tracheostomy tube was then sutured in place using 2-0 nylon. A dressing was placed around the tracheostomy tube and trach tape was used to hold it in place. The patient tolerated the procedure well. Estimated blood loss was 5 mL. There were no complications. All counts were correct. The patient was taken to the ICU in critical, but stable condition. Job#: [id number]
[2017-04-30] MEDS: FENTANYL CITRATE/PF 100MCG/2 ML INJ IV PRN ×3 (00:17→09:50)
[2017-04-30] MEDS: LORAZEPAM INJ 2 MG/ML VIAL IV PRN ×4 (00:17→14:45)
[2017-04-30] MEDS: METOCLOPRAMIDE HCL 10 MG/2ML VIAL IV SCH ×4 (00:17→18:48)
[2017-04-30] MEDS: SODIUM CHLORIDE 0.9% 250ML IRRIG IR SCH ×6 (03:30→22:37)
--- NOTE | 2017-04-30 05:39 | Progress Note ---
DATE: April 30, 2017 TIME: 4:51 a.m. OVERNIGHT: Patient underwent tracheostomy placement. REVIEW OF SYSTEMS: Unobtainable. PHYSICAL EXAMINATION VITAL SIGNS: Have been reviewed. GENERAL: A tired-appearing man resting in bed. HEENT: He has tracheostomy in place. CARDIOVASCULAR: Normal S1/S2. LUNGS: He has good air movement, mildly coarse breath sounds. ABDOMEN: He has a midline dressing in place, clean and dry. : He has a rectal tube. EXTREMITIES: He has trace edema. SKIN: Dry. PSYCHIATRIC: Unable to assess. NEUROLOGICAL: Pupils responsive to light. LABS: Reviewed. MEDICATIONS: Reviewed. ASSESSMENT: A 37-year-old man with: 1. Acute respiratory failure. 2. Acute metabolic encephalopathy. 3. Infected bowel/intra-abdominal abscess/septic shock. 4. Escherichia coli pneumonia. 5. Escherichia coli and [place] albicans infected abdominal wound. 6. Acute kidney injury/acute tubular necrosis. 7. Diabetes mellitus, type 2. 8. Hypertension. PLAN 1. Continue ventilator support by tracheostomy. 2. GI for PEG tube placement. 3. Broad-spectrum antibiotics. 4. Local wound care. 5. Continue nutrition. He is on TPN and tube feeding by NG tube. 6. He is on meropenem, vancomycin, micafungin. 7. Obtain labs this morning and obtain chest x-ray. Job#: [id number] CQ
[2017-04-30 06:10] LABS: BASOPHILS # (AUTO) 0.1 (0.0-0.1); BASOPHILS % 0.6 % (0.0-1.0); EOSINOPHILS # (AUTO) 0.2 (0.0-0.4); EOSINOPHILS % 1.1 % (0.0-6.0); HEMATOCRIT 26.7 % (38.2-49.6); HEMOGLOBIN 8.2 g/dL (14.0-18.0); LYMPHOCYTES # (AUTO) 0.8 (1.0-3.2); LYMPHOCYTES % 3.8 % (18.0-39.1); MEAN CORPUSCULAR HEMOGLOBIN 22.5 pg (28-32); MEAN CORPUSCULAR HGB CONC 30.7 g/dL (31-35); MEAN CORPUSCULAR VOLUME 73.4 fL (81-99); MONOCYTES # (AUTO) 1.8 (0.2-0.8); MONOCYTES % 8.2 % (4.4-11.3); NEUTROPHILS # (AUTO) 18.7 (2.1-6.9); NEUTROPHILS % 85.4 % (38.7-80.0); PLATELET COUNT 334 x10e3/uL (140-360); RED BLOOD COUNT 3.64 x10e6/uL (4.3-5.7); RED CELL DISTRIBUTION WIDTH 25.5 % (11.7-14.4)
--- NOTE | 2017-04-30 06:31 | Diagnostic Imaging Report ---
CHEST SINGLE (PORTABLE), 04/30/2017 4:53 AM Technique: CHEST SINGLE (PORTABLE) Comparison: 04/29/2017 Clinical history: Post tracheostomy Findings: See Impression. Left lung apex is excluded from view. Impression: 1. Lines/Tubes: Stable tracheostomy, right IJ central venous catheter over the SVC and visualized subdiaphragmatic NG tube. 2. Persistent low lung volumes with bibasilar atelectasis, aspiration or infection. Signed by: Dr Carmen Gunn MD on 04/30/2017 6:27 AM
[2017-04-30 06:40] LABS: ANION GAP 16.3 mmol/L (8-16); CALCIUM 8.7 mg/dL (8.4-10.2); CREATININE, SERUM 4.27 mg/dL (0.72-1.25); MAGNESIUM 2.4 MG/DL (1.3-2.1); POTASSIUM 3.3 mmol/L (3.5-5.1)
[2017-04-30] MEDS: CHOLESTYRAMINE 4 GM PACKET PO SCH ×2 (08:02→18:48)
[2017-04-30] MEDS: HEPARIN SOD (PORCINE) 5,000 UNIT/ML VIAL SC SCH ×2 (08:02→21:55)
[2017-04-30] MEDS: THIAMINE HCL 100 MG TAB PO SCH (08:02)
[2017-04-30] MEDS: MULTIVITAMINS 120ML BOTTLE PO SCH (08:02)
[2017-04-30] MEDS: PANTOPRAZOLE 40 MG 10ML VIAL IV SCH ×2 (08:02→21:55)
[2017-04-30] MEDS: ACETAMINOPHEN 325 MG TAB PO PRN (08:02)
[2017-04-30] MEDS: BALSAM PERU/CASTOR OIL 60 GM OINT...G. TP SCH ×2 (08:02→17:59)
[2017-04-30] MEDS: MEROPENEM 500MG 500 MG in WATER STERILE 10ML VIAL 10 ML IV SCH ×2 (08:03→21:55)
[2017-04-30 08:48] LABS: ANISOCYTOSIS SLIGHT; BAND NEUTROPHILS % (MANUAL) 1 %; HYPOCHROMASIA SLIGHT; LYMPHOCYTES % (MANUAL) 2 % (19-48); MONOCYTES % (MANUAL) 8 % (3.4-9.0); NEUTROPHILS % (MANUAL) 87 % (40-74); PLATELET ESTIMATE ADEQUATE; PLATELET MORPHOLOGY COMMENT NORMAL; POIKILOCYTOSIS SLIGHT; RBC MORPHOLOGY COMMENT NORMAL
[2017-04-30] MEDS: DEXTROSE 20% 500 ML IV SCH ×2 (11:20→20:17)
[2017-04-30] MEDS ORDERED: MICAFUNGIN SODIUM 100 ML IV ONE (12:00)
--- NOTE | 2017-04-30 14:45 | Progress Note ---
DATE: April 30, 2017 PULMONARY MEDICINE PROGRESS NOTE SUBJECTIVE: Mr. Mai was seen and examined today. Patient was noted to have more fevers. Patient having more tachypnea. Patient with increased work of breathing as well. Heart rate higher, in 120s and 130s sometimes. Remains intubated via tracheostomy and on ventilator. Patient was started on propofol sedation as well as given Ativan and fentanyl. REVIEW OF SYSTEMS: Cannot get as he is intubated. OBJECTIVE VITAL SIGNS: Still with fevers; 102.6 was the temperature maximum. Other vitals semi-unstable per record although he is still off pressors. GENERALLY: Calm on sedation. HEENT: Normocephalic, atraumatic. NECK: Supple. Throat midline. LUNGS: Bilateral air entry, a few rhonchi. CARDIOVASCULAR: S1 and S2. No murmurs, rubs or gallops. ABDOMINAL: Soft, nontender. EXTREMITIES: No clubbing, no cyanosis. There is 1+ arm edema, although very minimal leg edema which is largely improved. INTEGUMENT: No rash. No purpura. LABS: Potassium 3.3, BUN 103, creatinine 4.3. White count 22, hematocrit 26, platelets 334. IMPRESSION AND PLAN 1. Acute respiratory failure. 2. Chronic respiratory failure status post tracheostomy. 3. Dysphagia, status post nasogastric tube. 4. New fevers, concern for line versus total parenteral nutrition-related sepsis. 5. Postoperative ileus, starting to tolerate feeds now. 6. Critical illness, polyneuropathy, severe. 7. Encephalopathy, multifactorial, toxic-metabolic included. 8. Treat as peritonitis. 9. Treat for possible line or total parenteral nutrition-related infection. 10. Admit with volvulus and bowel perforation with bowel necrosis. Continue current treatment. Will follow up. Hemodialysis today. Repeat white count tomorrow. TPN will be held for now. We have replaced it by D20. Will consider weaning off the dextrose by tomorrow. Continue tube feeds, which are at goal, and so far we are not having feeding tube residuals. Patient remains in critical condition. Antibiotics are continued at this time. Lines will be re-sited if possible, and renal team is considering a line holiday. Job#: [id number] EV
--- NOTE | 2017-04-30 16:49 | Progress Note ---
DATE: April 30, 2017 at 4:00 p.m. ICU: Room 194. DIAGNOSES 1. Sepsis. 2. Respiratory failure. 3. Renal failure. 4. Acute liver failure. 5. Diffuse metabolic encephalopathy. VITAL SIGNS: Blood pressure 131/81, pulse 135, temperature 102.6. The patient has been sedated with propofol. He is on hemodialysis. Neuro status has been unchanged. Now, he is asleep because of the sedation. Pupils are small, sluggish. He has already tracheostomy. LABORATORY DATA: Reviewed. The CBC shows white count 21,800, lower than 22,000 yesterday. Hemoglobin 8.2, hematocrit 26.7, platelets 334,000. Chemistry: Sodium, potassium chloride normal. BUN 103, elevated, creatinine 4.27 elevated. Estimated GFR 16. Glucose 116. calcium 8.7, magnesium 2.4. The patient is still on antibiotics. We have discussed with the family. According to his mother and father, when he is off propofol he becomes a little restless, but he is able to follow instructions and moving the head. When asked by family questions, he moves his head no. He seems to have started following very simple commands. Will reevaluate again when he is off the propofol. Job#: [id number]
[2017-04-30] MEDS: PROPOFOL IV EMULSION 10MG/ML 100 ML IV PRN (20:33)
[2017-05-01] VITALS (93 sets, daily range): BP systolic 94–165; BP diastolic 62–104
[2017-05-01] MEDS: METOCLOPRAMIDE HCL 10 MG/2ML VIAL IV SCH ×4 (00:30→17:20)
[2017-05-01] MEDS: PROPOFOL IV EMULSION 10MG/ML 100 ML IV PRN ×4 (01:54→22:25)
[2017-05-01] MEDS: SODIUM CHLORIDE 0.9% 250ML IRRIG IR SCH ×6 (04:27→23:30)
[2017-05-01] MEDS: DEXTROSE 20% 500 ML IV SCH ×3 (04:27→21:12)
[2017-05-01 06:00] LABS: BASOPHILS # (AUTO) 0.1 (0.0-0.1); BASOPHILS % 0.8 % (0.0-1.0); EOSINOPHILS # (AUTO) 0.6 (0.0-0.4); EOSINOPHILS % 3.5 % (0.0-6.0); HEMATOCRIT 26.2 % (38.2-49.6); LYMPHOCYTES % 6.2 % (18.0-39.1); MEAN CORPUSCULAR HEMOGLOBIN 22.8 pg (28-32); MEAN CORPUSCULAR HGB CONC 30.2 g/dL (31-35); MEAN CORPUSCULAR VOLUME 75.7 fL (81-99); MONOCYTES # (AUTO) 1.6 (0.2-0.8); NEUTROPHILS # (AUTO) 12.4 (2.1-6.9); NEUTROPHILS % 78.9 % (38.7-80.0); PLATELET COUNT 324 x10e3/uL (140-360); RED BLOOD COUNT 3.46 x10e6/uL (4.3-5.7); RED CELL DISTRIBUTION WIDTH 25.5 % (11.7-14.4)
[2017-05-01 06:04] LABS: HEMOGLOBIN 7.9 g/dL (14.0-18.0)
[2017-05-01 06:33] LABS: ALBUMIN/GLOBULIN RATIO 0.4 (0.8-2.0); ANION GAP 13.5 mmol/L (8-16); CALCIUM 8.2 mg/dL (8.4-10.2); CREATININE, SERUM 2.88 mg/dL (0.72-1.25); MAGNESIUM 1.9 MG/DL (1.3-2.1); PHOSPHORUS 5.4 MG/DL (2.3-4.7); POTASSIUM 3.5 mmol/L (3.5-5.1)
--- NOTE | 2017-05-01 07:44 | Diagnostic Imaging Report ---
PROCEDURE: A single AP view of the chest. COMPARISON: Patients [facility], DX, CHEST SINGLE (PORTABLE), 04/30/2017, 5:29. INDICATIONS: RESPIRATORY FAILURE FINDINGS: Lines/tubes: There are 2 right IJ lines. Tracheostomy tube is present. NG tube extends below the diaphragm. Lungs: There are patchy areas of focal atelectasis, most prominent in the left lung base. Pleura: There is no pleural effusion or pneumothorax. Heart and mediastinum: The heart and the mediastinum are unremarkable. Bones: No acute bony abnormality. IMPRESSION: Patchy areas of atelectasis. Laurent Francois D.O. Dictated by: Laurent Francois D.O. on 05/01/2017 at 7:52 Electronically approved by: Laurent Francois D.O. on 05/01/2017 at 7:52
[2017-05-01] MEDS: MULTIVITAMINS 120ML BOTTLE PO SCH (09:00)
[2017-05-01] MEDS: CHOLESTYRAMINE 4 GM PACKET PO SCH ×2 (09:00→17:20)
[2017-05-01] MEDS: PANTOPRAZOLE 40 MG 10ML VIAL IV SCH ×2 (09:00→21:06)
[2017-05-01] MEDS: THIAMINE HCL 100 MG TAB PO SCH (09:00)
[2017-05-01] MEDS: HEPARIN SOD (PORCINE) 5,000 UNIT/ML VIAL SC SCH (09:00)
[2017-05-01] MEDS: VANCOMYCIN 750MG/NS 150ML IVPB 150 ML IV SCH (09:00)
[2017-05-01] MEDS ORDERED: MYCAFUNGIN SODIUM 100 MG/100 ML BAG IV SCH (09:00)
[2017-05-01] MEDS: BALSAM PERU/CASTOR OIL 60 GM OINT...G. TP SCH ×2 (09:00→17:20)
[2017-05-01] MEDS: MEROPENEM 500MG 500 MG in WATER STERILE 10ML VIAL 10 ML IV SCH ×2 (09:30→21:07)
[2017-05-01] MEDS ORDERED: LIDOCAINE HCL 1% LOCAL INJ 20 ML VIAL ONE (10:27)
[2017-05-01] MEDS ORDERED: MULTIVITAMINS 5 ML LIQUID ONE (11:48)
[2017-05-01] MEDS: MICAFUNGIN SODIUM 50 ML IV SCH (12:02)
[2017-05-01] MEDS: MULTIVITAMINS 5 ML LIQUID PO SCH (12:30)
--- NOTE | 2017-05-01 13:30 | Diagnostic Imaging Report ---
PROCEDURE:NON-TUNNELLED CVC CATH REPLACE COMPARISON:None. INDICATIONS: Routine exchange COMPLICATIONS: None MEDICATIONS: 1% Xylocaine BLOOD LOSS: None PROCEDURE: Procedure was performed following sterile preparation at the bedside. The retention sutures of the indwelling 7 [place]ian right IJ central line were cut. A 0.035 inch Amplatz Super Stiff wire was placed through the central lumen. A new 7 [place] Arrow triple-lumen catheter was then placed [id number]. Catheter was secured to the skin with 2-0 nylon. CONCLUSION: Successful exchange of a central venous catheter Laurent Francois D.O. Dictated by: Laurent Francois D.O. on 05/01/2017 at 13:38 Electronically approved by: Laurent Francois D.O. on 05/01/2017 at 13:38
--- NOTE | 2017-05-01 13:33 | Diagnostic Imaging Report ---
PROCEDURE:NON-TUNNELLED CVC CATH REPLACE COMPARISON:None. INDICATIONS: Routine exchange COMPLICATIONS: None MEDICATIONS: 1% Xylocaine BLOOD LOSS: None PROCEDURE: Procedure was performed at the bedside under sterile conditions. The 12 Greek indwelling temporary Christiano hemodialysis catheter was removed over a 0.035 inch Amplatz Super Stiff wire. A new 12 Greek 20 cm long Christiano catheter was then placed over the wire. This new catheter was secured to the skin with 2-0 Ethilon. A confirmatory film was ordered. CONCLUSION: Successful catheter exchange. Laurent Francois D.O. Dictated by: Laurent Francois D.O. on 05/01/2017 at 13:40 Electronically approved by: Laurent Francois D.O. on 05/01/2017 at 13:40
--- NOTE | 2017-05-01 13:42 | Progress Note ---
DATE: May 01, 2017 PULMONARY MEDICINE PROGRESS NOTE SUBJECTIVE: Mr. Mai was seen and examined at bedside. He continues to be intubated. He has high work of breathing. Patient with tracheostomy in place attaching him to ventilator. Patient has his dialysis in, triple lumen. Central line was exchanged yesterday. Patient continues with okay urine output. Renal specialists are monitoring. Liters in 2.8, liters out 1.5. Liters out with dialysis yesterday 2.5. Patient is not currently on sedation now but was on propofol 30 mcg earlier. REVIEW OF SYSTEMS: Cannot get as he is not talking. OBJECTIVE VITAL SIGNS: Afebrile. Vital signs noted per electronic record. GENERALLY: No acute distress, in bed. Looks chronic. HEENT: Normocephalic, atraumatic. NECK: Supple. Throat midline. LUNGS: Bilateral air entry, a few rhonchi. CARDIOVASCULAR: S1 and S2. No murmurs, rubs or gallops. ABDOMINAL: Soft, nontender. EXTREMITIES: No clubbing, no cyanosis. There is no lower extremity edema, although there is still 1+ upper extremity edema. INTEGUMENT: No rash. No purpura. LABS: Potassium 3.5, BUN 63, creatinine 2.9. White count 16, hematocrit 26, platelets 324. Albumin is 2.0. IMPRESSION AND PLAN 1. Acute respiratory failure. 2. Chronic respiratory failure status post tracheostomy. 3. Dysphagia with nasogastric tube in place. 4. Acute renal failure, partially recovered. 5. Shock, resolved. 6. Acute liver failure, resolved. 7. Encephalopathy, improving. He was awake a few days ago. 8. Remnant tachypnea, excessive work of breathing. 9. Intensive care unit polyneuropathy. 10. Admit with peritonitis due to multiple issues status post surgery. Continue current treatment. Ventilator support to be continued. Keep him sedated or at least do measures to decrease his work of breathing, which is still very high. Patient will remain in the ICU at this time. Renal specialists will hold dialysis. Patient will have continued nutrition which is tolerated by feeding tube. Will follow along closely. Critical condition. Repeat labs in the morning and likely for PEG tube tomorrow. Job#: [id number] EV
--- NOTE | 2017-05-01 13:44 | Diagnostic Imaging Report ---
PROCEDURE: A single AP view of the chest. COMPARISON: None. INDICATIONS: LINE PLACEMENT FINDINGS: Lines/tubes: There are 2 right IJ lines. Tracheostomy tube unchanged. NG tube extends below the diaphragm. Lungs: Bibasilar atelectasis. Pleura: There is a small right pleural effusion. Heart and mediastinum: The heart and the mediastinum are unremarkable. Bones: No acute bony abnormality. IMPRESSION: 1. Bibasilar atelectasis with a small right pleural effusion. 2. Status post right IJ central line exchange. Laurent Francois D.O. Dictated by: Laurent Francois D.O. on 05/01/2017 at 13:52 Electronically approved by: Laurent Francois D.O. on 05/01/2017 at 13:52
[2017-05-01] MEDS ORDERED: ALBUTEROL/IPRATROPIUM 3 ML NEB NEB ONE (14:30)
[2017-05-01] MEDS ORDERED: HEPARIN SOD (PORCINE) 1000 UNIT/ML SDV ONE (14:36)
[2017-05-01 15:16] LABS: HEMATOCRIT 24.6 % (38.2-49.6)
[2017-05-01 15:21] LABS: HEMOGLOBIN 7.6 g/dL (14.0-18.0)
[2017-05-01] MEDS ORDERED: DIATRIZOATE MEGL/DIATRIZOA SOD 30 ML BTL PO ONE (19:44)
[2017-05-01] MEDS ORDERED: SODIUM CHLORIDE 0.9% 250ML 250 ML IV ONE (20:00)
[2017-05-01] MEDS: CLONIDINE HCL 0.1 MG/24 HR 1 EA PATCH TOP SCH (22:00)
--- NOTE | 2017-05-01 23:28 | Consultation ---
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 Patient consent was obtained today for possibility of a PEG placement. He is on the trach right now. OTHER MEDICAL PROBLEM: Per record is significant for history of gastric bypass, history of lap band. ALLERGIES: NONE. SOCIAL HISTORY: No alcohol use. FAMILY HISTORY: Noncontributory. REVIEW OF SYSTEMS: Otherwise is unobtainable. PHYSICAL EXAMINATION: GENERAL: Patient is lying in bed, noncommunicative. VITAL SIGNS: Afebrile. HEAD, EYES, EARS, NOSE, AND THROAT: Normocephalic, atraumatic. NECK: NG tube is in place. Trach in place. HEART: Regular. ABDOMEN: Soft. EXTREMITIES: No clubbing. LAB VALUES: As of this evening, hemoglobin is 7.6 with hematocrit 24.6. BUN of 60, creatinine of 2.88. PT was 14.8 two days ago. IMPRESSION: 1. Oropharyngeal dysphagia. Patient will need to have a percutaneous endoscopic gastrostomy tube. 2. Status post bowel perforations. 3. Respiratory failure, status post tracheostomy. RECOMMENDATIONS: Will attempt to do EGD with PEG tomorrow. Follow labs tomorrow. Discussed with the family at the bedside. Job#: [id number] cc:RADHA HOFFMAN MD
[2017-05-02] VITALS (50 sets, daily range): BP systolic 103–137; BP diastolic 67–87
[2017-05-02] MEDS: PROPOFOL IV EMULSION 10MG/ML 100 ML IV PRN ×7 (01:50→20:59)
[2017-05-02] MEDS: SODIUM CHLORIDE 0.9% 250ML IRRIG IR SCH ×6 (02:54→23:58)
[2017-05-02 05:46] LABS: BASOPHILS # (AUTO) 0.1 (0.0-0.1); BASOPHILS % 0.6 % (0.0-1.0); EOSINOPHILS # (AUTO) 0.9 (0.0-0.4); EOSINOPHILS % 5.7 % (0.0-6.0); HEMATOCRIT 29.1 % (38.2-49.6); LYMPHOCYTES # (AUTO) 0.7 (1.0-3.2); LYMPHOCYTES % 4.5 % (18.0-39.1); MEAN CORPUSCULAR HEMOGLOBIN 23.7 pg (28-32); MEAN CORPUSCULAR HGB CONC 30.9 g/dL (31-35); MEAN CORPUSCULAR VOLUME 76.6 fL (81-99); MONOCYTES # (AUTO) 1.4 (0.2-0.8); MONOCYTES % 8.7 % (4.4-11.3); NEUTROPHILS # (AUTO) 13.1 (2.1-6.9); NEUTROPHILS % 79.8 % (38.7-80.0); PLATELET COUNT 264 x10e3/uL (140-360); RED CELL DISTRIBUTION WIDTH 24.6 % (11.7-14.4)
[2017-05-02] MEDS: METOCLOPRAMIDE HCL 10 MG/2ML VIAL IV SCH ×5 (05:52→23:58)
[2017-05-02 06:03] LABS: ALBUMIN 2.2 g/dL (3.5-5.0); ALBUMIN/GLOBULIN RATIO 0.4 (0.8-2.0); ANION GAP 15.7 mmol/L (8-16); CALCIUM 8.4 mg/dL (8.4-10.2); CREATININE, SERUM 3.34 mg/dL (0.72-1.25); MAGNESIUM 1.9 MG/DL (1.3-2.1); PHOSPHORUS 7.8 MG/DL (2.3-4.7); POTASSIUM 3.7 mmol/L (3.5-5.1)
[2017-05-02] MEDS: DEXTROSE 20% 500 ML IV SCH ×2 (06:07→13:03)
--- NOTE | 2017-05-02 07:43 | Diagnostic Imaging Report ---
This report includes an Addendum and supersedes previous reports for this exam. PROCEDURE: CT ABDOMEN WITHOUT CONTRAST TECHNIQUE: The abdomen was scanned utilizing a multidetector helical scanner from the diaphragm to the iliac crest. No intravenous contrast was administered. Oral Gastrografin was administered via the enteric tube. Coronal and sagittal multiplanar reformations were obtained. COMPARISON: Chest radiograph 05/01/2017. CT abdomen and pelvis without contrast 04/08/2017 INDICATIONS: ELEVATED LIVER ENZYMES FINDINGS: ABSENCE OF INTRAVENOUS CONTRAST DECREASES SENSITIVITY FOR DETECTION OF FOCAL LESIONS AND VASCULAR PATHOLOGY. LOWER THORAX: Left lower lobe consolidation with multiple air bronchograms. Right lower lobe atelectasis.. HEPATOBILIARY: The liver is enlarged, measuring 20 cm in craniocaudal span. No focal hepatic lesion or intrahepatic biliary ductal dilatation, though evaluation of the parenchyma is limited secondary to beam hardening artifact from the patients arms at his side as well as from dense contrast material within the stomach. SPLEEN: The spleen is mildly enlarged, measuring approximately 14 cm in craniocaudal span. No focal splenic lesion. PANCREAS: No focal masses or ductal dilatation. ADRENALS: No adrenal nodules. KIDNEYS: No hydronephrosis, stones, or solid mass lesions. PERITONEUM / RETROPERITONEUM: Trace ascites along the inferior margin of the right hepatic lobe. No pneumoperitoneum. LYMPH NODES: No upper retroperitoneal or mesenteric lymphadenopathy. VESSELS: Limited evaluation in the absence of intravenous contrast. The abdominal aorta is non-aneurysmal. An infrarenal IVC filter is noted. GI TRACT: Postsurgical changes of the stomach with resolution of previously noted dilated loops of small bowel. A serpiginous high attenuation focus extends anterior to the distal stomach best appreciated on series 2 image 26, felt to represent radiopaque surgical material rather than leak in the absence of significant ascites or pneumoperitoneum. BONES AND SOFT TISSUES: Postsurgical changes of the anterior abdominal wall. No acute osseous abnormalities. IMPRESSION: Nonspecific mild hepatosplenomegaly. No focal hepatic mass lesion or biliary dilatation. Post surgical changes of the stomach and proximal small bowel, with interval resolution of small bowel dilatation. Small focus of radiopaque material anterior to the distal stomach likely represents radiopaque surgical material rather than contrast leak in the absence of significant ascites or pneumoperitoneum. Dictated by: Flip Leiva M.D. on 05/02/2017 at 7:50 Electronically approved by: Flip Leiva M.D. on 05/02/2017 at 7:50 ADDENDUM: The following should be included in the impression above: Left lower lobe aspiration pneumonitis or pneumonia. Right lower lobe subsegmental atelectasis. Dictated by: Flip Leiva M.D. on 05/02/2017 at 11:20 Electronically approved by: Flip Leiva M.D. on 05/02/2017 at 11:20
[2017-05-02] MEDS: MULTIVITAMINS 5 ML LIQUID PO SCH (09:00)
[2017-05-02] MEDS ORDERED: MICAFUNGIN SODIUM 50 MG/50 ML BAG IV SCH (09:00)
[2017-05-02] MEDS: CHOLESTYRAMINE 4 GM PACKET PO SCH ×2 (09:00→17:00)
[2017-05-02] MEDS: THIAMINE HCL 100 MG TAB PO SCH (09:00)
[2017-05-02] MEDS: BALSAM PERU/CASTOR OIL 60 GM OINT...G. TP SCH ×2 (09:43→17:18)
[2017-05-02] MEDS: MEROPENEM 500MG 500 MG in WATER STERILE 10ML VIAL 10 ML IV SCH (09:43)
[2017-05-02] MEDS: PANTOPRAZOLE 40 MG 10ML VIAL IV SCH ×2 (09:43→21:03)
--- NOTE | 2017-05-02 11:11 | Diagnostic Imaging Report ---
PROCEDURE: CHEST SINGLE (PORTABLE) COMPARISON: Chest radiograph 05/01/2017. INDICATIONS: RESPIRATORY FAILURE FINDINGS: Tracheostomy, enteric tube, right internal jugular low flow and high flow central venous catheters are unchanged in position. Worsening left lower lobe airspace disease with loss of the hemidiaphragmatic contour. Subsegmental atelectasis in the right lower lobe. Heart size is normal. No overt pulmonary edema. CONCLUSION: Stable position of support lines and tubes. Worsening aspiration or pneumonia in the left lower lobe. Subsegmental atelectasis in the right lung base. Dictated by: Flip Leiva M.D. on 05/02/2017 at 11:19 Electronically approved by: Flip Leiva M.D. on 05/02/2017 at 11:19
[2017-05-02 11:19] LABS: INR 1.3; PROTHROMBIN TIME 14.9 seconds (11.9-14.5)
[2017-05-02] MEDS: MICAFUNGIN SODIUM 50 ML IV SCH (13:03)
--- NOTE | 2017-05-02 14:48 | Progress Note ---
DATE: May 02, 2017 PULMONARY MEDICINE PROGRESS NOTE SUBJECTIVE: Mr. Mai was seen and examined at bedside. The patient continues to have intubated state. On propofol for comfort and D10 at 40 mL per hour. He is tolerating tube feeds as of yesterday. Will be on hold today for procedure. The urine output was 900 mL recorded, 2.5 L in and 5.7 L out. REVIEW OF SYSTEMS: Cannot get as he is intubated. OBJECTIVE VITAL SIGNS: Afebrile. Vital signs noted per electronic record. GENERALLY: No acute distress, alert and calm. HEENT: Normocephalic, atraumatic. NECK: Supple. Throat midline. LUNGS: Bilateral air entry, a few rhonchi bilaterally. CARDIOVASCULAR: S1 and S2. No murmurs, rubs or gallops. ABDOMINAL: Soft, nontender. EXTREMITIES: No clubbing, no cyanosis. There is still some arm edema, although legs are now mostly without edema. INTEGUMENT: No rash. No purpura. LABS: 16 white count, 29 hematocrit, 264 platelets, 2.7 potassium, 84 BUN, 3.3 creatinine. Alkaline phosphatase 153. IMPRESSION AND PLAN 1. Acute respiratory failure. 2. Chronic respiratory failure status post tracheostomy. 3. Dysphagia. 4. Peritonitis, severe, with multiorgan dysfunction. 5. Status post volvulus with bowel necrosis and 2-cm perforation. 1. Acute kidney injury, slowly improving, trying to recover. 2. Atelectasis, worsening on x-ray. He has residual white count and some fevers. We will go ahead and do bronchoscopy to ensure that these do not confound our assessment. CT of the abdomen and pelvis was done and noted. Patient will have further assessment. He is going for PEG today. Afterwards, resume feeding when cleared by GI. Will follow along closely. Job#: [id number]
--- NOTE | 2017-05-02 16:21 | Diagnostic Imaging Report ---
PROCEDURE:X-RAY ABDOMEN - KUB COMPARISON:Chest radiograph 05/02/2016 INDICATIONS:Dobbhoff tube placement today FINDINGS: Limited radiograph for tube placement purposes. Motion degraded study. Dobbhoff tube tip overlies the expected location of the gastric body. IVC filter projects over the medial right abdomen. No abnormally distended air filled loops of bowel within the visualized abdomen. Gas is present within the colon. Please refer to same day chest radiograph for lung findings including left lower lobe airspace disease. Osseous structures are grossly intact. CONCLUSION: Dobbhoff tube tip overlies the expected gastric body. Dictated by: Romario Fernandes M.D. on 05/02/2017 at 16:29 Electronically approved by: Romario Fernandes M.D. on 05/02/2017 at 16:29
--- NOTE | 2017-05-02 16:55 | Progress Note ---
DATE: May 02, 2017 Mr. Mai remains in the ICU. He remains very ill. PHYSICAL EXAMINATION GENERAL: He is sedated. Vitals are stable. He is still running fever. T-max was 102.6 on April 30, 2017, and 100.2 on May 01, 2017. The patient looks comfortable. HEENT: Nonicteric. CHEST: A few rhonchi. COR: S1 and S2. ABDOMEN: Soft. Bowel sounds present. Cultures remain negative. CT scan which was done showed left lower pneumonia and postsurgical changes. Dr. Marx is aware of the findings on the CT scan of the abdomen. IMPRESSION AND PLAN: Pneumonia. Continue with antibiotic. He underwent bronchoscopy. Cultures are still pending. Will follow with you. Job#: [id number]
--- NOTE | 2017-05-02 22:46 | Diagnostic Imaging Report ---
CHEST SINGLE (PORTABLE), 05/02/2017 10:04 PM Technique: CHEST SINGLE (PORTABLE) Comparison: 05/02/2017 Clinical history: Fever Findings: See below Impression: Limited by portable technique and rightward rotation. 1. Lines/Tubes: Removal of NG tube and placement of subdiaphragmatic enteric feeding tube. Stable tracheostomy, right IJ central venous catheters over the SVC (tips poorly seen). 2. Persistent bibasilar opacity. This is increased on the left which may be due to aspiration/lobar atelectasis and/or infection. Cannot exclude a small amount of underlying pleural fluid. Signed by: Dr Carmen Gunn MD on 05/02/2017 10:42 PM
[2017-05-03] VITALS (61 sets, daily range): BP systolic 92–136; BP diastolic 61–90
[2017-05-03] MEDS: PROPOFOL IV EMULSION 10MG/ML 100 ML IV PRN ×7 (02:37→21:22)
[2017-05-03] MEDS: DEXTROSE 20% 500 ML IV SCH ×3 (03:59→14:45)
[2017-05-03] MEDS: SODIUM CHLORIDE 0.9% 250ML IRRIG IR SCH ×6 (03:59→22:46)
[2017-05-03] MEDS: METOCLOPRAMIDE HCL 10 MG/2ML VIAL IV SCH ×3 (05:54→17:15)
[2017-05-03 06:01] LABS: BASOPHILS # (AUTO) 0.1 (0.0-0.1); BASOPHILS % 0.5 % (0.0-1.0); EOSINOPHILS % 5.5 % (0.0-6.0); HEMATOCRIT 30.5 % (38.2-49.6); HEMOGLOBIN 9.5 g/dL (14.0-18.0); LYMPHOCYTES # (AUTO) 0.8 (1.0-3.2); LYMPHOCYTES % 4.1 % (18.0-39.1); MEAN CORPUSCULAR HEMOGLOBIN 23.6 pg (28-32); MEAN CORPUSCULAR HGB CONC 31.1 g/dL (31-35); MEAN CORPUSCULAR VOLUME 75.7 fL (81-99); MONOCYTES # (AUTO) 1.4 (0.2-0.8); MONOCYTES % 7.6 % (4.4-11.3); NEUTROPHILS # (AUTO) 15.5 (2.1-6.9); NEUTROPHILS % 81.8 % (38.7-80.0); PLATELET COUNT 296 x10e3/uL (140-360); RED BLOOD COUNT 4.03 x10e6/uL (4.3-5.7)
[2017-05-03 06:24] LABS: ALBUMIN 2.3 g/dL (3.5-5.0); ALBUMIN/GLOBULIN RATIO 0.4 (0.8-2.0); CALCIUM 8.5 mg/dL (8.4-10.2); CREATININE, SERUM 3.09 mg/dL (0.72-1.25); MAGNESIUM 1.9 MG/DL (1.3-2.1); PHOSPHORUS 7.9 MG/DL (2.3-4.7)
[2017-05-03] MEDS: BALSAM PERU/CASTOR OIL 60 GM OINT...G. TP SCH ×2 (08:00→16:42)
[2017-05-03] MEDS: LORAZEPAM INJ 2 MG/ML VIAL IV PRN ×4 (08:11→22:45)
[2017-05-03 08:41] LABS: ANISOCYTOSIS MODERATE; PLATELET ESTIMATE ADEQUATE; PLATELET MORPHOLOGY COMMENT NORMAL; RBC MORPHOLOGY COMMENT NORMAL
--- NOTE | 2017-05-03 09:33 | Operative Report ---
DATE OF PROCEDURE: May 02, 2017 OPERATIVE PROCEDURE: Flexible bronchoscopy. INDICATION: Worsening left lung atelectasis. ANESTHESIA: Per anesthesiology. CONSENT: Informed consent from mother. COMPLICATIONS: None. ESTIMATED BLOOD LOSS: None. FINDINGS: Bronchoscope inserted into the tracheostomy after the cannula was removed. Patient had preoxygenation. The airways were inspected. The right side was mostly devoid of secretions. However, left lower lung with full plugging with moderately thick purulent secretions. These secretions were suctioned out without plugging the channel. Washes were done showing no re-pooling of secretions. Washings were done of other airways showing no pooling of secretions in those other airways as well. Afterwards, the procedure was terminated and the patient was hooked back to the ventilator via the tracheostomy. ASSESSMENT: Mucous plugging, left lower lung. RECOMMENDATIONS: Continue treatment at this time. No cultures were sent. Job#: [id number] GE MTDD
--- NOTE | 2017-05-03 10:00 | Diagnostic Imaging Report ---
PROCEDURE: A single AP view of the chest. COMPARISON: Patients [facility], DX, CHEST SINGLE (PORTABLE), 05/02/2017, 22:12. INDICATIONS: RESP FAILURE FINDINGS: Lines/tubes: Tracheostomy tube and 2 right IJ central lines are in unchanged positions. Dobbhoff feeding tube with its tip below the diaphragm. Lungs: Central pulmonary vascular congestion. Left lower lobe basilar opacity may represent aspiration pneumonitis. Pleura: Small left pleural effusion. Heart and mediastinum: The heart and the mediastinum are unremarkable. Bones: No acute bony abnormality. IMPRESSION: 1. Mild central pulmonary vascular congestion. 2. Persistent left lower lobe basilar opacity. Laurent Francois D.O. Dictated by: Laurent Francois D.O. on 05/03/2017 at 10:08 Electronically approved by: Laurent Francois D.O. on 05/03/2017 at 10:08
[2017-05-03] MEDS ORDERED: MEROPENEM 500MG 500 MG in SODIUM CHLORIDE 0.9% 50ML 50 ML IV SCH ×2 (11:00→17:00)
[2017-05-03] MEDS: CHOLESTYRAMINE 4 GM PACKET PO SCH ×2 (12:27→17:15)
[2017-05-03] MEDS: THIAMINE HCL 100 MG TAB PO SCH (12:27)
[2017-05-03] MEDS: MULTIVITAMINS 5 ML LIQUID PO SCH (12:27)
[2017-05-03] MEDS: PANTOPRAZOLE 40 MG 10ML VIAL IV SCH ×2 (12:27→22:37)
[2017-05-03] MEDS: MEROPENEM 500 MG VIAL IV SCH ×2 (12:41→22:37)
[2017-05-03] MEDS: WATER STERILE 10 ML VIAL IV SCH ×2 (12:41→22:37)
[2017-05-03] MEDS: VANCOMYCIN 750MG/NS 150ML IVPB 150 ML IV SCH (13:00)
[2017-05-03] MEDS: MICAFUNGIN SODIUM 50 ML IV SCH (13:00)
--- NOTE | 2017-05-03 14:32 | Progress Note ---
DATE: May 03, 2017 PULMONARY MEDICINE PROGRESS NOTE SUBJECTIVE: Mr. Mai was seen and examined at bedside. Patient remains on ventilator. Tracheostomy in place. He has a Dobbhoff NG tube that is currently in place right. now. Patient on propofol 55 mcg per minute. Patient with tube feeds that were halted yesterday night due to residuals 140 mL. He is on D20 at 60 mL per hour. Urine output is 700 mL so far over 6 hours. REVIEW OF SYSTEMS: Cannot get as he is not talking. OBJECTIVE VITAL SIGNS: Afebrile. Vital signs noted per electronic record. GENERALLY: No acute distress, but he is sedated, on ventilator. HEENT: Normocephalic, atraumatic. NECK: Supple. Throat midline. LUNGS: Bilateral air entry, a few rhonchi. CARDIOVASCULAR: S1 and S2. No murmurs, rubs or gallops. ABDOMINAL: Soft, nontender. EXTREMITIES: No clubbing, no cyanosis. There is still the small edema to the upper extremities. INTEGUMENT: No rash. No purpura. LABS: BUN 92, creatinine 3.1. White count 19, hematocrit 31, platelets 296. IMPRESSION AND PLAN 1. Acute respiratory failure on ventilator. 2. Chronic respiratory failure status post tracheostomy. 3. Acute renal failure, significantly improving. 4. Severe protein calorie malnutrition and visible atrophy. 5. Treat for peritonitis due to necrotic gut and perforation. 6. Encephalopathy, toxic-metabolic. 7. Severe intensive care unit polyneuropathy. Continue current treatment. Will follow up after sedation holiday today and see how awake he can get. Patient will remain with tracheostomy at this time. Dobbhoff feeding tube is in place and will resume feeding. If residuals are high, we need to resume TPN. Continue following urine output. He went for filtration today. Hopefully with time the patient will continue renal recovery as he has better clearance of toxins. Will follow along closely. Job#: [id number] NICHO
[2017-05-03] MEDS: FENTANYL CITRATE/PF 100MCG/2 ML INJ IV PRN ×2 (16:42→22:40)
--- NOTE | 2017-05-03 16:45 | Progress Note ---
DATE: May 03, 2017 NEUROLOGICAL PROGRESS NOTE DIAGNOSIS 1. Sepsis. 2. Respiratory failure, resolved. 3. Renal failure, resolved. 4. Acute liver failure, resolved. 5. Severe diffuse metabolic encephalopathy. VITAL SIGNS: Blood pressure 110/78, pulse 114, temperature 100. SUBJECTIVE: Patient is still intubated, sedated on propofol. We stopped the propofol for almost 20 minutes. His respiration became more labored. His family tried to stimulate. He does not follow any commands, and even to pain stimulation there is not any withdrawal in either the arms or legs. PHYSICAL EXAMINATION: Pupils are both small and sluggish. Doll's movements are present but are depressed. Corneal reflexes are present but depressed. Limbs flaccid. Plantar stimulation, no response. LABORATORY WORKUP: The CBC shows a white count 18,900, which is higher than yesterday. Hemoglobin is 9.5, hematocrit 30.5, platelets 206,000. Sodium, potassium, chloride in the normal range. BUN 92, creatinine 3.09, elevated. Liver enzymes are elevated but are less than before. Glucose 116. STATUS: Unchanged. My concern is that he is losing a lot of weight and has a lot of muscle wasting in the arms and legs. Tendon reflexes are absent. My concern is the possibility of development of acute critical illness, neuropathy-myopathy. I advised the family to continue to stimulate him whenever he is off the respirator. According to them, there has been some response in the last 2 or 3 days. Job#: [id number] EV
[2017-05-03] MEDS ORDERED: CENTRAL TPN FORMULA 1 BAG IV SCH ×2 (18:00→20:00)
[2017-05-04] VITALS (30 sets, daily range): BP systolic 107–136; BP diastolic 66–88
[2017-05-04] MEDS: FENTANYL CITRATE/PF 100MCG/2 ML INJ IV PRN ×2 (00:50→04:30)
[2017-05-04] MEDS: METOCLOPRAMIDE HCL 10 MG/2ML VIAL IV SCH ×5 (01:06→23:06)
[2017-05-04] MEDS: SODIUM CHLORIDE 0.9% 250ML IRRIG IR SCH ×4 (01:07→13:00)
[2017-05-04] MEDS: PROPOFOL IV EMULSION 10MG/ML 100 ML IV PRN ×6 (01:55→22:16)
[2017-05-04 05:11] LABS: BASOPHILS # (AUTO) 0.1 (0.0-0.1); BASOPHILS % 0.5 % (0.0-1.0); EOSINOPHILS # (AUTO) 1.3 (0.0-0.4); EOSINOPHILS % 7.2 % (0.0-6.0); HEMOGLOBIN 9.3 g/dL (14.0-18.0); LYMPHOCYTES # (AUTO) 0.9 (1.0-3.2); LYMPHOCYTES % 5.1 % (18.0-39.1); MEAN CORPUSCULAR HEMOGLOBIN 23.7 pg (28-32); MEAN CORPUSCULAR VOLUME 76.3 fL (81-99); MONOCYTES # (AUTO) 1.8 (0.2-0.8); MONOCYTES % 10.1 % (4.4-11.3); NEUTROPHILS # (AUTO) 13.9 (2.1-6.9); NEUTROPHILS % 76.6 % (38.7-80.0); PLATELET COUNT 298 x10e3/uL (140-360); RED BLOOD COUNT 3.93 x10e6/uL (4.3-5.7)
[2017-05-04 05:27] LABS: ANION GAP 12.4 mmol/L (8-16); CALCIUM 8.2 mg/dL (8.4-10.2); CREATININE, SERUM 1.86 mg/dL (0.72-1.25); MAGNESIUM 1.8 MG/DL (1.3-2.1); PHOSPHORUS 4.7 MG/DL (2.3-4.7); POTASSIUM 3.4 mmol/L (3.5-5.1)
[2017-05-04] MEDS: LORAZEPAM INJ 2 MG/ML VIAL IV PRN ×2 (06:21→16:34)
[2017-05-04] MEDS: BALSAM PERU/CASTOR OIL 60 GM OINT...G. TP SCH ×2 (10:00→16:33)
[2017-05-04] MEDS: PANTOPRAZOLE 40 MG 10ML VIAL IV SCH ×2 (10:30→20:44)
[2017-05-04] MEDS: MULTIVITAMINS 5 ML LIQUID PO SCH (10:30)
[2017-05-04] MEDS: THIAMINE HCL 100 MG TAB PO SCH (10:30)
[2017-05-04] MEDS: CHOLESTYRAMINE 4 GM PACKET PO SCH ×2 (10:30→16:33)
[2017-05-04] MEDS: WATER STERILE 10 ML VIAL IV SCH ×2 (10:45→23:06)
[2017-05-04] MEDS: MEROPENEM 500 MG VIAL IV SCH ×2 (10:45→23:06)
[2017-05-04] MEDS: MICAFUNGIN SODIUM 50 ML IV SCH (12:00)
[2017-05-04] MEDS ORDERED: POTASSIUM CHLORIDE 20MEQ/15ML UDC NG ONE (15:30)
--- NOTE | 2017-05-04 16:56 | Progress Note ---
DATE: May 04, 2017 PULMONARY MEDICINE PROGRESS NOTE SUBJECTIVE: Mr. Mai was seen and examined at bedside. He continues to be on a ventilator. He has a tracheostomy in place. A sedation holiday was given but he was breathing too hard, so he was resedated with propofol 20 mcg per minute. He is tolerating tube feeds so far. Dextrose IV drip was weaned off. Hemodialysis yesterday tolerated. Had 2.7 L in, 2.9 L out. No fevers. REVIEW OF SYSTEMS: Not able to get as he is not talking. OBJECTIVE VITAL SIGNS: Afebrile. Vital signs noted per electronic record. GENERAL: No acute distress, alert and calm. HEENT: Normocephalic, atraumatic. NECK: Supple. Throat midline. LUNGS: Bilateral air entry, a few rhonchi. CARDIOVASCULAR: S1 and S2. No murmurs, rubs or gallops. ABDOMINAL: Soft, nontender. EXTREMITIES: No clubbing, no cyanosis. There is 1+ edema to the arms. INTEGUMENT: No rash. No purpura. LABS: 18 white count, 30 hematocrit, 2.4 potassium, 1.9 creatinine. IMPRESSION AND PLAN 1. Acute respiratory failure. 2. Chronic respiratory failure status post tracheostomy. 3. Postoperative ileus, possibly improved. 4. Dysphagia, status post nasogastric tube placement. 5. Encephalopathy, toxic-metabolic. 6. Acute kidney failure, not fully recovered yet. 1. Admit for peritonitis due to volvulus with perforation and necrotic bowel. Continue current treatment. Wean sedation to lowest needed. Continue ventilator support in the meanwhile. Continue antibiotics, which are ongoing. Continue restorative wound care. Follow up on tube feeds as needed. Job#: [id number]
[2017-05-04] MEDS: HEPARIN SOD (PORCINE) 5,000 UNIT/ML VIAL SC SCH (20:49)
[2017-05-05] VITALS (33 sets, daily range): BP systolic 111–139; BP diastolic 73–94
[2017-05-05] MEDS: PROPOFOL IV EMULSION 10MG/ML 100 ML IV PRN ×5 (01:24→21:00)
[2017-05-05] MEDS: LORAZEPAM INJ 2 MG/ML VIAL IV PRN ×3 (01:28→12:17)
[2017-05-05] MEDS: METOCLOPRAMIDE HCL 10 MG/2ML VIAL IV SCH ×4 (05:41→23:34)
--- NOTE | 2017-05-05 07:42 | Diagnostic Imaging Report ---
EXAMINATION: Chest, CHEST SINGLE (PORTABLE) INDICATION: Chest pain COMPARISON: Portable chest 05/01/2017 FINDINGS: Overlying wires and warming blanket limit evaluation of the examination. LINES: Right internal jugular temporary central venous catheter with tip projecting over the expected region of the superior vena cava. Tracheostomy catheter with tip projecting over the expected region of the trachea, projecting 6 cm from the miguelina. Heart: Normal cardiac silhouette. Vascular: The pulmonary vasculature is within normal limits. Atherosclerotic calcifications of the aortic arch. Mediastinum: No mediastinal, hilar, or axillary mass or lymphadenopathy. Lungs: No parenchymal mass. No focal consolidation. Bibasilar atelectasis. Pleura: No pleural effusion. No pneumothorax. Bones: No acute osseous abnormality. Degenerative changes of the thoracic spine. Soft tissues: Normal. Impression: No acute radiographic abnormality. Signed by: Dr. Сергей Root M.D. on 05/05/2017 7:39 AM
[2017-05-05 07:47] LABS: BASOPHILS # (AUTO) 0.1 (0.0-0.1); BASOPHILS % 0.7 % (0.0-1.0); EOSINOPHILS # (AUTO) 1.3 (0.0-0.4); EOSINOPHILS % 7.8 % (0.0-6.0); HEMATOCRIT 30.3 % (38.2-49.6); HEMOGLOBIN 9.2 g/dL (14.0-18.0); LYMPHOCYTES % 6.4 % (18.0-39.1); MEAN CORPUSCULAR HEMOGLOBIN 23.7 pg (28-32); MEAN CORPUSCULAR HGB CONC 30.4 g/dL (31-35); MEAN CORPUSCULAR VOLUME 78.1 fL (81-99); MONOCYTES # (AUTO) 1.4 (0.2-0.8); NEUTROPHILS # (AUTO) 12.1 (2.1-6.9); NEUTROPHILS % 75.5 % (38.7-80.0); PLATELET COUNT 360 x10e3/uL (140-360); RED BLOOD COUNT 3.88 x10e6/uL (4.3-5.7)
[2017-05-05 08:26] LABS: CALCIUM 8.8 mg/dL (8.4-10.2); CREATININE, SERUM 1.93 mg/dL (0.72-1.25)
[2017-05-05] MEDS: CHOLESTYRAMINE 4 GM PACKET PO SCH ×2 (09:09→18:02)
[2017-05-05] MEDS: PANTOPRAZOLE 40 MG 10ML VIAL IV SCH ×2 (09:09→21:27)
[2017-05-05] MEDS: MULTIVITAMINS 5 ML LIQUID PO SCH (09:09)
[2017-05-05] MEDS: BALSAM PERU/CASTOR OIL 60 GM OINT...G. TP SCH ×2 (09:09→17:56)
[2017-05-05] MEDS: THIAMINE HCL 100 MG TAB PO SCH (09:09)
[2017-05-05] MEDS: HEPARIN SOD (PORCINE) 5,000 UNIT/ML VIAL SC SCH ×2 (09:10→21:28)
[2017-05-05 10:15] LABS: BAND NEUTROPHILS % (MANUAL) 1 %; EOSINOPHILS % (MANUAL) 6 % (0-7); LYMPHOCYTES % (MANUAL) 8 % (19-48); MONOCYTES % (MANUAL) 4 % (3.4-9.0); NEUTROPHILS % (MANUAL) 81 % (40-74); RBC MORPHOLOGY COMMENT ABNORMAL
[2017-05-05 10:16] LABS: ANISOCYTOSIS MODERATE
[2017-05-05 10:17] LABS: MICROCYTOSIS MODERATE; PLATELET ESTIMATE SLIGHTLY INCREASED; PLATELET MORPHOLOGY COMMENT FEW LARGE
[2017-05-05] MEDS: MEROPENEM 500 MG VIAL IV SCH ×2 (11:33→23:34)
[2017-05-05] MEDS: WATER STERILE 10 ML VIAL IV SCH ×2 (11:33→23:34)
[2017-05-05] MEDS: MICAFUNGIN SODIUM 50 ML IV SCH (11:34)
--- NOTE | 2017-05-05 16:30 | Progress Note ---
DATE: May 05, 2017 PULMONARY MEDICINE PROGRESS NOTE SUBJECTIVE: Mr. Mai was seen and examined at bedside. Patient with intubated status. Tracheostomy is in place. Ventilator connected to tracheostomy. The patient remains on targeted thermomanagement but with no significant fevers. Feeds tolerated at 40 mL per hour and water at 100 mL every 4 hours. The patient has peed out 1 L over 7 hours. Propofol 15 mcg per minute. Had 2.3 L in and 2.5 L out. REVIEW OF SYSTEMS: Cannot get as he is on a ventilator. OBJECTIVE VITAL SIGNS: Afebrile. Vital signs noted per electronic record. GENERAL: No acute distress, alert but in a medication coma right now. Also looks chronic. HEENT: Normocephalic, atraumatic. NECK: Supple. Throat midline. LUNGS: Bilateral air entry, a few rhonchi. CARDIOVASCULAR: S1 and S2. No murmurs, rubs or gallops. ABDOMEN: Soft, nontender. Postoperative. EXTREMITIES: No clubbing, no cyanosis. There is some arm edema, trace. INTEGUMENT: No rash. No purpura. LABS: 70 BUN, 1.9 creatinine, 26 bicarbonate, 16 white count, 30 hematocrit, 360 platelets. IMPRESSION AND PLAN 1. Acute respiratory failure, on ventilator. 2. Acute kidney injury on intermittent dialysis. 3. Postoperative ileus. 4. Peritonitis, status post volvulus and ischemic gut. 5. Encephalopathy, not otherwise specified and multifactorial. Continue ventilator status. Daily sedation holiday to try to get spontaneous awake trials. Maintain sedation for safety when needed. Continue to follow up closely. Patient remains with feeds as tolerated. Will follow along closely. Job#: [id number]
[2017-05-06] VITALS (23 sets, daily range): BP systolic 108–153; BP diastolic 73–116
[2017-05-06] MEDS: PROPOFOL IV EMULSION 10MG/ML 100 ML IV PRN ×5 (00:28→20:56)
[2017-05-06] MEDS: LORAZEPAM INJ 2 MG/ML VIAL IV PRN ×4 (01:36→23:38)
[2017-05-06] MEDS: FENTANYL CITRATE/PF 100MCG/2 ML INJ IV PRN ×4 (01:37→23:39)
[2017-05-06] MEDS: ACETAMINOPHEN 325 MG TAB PO PRN (01:38)
[2017-05-06] MEDS: METOCLOPRAMIDE HCL 10 MG/2ML VIAL IV SCH ×4 (05:22→23:38)
[2017-05-06 06:21] LABS: BASOPHILS # (AUTO) 0.1 (0.0-0.1); BASOPHILS % 0.7 % (0.0-1.0); EOSINOPHILS # (AUTO) 1.1 (0.0-0.4); EOSINOPHILS % 6.8 % (0.0-6.0); HEMATOCRIT 29.8 % (38.2-49.6); LYMPHOCYTES % 6.3 % (18.0-39.1); MEAN CORPUSCULAR HEMOGLOBIN 23.6 pg (28-32); MEAN CORPUSCULAR HGB CONC 30.2 g/dL (31-35); MEAN CORPUSCULAR VOLUME 78.2 fL (81-99); MONOCYTES # (AUTO) 1.3 (0.2-0.8); NEUTROPHILS # (AUTO) 12.8 (2.1-6.9); NEUTROPHILS % 77.7 % (38.7-80.0); PLATELET COUNT 340 x10e3/uL (140-360); RED BLOOD COUNT 3.81 x10e6/uL (4.3-5.7)
[2017-05-06 06:38] LABS: ALBUMIN 2.2 g/dL (3.5-5.0); ALBUMIN/GLOBULIN RATIO 0.4 (0.8-2.0); ANION GAP 14.3 mmol/L (8-16); CALCIUM 8.6 mg/dL (8.4-10.2); CREATININE, SERUM 1.77 mg/dL (0.72-1.25); POTASSIUM 4.3 mmol/L (3.5-5.1)
[2017-05-06 07:58] LABS: SMUDGE CELLS R
[2017-05-06 07:59] LABS: HYPOCHROMASIA SLIGHT; PLATELET ESTIMATE ADEQUATE; PLATELET MORPHOLOGY COMMENT NORMAL
[2017-05-06 08:00] LABS: ANISOCYTOSIS SLIGHT; POIKILOCYTOSIS SLIGHT; RBC MORPHOLOGY COMMENT NORMAL
[2017-05-06] MEDS: HEPARIN SOD (PORCINE) 5,000 UNIT/ML VIAL SC SCH ×2 (09:00→20:55)
[2017-05-06] MEDS: THIAMINE HCL 100 MG TAB PO SCH (10:46)
[2017-05-06] MEDS: PANTOPRAZOLE 40 MG 10ML VIAL IV SCH ×2 (10:46→20:55)
[2017-05-06] MEDS: MULTIVITAMINS 5 ML LIQUID PO SCH (10:46)
[2017-05-06] MEDS: BALSAM PERU/CASTOR OIL 60 GM OINT...G. TP SCH ×2 (10:46→18:10)
[2017-05-06] MEDS: VANCOMYCIN 750MG/NS 150ML IVPB 150 ML IV SCH (10:46)
[2017-05-06] MEDS: CHOLESTYRAMINE 4 GM PACKET PO SCH ×2 (10:46→18:10)
[2017-05-06] MEDS: MICAFUNGIN SODIUM 50 ML IV SCH (12:00)
[2017-05-06] MEDS: MEROPENEM 500 MG VIAL IV SCH ×2 (14:18→23:38)
[2017-05-06] MEDS: WATER STERILE 10 ML VIAL IV SCH ×2 (14:18→23:38)
--- NOTE | 2017-05-06 20:30 | Diagnostic Imaging Report ---
EXAMINATION: Head CT without contrast. HISTORY:Altered mental status, unresponsive. COMPARISON:CT brain from 04/26/2017 and 04/22/2017. TECHNIQUE: Multidetector axial images were obtained from the foramen magnum to the vertex without contrast. The images were reconstructed using brain and bone algorithms. Thin section brain images were reformatted into coronal and sagittal planes. Intravenous contrast: None IMAGE QUALITY: Acceptable. FINDINGS: Skull/scalp: No abnormality. Parenchyma: Cortical-based hypodensity in left more than right occipital lobe with effacement of regional cortical sulci. No discrete acute hemorrhage. A punctate hemorrhage that was seen in prior CT brain from 04/22/2017 is not well visualized in current study, has possibly resolved. No midline shift or brain herniation. Linear oriented hypodensity in right superior frontal subcortical white matter that extends to the deep white matter of the frontal centrum semiovale may represent an old vascular insult (is better visualized in current study). Arteries: No density suggestive of thrombosis. Dural sinuses: No abnormal density suggestive of thrombosis. Ventricles: No hydrocephalus or displacement. Extra-axial spaces: No abnormal density. Brain volume: Normal for age. Craniocervical junction: No mass, Chiari malformation, or basilar invagination. Sella: No mass. Paranasal/mastoid sinuses: Partial opacification of left mastoid air cells. IMPRESSION: 1. 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 This can be followed up with MRI of the brain for further evaluation. 2. 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 Findings discussed with NATALIE Almanza by phone at 8:25 PM on 05/06/2017. Signed by: Dr. Cheri Noland M.D. on 05/06/2017 8:26 PM
--- NOTE | 2017-05-06 21:47 | Progress Note ---
DATE: May 06, 2017 PULMONARY MEDICINE PROGRESS NOTE SUBJECTIVE: Mr. Mai was seen and examined at bedside. Patient remains on the ventilator. Tracheostomy in place. Still some heavy breathing. Sedation holiday attempted, but limited. He has higher respiratory work of breathing and coughing. Patient on propofol 30 mcg. 40 per hour tolerated. Water 400 mL every 8 hours tolerated so far. Good amount of airway secretions. REVIEW OF SYSTEMS: Cannot get as he is on a ventilator. OBJECTIVE VITAL SIGNS: Afebrile. Vital signs noted per electronic record. GENERAL: No acute distress, on sedation and induced coma. HEENT: Normocephalic, atraumatic. NECK: Supple. Throat midline. LUNGS: Bilateral air entry, a few rhonchi. CARDIOVASCULAR: S1/S2. No murmurs, rubs or gallops. ABDOMEN: Soft, nontender. EXTREMITIES: No clubbing, no cyanosis. There is trace edema of upper extremities. INTEGUMENT: No rash, no purpura. LABS: 4.2 potassium, 72 BUN, 1.8 creatinine. 50 white count, 29 hematocrit, 340,000 platelets. IMPRESSIONS AND PLAN 1. Acute respiratory failure. 2. Acute kidney failure. 3. Encephalopathy, toxic metabolic. 4. Reversible encephalopathy. 5. Shock, resolved. 6. Acute liver failure, resolved. 7. with peritonitis with the bowel necrosis and volvulus. Continue current treatment. Antibiotics. Follow up as inflammation decreases. Repeat CAT scan to be done and also, get better look. Patient remains in very guarded prognosis and in critical condition. No feeding tube percutaneously for now to see NG tube currently. Discussed with surgeon and other physician as we are trying to coordinate a safe transfer to intermediate level of care, which has not been possible as of now. Will follow along closely. Job#: [id number] CQ
[2017-05-07] VITALS (40 sets, daily range): BP systolic 101–160; BP diastolic 71–107
[2017-05-07] MEDS: FENTANYL CITRATE/PF 100MCG/2 ML INJ IV PRN ×2 (01:30→03:30)
[2017-05-07] MEDS: LORAZEPAM INJ 2 MG/ML VIAL IV PRN (03:30)
[2017-05-07] MEDS: PROPOFOL IV EMULSION 10MG/ML 100 ML IV PRN ×3 (04:38→20:15)
[2017-05-07 05:24] LABS: BASOPHILS # (AUTO) 0.1 (0.0-0.1); BASOPHILS % 0.6 % (0.0-1.0); EOSINOPHILS # (AUTO) 0.8 (0.0-0.4); EOSINOPHILS % 4.6 % (0.0-6.0); HEMATOCRIT 32.1 % (38.2-49.6); HEMOGLOBIN 9.6 g/dL (14.0-18.0); LYMPHOCYTES # (AUTO) 0.8 (1.0-3.2); LYMPHOCYTES % 4.3 % (18.0-39.1); MEAN CORPUSCULAR HEMOGLOBIN 23.8 pg (28-32); MEAN CORPUSCULAR HGB CONC 29.9 g/dL (31-35); MEAN CORPUSCULAR VOLUME 79.5 fL (81-99); MONOCYTES # (AUTO) 1.5 (0.2-0.8); MONOCYTES % 8.1 % (4.4-11.3); NEUTROPHILS # (AUTO) 14.7 (2.1-6.9); NEUTROPHILS % 81.8 % (38.7-80.0); PLATELET COUNT 182 x10e3/uL (140-360); RED BLOOD COUNT 4.04 x10e6/uL (4.3-5.7)
[2017-05-07 05:49] LABS: ALBUMIN 2.3 g/dL (3.5-5.0); ALBUMIN/GLOBULIN RATIO 0.4 (0.8-2.0); ANION GAP 12.5 mmol/L (8-16); CALCIUM 8.8 mg/dL (8.4-10.2); CREATININE, SERUM 1.48 mg/dL (0.72-1.25); MAGNESIUM 1.6 MG/DL (1.3-2.1); PHOSPHORUS 5.5 MG/DL (2.3-4.7); POTASSIUM 4.5 mmol/L (3.5-5.1)
[2017-05-07] MEDS: METOCLOPRAMIDE HCL 10 MG/2ML VIAL IV SCH ×3 (06:31→19:06)
--- NOTE | 2017-05-07 06:56 | Diagnostic Imaging Report ---
EXAM: CHEST SINGLE (PORTABLE), AP 1 view DATE: 05/07/2017 5:00 AM Time stamp on exam: 0539 hours INDICATION: Intubated COMPARISON: AP view of the chest April 26, 2017 FINDINGS: Limited view due to positioning, motion and penetration. LINES/TUBES: Tracheostomy, right internal jugular vein temporary hemodialysis catheter and central line, stable position. Limited view of feeding tube. LUNGS: Bibasilar atelectasis. PLEURA: Indeterminate for pleural effusion on the right. HEART AND MEDIASTINUM: Stable BONES AND SOFT TISSUES: No acute findings. IMPRESSION: No interval change within the limitations of the exam. Signed by: Dr. Autumn Garcia M.D. on 05/07/2017 6:53 AM
[2017-05-07 07:54] LABS: ANISOCYTOSIS SLIGHT; HYPOCHROMASIA SLIGHT; RBC MORPHOLOGY COMMENT NORMAL
[2017-05-07 07:55] LABS: PLATELET ESTIMATE ADEQUATE; PLATELET MORPHOLOGY COMMENT FEW LARGE
[2017-05-07] MEDS: MULTIVITAMINS 5 ML LIQUID PO SCH (10:27)
[2017-05-07] MEDS: THIAMINE HCL 100 MG TAB PO SCH (10:27)
[2017-05-07] MEDS: CHOLESTYRAMINE 4 GM PACKET PO SCH ×2 (10:27→18:54)
[2017-05-07] MEDS: PANTOPRAZOLE 40 MG 10ML VIAL IV SCH ×2 (10:27→20:22)
[2017-05-07] MEDS: BALSAM PERU/CASTOR OIL 60 GM OINT...G. TP SCH ×2 (10:27→18:54)
[2017-05-07] MEDS: WATER STERILE 10 ML VIAL IV SCH (11:00)
[2017-05-07] MEDS: MEROPENEM 500 MG VIAL IV SCH (11:46)
[2017-05-07] MEDS: HEPARIN SOD (PORCINE) 5,000 UNIT/ML VIAL SC SCH ×2 (11:46→20:24)
[2017-05-07] MEDS: MICAFUNGIN SODIUM 50 ML IV SCH (12:00)
--- NOTE | 2017-05-07 13:36 | Progress Note ---
DATE: May 07, 2017 PULMONARY MEDICINE PROGRESS NOTE SUBJECTIVE: Mr. Mai was seen and examined at bedside. He continues to have steady progress. Patient remains on ventilator. Patient still with some extra work of breathing. Patient with tube feedings tolerated at 40 mL per hour. Water at 400 mL every 8 hours tolerated. Propofol 35 mcg. There are slightly decreased secretions today. REVIEW OF SYSTEMS: Cannot get as he is on a ventilator. OBJECTIVE VITAL SIGNS: Afebrile. Vital signs noted per electronic record. GENERAL: No acute distress. Sedated, so he is not following complex commands. HEENT: Normocephalic, atraumatic. NECK: Supple. Throat midline. LUNGS: Bilateral air entry, a few rhonchi. CARDIOVASCULAR: S1, S2. No murmurs, rubs or gallops. ABDOMEN: Soft, nontender. EXTREMITIES: No clubbing. No cyanosis. There is trace 1+ edema to the arms. INTEGUMENT: No rash. No purpura. LABS: 4.5 potassium, 33 BUN, 1.5 creatinine, 18 white count, 32 hematocrit. IMPRESSION AND PLAN 1. Toxic-metabolic encephalopathy, severe. 2. Acute respiratory failure, on ventilator. 3. Acute kidney failure, recovering partially. 4. Shock, resolved. 5. Acute liver failure, resolved. 6. Coagulopathy, disseminated intravascular coagulation, resolving well. 7. Admit for peritonitis and volvulus with bowel necrosis. Continue current treatment. Will follow up closely. The patient will need more time to try to waken. CAT scan noted. If he is able to, consider MRI when he is more stable and moving less. For now, continue antibiotics. Continue ventilator. Daily sedation holidays. We are hopeful to try to get him through this encephalopathy. Will follow along closely. Job#: [id number]
[2017-05-08] VITALS (38 sets, daily range): BP systolic 105–144; BP diastolic 68–96
[2017-05-08] MEDS: METOCLOPRAMIDE HCL 10 MG/2ML VIAL IV SCH ×3 (00:14→12:00)
[2017-05-08] MEDS: MEROPENEM 500 MG VIAL IV SCH ×2 (00:14→11:00)
[2017-05-08] MEDS: WATER STERILE 10 ML VIAL IV SCH ×2 (00:14→11:00)
[2017-05-08] MEDS: PROPOFOL IV EMULSION 10MG/ML 100 ML IV PRN ×3 (00:41→07:02)
[2017-05-08] MEDS: LORAZEPAM INJ 2 MG/ML VIAL IV PRN (00:41)
[2017-05-08 05:07] LABS: BASOPHILS # (AUTO) 0.1 (0.0-0.1); BASOPHILS % 0.7 % (0.0-1.0); EOSINOPHILS # (AUTO) 0.6 (0.0-0.4); EOSINOPHILS % 3.8 % (0.0-6.0); HEMATOCRIT 31.9 % (38.2-49.6); HEMOGLOBIN 9.7 g/dL (14.0-18.0); LYMPHOCYTES # (AUTO) 0.8 (1.0-3.2); MEAN CORPUSCULAR HEMOGLOBIN 24.1 pg (28-32); MEAN CORPUSCULAR HGB CONC 30.4 g/dL (31-35); MEAN CORPUSCULAR VOLUME 79.2 fL (81-99); MONOCYTES # (AUTO) 1.5 (0.2-0.8); MONOCYTES % 8.7 % (4.4-11.3); NEUTROPHILS # (AUTO) 13.5 (2.1-6.9); NEUTROPHILS % 81.3 % (38.7-80.0); PLATELET COUNT 356 x10e3/uL (140-360); RED BLOOD COUNT 4.03 x10e6/uL (4.3-5.7)
[2017-05-08 05:24] LABS: ALANINE AMINOTRANSFERASE 46 IU/L (0-55); ALBUMIN 2.3 g/dL (3.5-5.0); ALBUMIN/GLOBULIN RATIO 0.4 (0.8-2.0); ALKALINE PHOSPHATASE 120 IU/L (40-150); ANION GAP 12.3 mmol/L (8-16); BLOOD UREA NITROGEN 64 mg/dL (7-26); BUN/CREATININE RATIO 49 (6-25); CALCIUM 8.8 mg/dL (8.4-10.2); CARBON DIOXIDE 27 mmol/L (22-29); CHLORIDE 110 mmol/L (98-107); EST GLOMERULAR FILTRATION RATE > 60 ML/MIN (60-); GLUCOSE 107 mg/dL (74-118); MAGNESIUM 1.5 MG/DL (1.3-2.1); PHOSPHORUS 4.5 MG/DL (2.3-4.7); POTASSIUM 4.3 mmol/L (3.5-5.1); SODIUM 145 mmol/L (136-145)
[2017-05-08 05:44] LABS: THYROID STIMULATING HORMONE 3.729 uIU/mL (0.350-4.940)
[2017-05-08 07:57] LABS: ANISOCYTOSIS MODERATE; HYPOCHROMASIA SLIGHT; PLATELET ESTIMATE ADEQUATE
[2017-05-08 07:58] LABS: HOWELL-JOLLY BODIES FEW; PLATELET MORPHOLOGY COMMENT NORMAL; RBC MORPHOLOGY COMMENT ABNORMAL; TARGET CELLS FEW
[2017-05-08] MEDS: MULTIVITAMINS 5 ML LIQUID PO SCH (09:00)
[2017-05-08] MEDS: CHOLESTYRAMINE 4 GM PACKET PO SCH (09:00)
[2017-05-08] MEDS: PANTOPRAZOLE 40 MG 10ML VIAL IV SCH (09:00)
[2017-05-08] MEDS: HEPARIN SOD (PORCINE) 5,000 UNIT/ML VIAL SC SCH (09:00)
[2017-05-08] MEDS: VANCOMYCIN 750MG/NS 150ML IVPB 150 ML IV SCH (09:00)
[2017-05-08] MEDS: BALSAM PERU/CASTOR OIL 60 GM OINT...G. TP SCH (09:00)
[2017-05-08] MEDS: THIAMINE HCL 100 MG TAB PO SCH (09:00)
[2017-05-08] MEDS: MICAFUNGIN SODIUM 50 ML IV SCH (12:00)
--- NOTE | 2017-05-08 13:23 | Progress Note ---
DATE: May 08, 2017 PULMONARY MEDICINE PROGRESS NOTE SUBJECTIVE: Mr. Mai was seen and examined at bedside. Patient continues to have steady progress. He was able to come off propofol for about 30 minutes yesterday before his work of breathing started to escalate. Patient was able to follow commands and visibly blinked his eyes appropriately on command. Patient remains on ventilator. He is tolerating tube feeds. REVIEW OF SYSTEMS: Cannot get as he is intubated. OBJECTIVE VITAL SIGNS: Afebrile. Vital signs noted per electronic record. GENERALLY: No acute distress, but he is sedated. HEENT: Normocephalic, atraumatic. NECK: Supple. Throat midline. LUNGS: Bilateral air entry, a few rhonchi. CARDIOVASCULAR: S1 and S2. No murmurs, rubs or gallops. ABDOMINAL: Soft, nontender. EXTREMITIES: No clubbing, no cyanosis, no edema. INTEGUMENT: No rash. No purpura. IMPRESSION AND PLAN 1. Acute respiratory failure. 2. Chronic respiratory failure status post tracheostomy. 3. Dysphagia with nasogastric tube Dobbhoff in place. 4. Severe protein calorie malnutrition. 5. Encephalopathy, toxic-metabolic. 6. Peritonitis after ischemic bowel, status post resection for the gut necrosis. Continue current treatment. Wean ventilator as we are able to. Continue sedation for now. Intermittent electrolytes, intermittent triglyceride levels. Follow up closely. Job#: [id number] EV
== END 2017-05-08 13:25 | DRG 3 ==
LOC: ER 15:17 → UNDOADMOB 19:37 → ERHOLD 19:37 → EDBEDREQ 19:39 → ERHOLD 20:52 → IMCU 20:52 → ICU 04-10 06:43 → IMCU 04-10 06:43 → INTOOBSV 04-10 08:26 → OBSVTOIN 04-10 08:26
PROVIDERS: ADMIT Internal Medicine; ATTEND Internal Medicine
PROC: 5A1955Z Respiratory Ventilation, Greater than 96 Consecutive Hours (ICD-10-PCS; 2017-04-10)
PROC: 0D160ZA Bypass Stomach to Jejunum, Open Approach (ICD-10-PCS; 2017-04-10)
PROC: 0BH17EZ Insertion of Endotracheal Airway into Trachea, Via Natural or Artificial Opening (ICD-10-PCS; 2017-04-10)
PROC: 3E043XZ Introduction of Vasopressor into Central Vein, Percutaneous Approach (ICD-10-PCS; 2017-04-10)
PROC: 30233N1 Transfusion of Nonautologous Red Blood Cells into Peripheral Vein, Percutaneous Approach (ICD-10-PCS; 2017-04-10)
PROC: 0DBA0ZZ Excision of Jejunum, Open Approach (ICD-10-PCS; principal; 2017-04-10 13:00)
PROC: 02HV33Z Insertion of Infusion Device into Superior Vena Cava, Percutaneous Approach (ICD-10-PCS; 2017-04-11)
PROC: 5A1D70Z Performance of Urinary Filtration, Intermittent, Less than 6 Hours Per Day (ICD-10-PCS; 2017-04-11)
PROC: 0W9G0ZZ Drainage of Peritoneal Cavity, Open Approach (ICD-10-PCS; 2017-04-12)
PROC: 0WPF0JZ Removal of Synthetic Substitute from Abdominal Wall, Open Approach (ICD-10-PCS; 2017-04-14)
PROC: 0DQ60ZZ Repair Stomach, Open Approach (ICD-10-PCS; 2017-04-14)
PROC: 0WQF0ZZ Repair Abdominal Wall, Open Approach (ICD-10-PCS; 2017-04-14)
PROC: 0W9G0ZZ Drainage of Peritoneal Cavity, Open Approach (ICD-10-PCS; 2017-04-14)
PROC: 06H03DZ Insertion of Intraluminal Device into Inferior Vena Cava, Percutaneous Approach (ICD-10-PCS; 2017-04-14)
PROC: 3E0436Z Introduction of Nutritional Substance into Central Vein, Percutaneous Approach (ICD-10-PCS; 2017-04-14)
PROC: B5191ZZ Fluoroscopy of Inferior Vena Cava using Low Osmolar Contrast (ICD-10-PCS; 2017-04-14)
PROC: 0W9B3ZX Drainage of Left Pleural Cavity, Percutaneous Approach, Diagnostic (ICD-10-PCS; 2017-04-14)
PROC: 02HV33Z Insertion of Infusion Device into Superior Vena Cava, Percutaneous Approach (ICD-10-PCS; 2017-04-15)
PROC: 0BC38ZZ Extirpation of Matter from Right Main Bronchus, Via Natural or Artificial Opening Endoscopic (ICD-10-PCS; 2017-04-16)
PROC: 3E1F88Z Irrigation of Respiratory Tract using Irrigating Substance, Via Natural or Artificial Opening Endoscopic (ICD-10-PCS; 2017-04-16)
PROC: 0B110F4 Bypass Trachea to Cutaneous with Tracheostomy Device, Open Approach (ICD-10-PCS; 2017-04-29)
PROC: 02PY33Z Removal of Infusion Device from Great Vessel, Percutaneous Approach (ICD-10-PCS; 2017-05-01)
PROC: 02HV33Z Insertion of Infusion Device into Superior Vena Cava, Percutaneous Approach (ICD-10-PCS; 2017-05-01)
PROC: 3E1F88Z Irrigation of Respiratory Tract using Irrigating Substance, Via Natural or Artificial Opening Endoscopic (ICD-10-PCS; 2017-05-02)
PROC: 0DJ08ZZ Inspection of Upper Intestinal Tract, Via Natural or Artificial Opening Endoscopic (ICD-10-PCS; 2017-05-02)
DX: A41.9 Sepsis, unspecified organism (principal); G72.81 Critical illness myopathy; G62.81 Critical illness polyneuropathy; E43 Unspecified severe protein-calorie malnutrition; K55.029 Acute infarction of small intestine, extent unspecified; J96.20 Acute and chronic respiratory failure, unspecified whether with hypoxia or hypercapnia; J15.5 Pneumonia due to Escherichia coli; K65.0 Generalized (acute) peritonitis; G92 Toxic encephalopathy; B37.89 Other sites of candidiasis; K55.042 Diffuse acute infarction of large intestine; K72.00 Acute and subacute hepatic failure without coma; N17.0 Acute kidney failure with tubular necrosis; R65.21 Severe sepsis with septic shock; K63.1 Perforation of intestine (nontraumatic); K56.2 Volvulus; K25.5 Chronic or unspecified gastric ulcer with perforation; I82.411 Acute embolism and thrombosis of right femoral vein; I82.812 Embolism and thrombosis of superficial veins of left lower extremity; I82.622 Acute embolism and thrombosis of deep veins of left upper extremity; E87.2 Acidosis; T17.890A Other foreign object in other parts of respiratory tract causing asphyxiation, initial encounter; T82.7XXA Infection and inflammatory reaction due to other cardiac and vascular devices, implants and grafts, initial encounter; L03.114 Cellulitis of left upper limb; J98.11 Atelectasis; K56.7 Ileus, unspecified; K43.2 Incisional hernia without obstruction or gangrene; E29.1 Testicular hypofunction; Z98.84 Bariatric surgery status; D72.829 Elevated white blood cell count, unspecified; D69.6 Thrombocytopenia, unspecified; E16.2 Hypoglycemia, unspecified; E87.5 Hyperkalemia; R13.12 Dysphagia, oropharyngeal phase; K29.70 Gastritis, unspecified, without bleeding; K44.9 Diaphragmatic hernia without obstruction or gangrene; Y84.8 Other medical procedures as the cause of abnormal reaction of the patient, or of later complication, without mention of misadventure at the time of the procedure; R19.7 Diarrhea, unspecified; D64.9 Anemia, unspecified; I11.0 Hypertensive heart disease with heart failure; I50.9 Heart failure, unspecified; E11.9 Type 2 diabetes mellitus without complications
CPT/HCPCS: 31623; 32555; 36005; 36415; 36430; 36556; 36580; 36600; 37191; 70450; 71010; 71250; 74000; 74150; 74176; 74470; 76700; 76882; 76937; 77001; 80048; 80053; 80061; 80076; 80202; 81001; 82140; 82150; 82550; 82607; 82746; 82805; 82948; 83036; 83605; 83615; 83690; 83735; 84100; 84134; 84157; 84443; 84478; 84630; 85007; 85014; 85018; 85025; 85027; 85384; 85610; 85730; 86850; 86900; 86920; 87040; 87070; 87071; 87075; 87086; 87186; 87205; 87335; 87340; 87493; 88307; 89051; 90962; 93005; 93306; 93930; 93970; 93971; 94002; 94003; 95812; 96360; 96361; 96365; 96366; 96374; 99284; C1751; G0378; J0360; J0456; J0610; J1170; J1450; J1644; J1940; J2001; J2060; J2150; J2185; J2248; J2250; J2270; J2370; J2405; J2543; J2765; J3370; J3411; J3430; J7030; J7040; J7050; J7060; J7070; J7799; P9016

== ENCOUNTER 2018-05-02 18:05 | Emergency (ER) | payer OTHER ==
[~2018-05-02] VITALS: Ht 188 cm; Wt 112.5 kg
[~2018-05-02 18:05] MED LIST changes: +VITAMIN B-121000 MCG IM
--- OUTSIDE RECORDS SUMMARY | 2018-05-02 18:08 | XMS REPORT ---
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 Allergies, Adverse Reactions, Alerts This patient has no known allergies or adverse reactions. Medications This patient has no known medications. Results Test Description Test Time Test Comments Text Results Atomic Results Result Comments CHEST SINGLE (PORTABLE) [place] [address] Patient Name: SHIELA FARLEY MR #: [id number] : 1980 Age/Sex: 37/M Req #: [id number] Adm Physician: RADHA HOFFMAN MD Ordered by: RADHA HOFFMAN MD Report #: [id number] Location: ICU Room/Bed: ICU [facility] Procedure: [id number] DX/CHEST SINGLE (PORTABLE) Exam Date: 05/07/17 Exam Time: 0530 REPORT STATUS: Signed EXAM: CHEST SINGLE (PORTABLE), AP 1 view DATE: 05/07/2017 5:00 AM Time stamp on exam: 0539 hours INDICATION: Intubated COMPARISON: AP view of the chest April 26, 2017 FINDINGS: Limited view due to positioning, motion and penetration. LINES/TUBES: Tracheostomy, right internal jugular vein temporary hemodialysis catheter and central line, stable position. Limited view of feeding tube. LUNGS: Bibasilar atelectasis. PLEURA: Indeterminate for pleural effusion on the right. HEART AND MEDIASTINUM: Stable BONES AND SOFT TISSUES: No acute findings. IMPRESSION: No interval change within the limitations of the exam. Signed by: Dr. Benjamin Garcia M.D. on 05/07/2017 6:53 AM Dictated By: BENJAMIN GARCIA MD 2 Transcribed By: SEFERINO on 05/07/17652 COPY TO: RADHA HOFFMAN MD CT BRAIN WO [place] [address] Patient Name: SHIELA FARLEY MR #: [id number] : 1980 Age/Sex: 37/M Req #: [id number] Adm Physician: RADHA HOFFMAN MD Ordered by: RAFY ALMENDAREZ MD Report #: [id number] Location: ICU Room/Bed: ICU [facility] Procedure: [id number] CT/CT BRAIN WO Exam Date: 05/06/17 Exam Time: 1929 REPORT STATUS: Signed EXAMINATION: Head CT without contrast. HISTORY:Altered mental status, unresponsive. COMPARISON:CT brain from 04/26/2017 and 04/22/2017. TECHNIQUE: Multidetector axial images were obtained from the foramen magnum to the vertex without contrast. The images were reconstructed using brain and bone algorithms. Thin section brain images were reformatted into coronal and sagittal planes. Intravenous contrast: None IMAGE QUALITY: Acceptable. FINDINGS: Skull/scalp: No abnormality. Parenchyma: Cortical-based hypodensity in left more than right occipital lobe with effacement of regional cortical sulci. No discrete acute hemorrhage. A punctate hemorrhage that was seen in prior CT brain from 04/22/2017 is not well visualized in current study, has possibly resolved. No midline shift or brain herniation. Linear oriented hypodensity in right superior frontal subcortical white matter that extends to the deep white matter of the frontal centrum semiovale may represent an old vascular insult (is better visualized in current study). Arteries: No density suggestive of thrombosis. Dural sinuses: No abnormal density suggestive of thrombosis. Ventricles: No hydrocephalus or displacement. Extra- axial spaces: No abnormal density. Brain volume: Normal for age. Craniocervical junction: No mass, Chiari malformation, or basilar inva gination. Sella: No mass. Paranasal/mastoid sinuses: Partial opacification of left mastoid air cells. IMPRESSION: 1. 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 This can be followed up with MRI of the brain for further evaluation. 2. 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 Findings discussed with NATALIE Almanza by phone at 8:25 PM on 05/06/2017. Signed by: Dr. Cheri Noland M.D. on 05/06/2017 8:26 PM Dictated By: CHERI NOLAND MD 25 Transcribed By: SEFERINO on 05/06/172025 COPY TO: RAFY ALMENDAREZ MD [facility] (PORTABLE) [place] [address] Patient Name: SHIELA FARLEY MR #: [id number] : 1980 Age/Sex: 37/M Req #: [id number] Adm Physician: RADHA HOFFMAN MD Ordered by: RASHID JENKINS MD Report #: [id number] Location: ICU Room/Bed: ICU 194 Procedure: [id number] DX/CHEST SINGLE (PORTABLE) Exam Date: 05/05/17 Exam Time: 0500 REPORT STATUS: Signed EXAMINATION: Chest, CHEST SINGLE (PORTABLE) INDICATION: Chest pain COMPARISON: Portable chest 05/01/2017 FINDINGS: Overlying wires and warming blanket limit evaluation of the examination. LINES: Right internal jugular temporary central venous catheter with tip projecting over the expected region of the superior vena cava. Tracheostomy catheter with tip projecting over the expected region of the trachea, projecting 6 cm from the miguelina. Heart: Normal cardiac silhouette. Vascular: The pulmonary vasculature is within normal limits. Atherosclerotic calcifications of the aortic arch. Mediastinum: No mediastinal, hilar, or axillary mass or lymphadenopathy. Lungs: No parenchymal mass. No focal consolidation. Bibasilar atelectasis. Pleura: No pleural effusion. No pneumothorax. Bones: No acute osseous abnormality. Degenerative changes of the thoracic spine. Soft tissues: Normal. Impression: No acute radiographic abnormality. Signed by: Dr. Salome Hawkins M.D. on 05/05/2017 7:39 AM Dictated By: SALOME HAWKINS MD 8 Transcribed By: SEFERINO on 05/05/17738 COPY TO: RASHID JENKINS MD CHEST SINGLE (PORTABLE) [place] [address] Patient Name: SHIELA FARLEY MR #: [id number] : 1980 Age/Sex: 37/M Req #: [id number] Adm Physician: RADHA HOFFMAN MD Ordered by: RASHID JENKINS MD Report #: [id number] Location: ICU Room/Bed: ICU 194 Procedure: [id number] DX/CHEST SINGLE (PORTABLE) Exam Date: 05/03/17 Exam Time: 0650 REPORT STATUS: Signed PROCEDURE: A single AP view of the chest. COMPARISON: Patients [facility], DX, CHEST SINGLE (PORTABLE), 05/02/2017, 22:12. INDICATIONS: RESP FAILURE FINDINGS: Lines/tubes: Tracheostomy tube and 2 right IJ central lines are in unchanged positions. Dobbhoff feeding tube with its tip below the diaphragm. Lungs: Central pulmonary vascular congestion. Left lower lobe basilar opacity may represent aspiration pneumonitis. Pleura: Small left pleural effusion. Heart and mediastinum: The heart and the mediastinum are unremarkable. Bones: No acute bony abnormality. IMPRESSION: 1. Mild central pulmonary vascular congestion. 2. Persistent left lower lobe basilar opacity. Laurent Anthony D.O. Dictated by: Laurent Anthony D.O. on 05/03/2017 at 10:08 Electronically approved by: Laurent Anthony D.O. on 05/03/2017 at 10:08 Dictated By: LAURENT ANTHONY DO 1009 Transcribed By: DAYA on 05/03/17 1009 COPY TO: RASHID JENKINS MD CHEST SINGLE (PORTABLE) [place] [address] Patient Name: SHIELA FARLEY MR #: [id number] : 1980 Age/Sex: 37/M Req #: [id number] Adm Physician: RADHA HOFFMAN MD Ordered by: RASHID JENKINS MD Report #: [id number] Location: ICU Room/Bed: ICU [facility] Procedure: [id number] DX/CHEST SINGLE (PORTABLE) Exam Date: 05/02/17 Exam Time: 2200 REPORT STATUS: Signed CHEST SINGLE (PORTABLE), 05/02/2017 10:04 PM Technique: CHEST SINGLE (PORTABLE) Comparison: 05/02/2017 Clinical history: Fever Findings: See below Impression: Limited by portable technique and rightward rotation. 1. Lines/Tubes: Removal of NG tube and placement of subdiaphragmatic enteric feeding tube. Stable tracheostomy, right IJ central venous catheters over the SVC (tips poorly seen). 2. Persistent bibasilar opacity. This is increased on the left which may be due to aspiration/lobar atelectasis and/or infection. Cannot exclude a small amount of underlying pleural fluid. Signed by: Dr Purnima Gonzalez MD on 05/02/2017 10:42 PM Dictated By: PURNIMA GONZALEZ MD 41 Transcribed By: SEFERINO on 2241 COPY TO: RASHID JENKINS MD ABDOMEN-1VIEW (KU) [place] [address] Patient Name: SHIELA FARLEY MR #: [id number] : 1980 Age/Sex: 37/M Req #: [id number] Adm Physician: RADHA HOFFMAN MD Ordered by: SOFIA AYALA MD Report #: [id number] Location: ICU Room/Bed: ICU 194 Procedure: [id number] DX/ABDOMEN-1VIEW (KUB) Exam Date: 05/02/17 Exam Time: 1600 REPORT STATUS: Signed PROCEDURE: X-RAY ABDOMEN - KUB COMPARISON: Chest radiograph 05/02/2016 INDICATIONS: Dobbhoff tube placement today FINDINGS: Limited radiograph for tube placement purposes. Motion degraded study. Dobbhoff tube tip overlies the expected location of the gastric body. IVC filter projects over the medial right abdomen. No abnormally distended air filled loops of bowel within the visualized abdomen. Gas is present within the colon. Please refer to same day chest radiograph for lung findings including left lower lobe airspace disease. Osseous structures are grossly intact. CONCLUSION: Dobbhoff tube tip overlies the expected gastric body. Dictated by: Romario Grayson M.D. on 05/02/2017 at 16:29 Electronically approved by: Romario Grayson M.D. on 05/02/2017 at 16:29 Dictated By: ROMARIO GRAYSON MD 28 Transcribed By: DAYA on 05/02/171628 COPY TO: SOFIA AYALA MD CT ABDOMEN WO [place] [address] Patient Name: SHIELA FARLEY MR #: [id number] : 1980 Age/Sex: 37/M Req #: [id number] Adm Physician: RADHA HOFFMAN MD Ordered by: MAYUR MOORE MD Report #: [id number] Location: ICU Room/Bed: [place] [address] Procedure: [id number] CT/CT ABDOMEN WO Exam Date: 05/02/17 Exam Time: 0320 REPORT STATUS: Signed This report includes an Addendum and supersedes previous reports for this exam. PROCEDURE: CT ABDOMEN WITHOUT CONTRAST TECHNIQUE: The abdomen was scanned utilizing a multidetector helical scanner from the diaphragm to the iliac crest. No intravenous contrast was administered. Oral Gastrografin was administered via the enteric tube. Coronal and sagittal multiplanar reformations were obtained. COMPARISON: Chest radiograph 05/01/2017. CT abdomen and pelvis without contrast 04/08/2017 INDICATIONS: ELEVATED LIVER ENZYMES FINDINGS: ABSENCE OF INTRAVENOUS CONTRAST DECREASES SENSITIVITY FOR DETECTION OF FOCAL LESIONS AND VASCULAR PATHOLOGY. LOWER THORAX: Left lower lobe consolidation with multiple air bronchograms. Right lower lobe atelectasis.. HEPATOBILIARY: The liver is enlarged, measuring 20 cm in craniocaudal span. No focal hepatic lesion or intrahepatic biliary ductal dilatation, though evaluation of the parenchyma is limited secondary to beam hardening artifact from the patients arms at his side as well as from dense contrast material within the stomach. SPLEEN: The spleen is mildly enlarged, measuring approximately 14 cm in craniocaudal span. No focal splenic lesion. PANCREAS: No focal masses or ductal dilatation. ADRENALS: No adrenal nodules. KIDNEYS: No hydronephrosis, stones, or solid mass lesions. PERITONEUM / RETROPERITONEUM: Trace ascites along the inferior margin of the right hepatic lobe. No pneumoperitoneum. LYMPH NODES: No upper retroperitoneal or mesenteric lymphadenopathy. VESSELS: Limited evaluation in the absence of intravenous contrast. The abdominal aorta is non-aneurysmal. An infrarenal IVC filter is noted. GI TRACT: Postsurgical changes of the stomach with resolution of previously noted dilated loops of small bowel. A serpiginous high attenuation focus extends anterior to the distal stomach best appreciated on series 2 image 26, felt to represent radiopaque surgical material rather than leak in the absence of significant ascites or pneumoperitoneum. BONES AND SOFT TISSUES: Postsurgical changes of the anterior abdominal wall. No acute osseous abnormalities. IMPRESSION: Nonspecific mild hepatosplenomegaly. No focal hepatic mass lesion or biliary dilatation. Post surgical changes of the stomach and proximal small bowel, with interval resolution of small bowel dilatation. Small focus of radiopaque material anterior to the distal stomach likely represents radiopaque surgical material rather than contrast leak in the absence of significant ascites or pneumoperitoneum. Dictated by: Tyra Leiva M.D. on 05/02/2017 at 7:50 Electronically approved by: Tyra Leiva M.D. on 05/02/2017 at 7:50 ADDENDUM: The following should be included in the impression above: Left lower lobe aspiration pneumonitis or pneumonia. Right lower lobe subsegmental atelectasis. Dictated by: Tyra Leiva M.D. on 05/02/2017 at 11:20 Electronically approved by: Tyra Leiva M.D. on 05/02/2017 at 11:20 Dictated By: TYRA LEIVA MD 1120 Transcribed By: DAYA on 05/02/17 1120 COPY TO: MAYUR MOORE MD CHEST SINGLE (PORTABLE) [place] [address] Patient Name: SHIELA FARLEY MR #: [id number] : 1980 Age/Sex: 37/M Req #: [id number] [facility] Physician: RADHA HOFFMAN MD Ordered by: RASHID JENKINS MD Report #: [id number] Location: ICU Room/Bed: [place] [address] Procedure: [id number] DX/CHEST SINGLE (PORTABLE) Exam Date: 05/02/17 Exam Time: 0450 REPORT STATUS: Signed PROCEDURE: CHEST SINGLE (PORTABLE) COMPARISON: Chest radiograph 05/01/2017. INDICATIONS: RESPIRATORY FAILURE FINDINGS: Tracheostomy, enteric tube, right internal jugular low flow and high flow central venous catheters are unchanged in position. Worsening left lower lobe airspace disease with loss of the hemidiaphragmatic contour. Subsegmental atelectasis in the right lower lobe. Heart size is normal. No overt pulmonary edema. CONCLUSION: Stable position of support lines and tubes. Worsening aspiration or pneumonia in the left lower lobe. Subsegmental atelectasis in the right lung base. Dictated by: Tyra Leiva M.D. on 05/02/2017 at 11:19 Electronically approved by: Tyra Leiva M.D. on 05/02/2017 at 11:19 Dictated By: TYRA LEIVA MD 111 Transcribed By: DAYA on 05/02/17 111 COPY TO: RASHID JENKINS MD IR CONSULT [place] [address] Patient Name: SHIELA FARLEY MR #: [id number] : 1980 Age/Sex: 37/M Req #: [id number] Adm Physician: RADHA HOFFMAN MD Ordered by: RASHID JENKINS MD Report #: [id number] Location: ICU Room/Bed: ICU [facility] Procedure: [id number] DX/IR CONSULT Exam Date: Exam Time: REPORT STATUS: Signed PROCEDURE: NON-TUNNELLED CVC CATH REPLACE COMPARISON: None. INDICATIONS: Routine exchange COMPLICATIONS: None MEDICATIONS: 1% Xylocaine BLOOD LOSS: None PROCEDURE: Procedure was performed at the bedside under sterile conditions. The 12 Togolese indwelling temporary Christiano hemodialysis catheter was removed over a 0.035 inch Amplatz Super Stiff wire. A new 12 Togolese 20 cm long Christiano catheter was then placed over the wire. This new catheter was secured to the skin with 2-0 Ethilon. A confirmatory film was ordered. CONCLUSION: Successful catheter exchange. Laurent [place] D.O. Dictated by: Laurent Anthony D.O. on 05/01/2017 at 13:40 Electronically approved by: Laurent Anthony D.O. on 05/01/2017 at 13:40 Dictated By: LAURENT ANTHONY DO 1341 Transcribed By: DAYA on 05/01/17 1341 COPY TO: RASHID JENKINS MD CHEST XRAY LINE PLACEMENT [place] [address] Patient Name: SHIELA FARLEY MR #: [id number] : 1980 Age/Sex: 37/M Req #: [id number] Adm Physician: RADHA HOFFMAN MD Ordered by: RASHID JENKINS MD Report #: [id number] Location: ICU Room/Bed: ICU [facility] Procedure: [id number] DX/CHEST XRAY LINE PLACEMENT Exam Date: 05/01/17 Exam Time: 1135 REPORT STATUS: Signed PROCEDURE: A single AP view of the chest. COMPARISON: None. INDICATIONS: LINE PLACEMENT FINDINGS: Lines/tubes: There are 2 right IJ lines. Tracheostomy tube unchanged. NG tube extends below the diaphragm. Lungs: Bibasilar atelectasis. Pleura: There is a small right pleural effusion. Heart and mediastinum: The heart and the mediastinum are unremarkable. Bones: No acute bony abnormality. IMPRESSION: 1. Bibasilar atelectasis with a small right pleural effusion. 2. Status post right IJ central line exchange. Laurent [place] D.O. Dictated by: Laurent Anthony D.O. on 05/01/2017 at 13:52 Electronically approved by: Laurent Anthony D.O. on 05/01/2017 at 13:52 Dictated By: LAURENT ANTHONY DO Electron ically Signed By: LAURENT ANTHONY DO on 05/01/17 1352 Transcribed By: DAYA on 05/01/17 1352 COPY TO: RASHID JENKINS MD NON-TUNNELLED CVC CATH REPLACE [place] [address] Patient Name: SHIELA FARLEY MR #: [id number] : 1980 Age/Sex: 37/M Req #: [id number] Adm Physician: RADHA HOFFMAN MD Ordered by: RENU BARAKAT MD, MD Report #: [id number] Location: ICU Room/Bed: [place] [address] Procedure: [id number] IR/NON- TUNNELLED CVC CATH REPLACE Exam Date: 05/01/17 Exam Time: 1055 REPORT STATUS: Signed PROCEDURE: NON-TUNNELLED CVC CATH REPLACE COMPARISON: None. INDICATIONS: Routine exchange COMPLICATIONS: None MEDICATIONS: 1% Xylocaine BLOOD LOSS: None PROCEDURE: Procedure was performed at the bedside under sterile conditions. The 12 Togolese indwelling temporary Christiano hemodialysis catheter was removed over a 0.035 inch Amplatz Super Stiff wire. A new 12 Togolese 20 cm long Christiano catheter was then placed over the wire. This new catheter was secured to the skin with 2-0 Ethilon. A confirmatory film was ordered. CONCLUSION: Successful catheter exchange. Laurent [place] D.O. Dictated by: Laurent Anthony D.O. on 05/01/2017 at 13:40 Electronically approved by: Laurent Anthony D.O. on 05/01/2017 at 13:40 Dictated By: LAURENT ANTHONY DO 1341 Transcribed By: DAYA on 05/01/17 1341 COPY TO: RENU BARAKAT NON-TUNNELLED CVC CATH REPLACE [place] [address] Patient Name: SHIELA FARLEY MR #: [id number] : 1980 Age/Sex: 37/M Req #: [id number] Adm Physician: RADHA HOFFMAN MD Ordered by: RASHID JENKINS MD Report #: [id number] Location: ICU Room/Bed: [place] [address] Procedure: [id number] IR/NON-TUNNELLED CVC CATH REPLACE Exam Date: 05/01/17 Exam Time: 1055 REPORT STATUS: Signed PROCEDURE: NON-TUNNELLED CVC CATH REPLACE COMPARISON: None. INDICATIONS: Routine exchange COMPLICATIONS: None MEDICATIONS: 1% Xylocaine BLOOD LOSS: None PROCEDURE: Procedure was performed following sterile preparation at the bedside. The retention sutures of the indwelling 7 Togolese right IJ central line were cut. A 0.035 inch Amplatz Super Stiff wire was placed through the central lumen. A new 7 Togolese Arrow triple-lumen catheter was then placed [id number]. Catheter was secured to the skin with 2-0 nylon. CONCLUSION: Successful exchange of a central venous catheter Laurent [place] D.O. Dictated by: Laurent Anthony D.O. on 05/01/2017 at 13:38 Electronically approved by: Laurent Anthony D.O. on 05/01/2017 at 13:38 Dictated By: LAURENT ANTHONY DO 37 Transcribed By: DAYA on 05/01/171337 COPY TO: RASHID JENKINS MD CHEST [facility] (PORTABLE) [place] [address] Patient Name: SHIELA FARLEY MR #: [id number] : 1980 Age/Sex: 37/M Req #: [id number] Adm Physician: RADHA HOFFMAN MD Ordered by: RASHID JENKINS MD Report #: [id number] Location: ICU Room/Bed: ICU [facility] Procedure: [id number] DX/CHEST SINGLE (PORTABLE) Exam Date: 05/01/17 Exam Time: 0530 REPORT STATUS: Signed PROCEDURE: A single AP view of the chest. COMPARISON: [facility], , CHEST SINGLE (PORTABLE), 04/30/2017, 5:29. INDICATIONS: RESPIRATORY FAILURE FINDINGS: Lines/tubes: There are 2 right IJ lines. Tracheostomy tube is present. NG tube extends below the diaphragm. Lungs: There are patchy areas of focal atelectasis, most prominent in the left lung base. Pleura: There is no pleural effusion or pneumothorax. Heart and mediastinum: The heart and the mediastinum are unremarkable. Bones: No acute bony abnormality. IMPRESSION: Patchy areas of atelectasis. Laurent [place] D.O. Dictated by: Laurent Anthony D.O. on 05/01/2017 at 7:52 Electronically approved by: Laurent Anthony D.O. on 05/01/2017 at 7:52 Dictated By: LAURENT ANTHONY DO 1 Transcribed By: DAYA on 05/01/17 075 COPY TO: RASHID JENKINS MD CHEST SINGLE (PORTABLE) [place] [address] Patient Name: SHIELA FARLEY MR #: [id number] : 1980 Age/Sex: 37/M Req #: [id number] Adm Physician: RADHA HOFFMAN MD Ordered by: TERRENCE MCMAHON MD Report #: [id number] Location: ICU Room/Bed: ICU 194 Procedure: [id number] DX/CHEST SINGLE (PORTABLE) Exam Date: Exam Time: REPORT STATUS: Signed CHEST SINGLE (PORTABLE), 04/30/2017 4:53 AM Technique: CHEST SINGLE (PORTABLE) Comparison: 04/29/2017 Clinical history: Post tracheostomy Findings: See Impression. Left lung apex is excluded from view. Impression: 1. Lines/Tubes: Stable tracheostomy, right IJ central venous catheter over the SVC and visualized subdiaphragmatic NG tube. 2. Persistent low lung volumes with bibasilar atelectasis, aspiration or infection. Signed by: Dr Purnima Gonzalez MD on 04/30/2017 6:27 AM Dictated By: PURNIMA GONZALEZ MD 6 Transcribed By: SEFERINO on 04/30/17626 COPY TO: TERRENCE MCMAHON MD CHEST SINGLE (PORTABLE) [place] [address] Patient Name: SHIELA FARLEY MR #: [id number] : 1980 Age/Sex: 37/M Req #: [id number] Adm Physician: RADHA HOFFMAN MD Ordered by: TYRA SANTORO MD Report #: [id number] Location: ICU Room/Bed: ICU 194 Procedure: [id number] DX/CHEST SINGLE (PORTABLE) Exam Date: 04/29/17 Exam Time: 1425 REPORT STATUS: Signed PROCEDURE: CHEST SINGLE (PORTABLE) TECHNIQUE: Portable AP chest INDICATION: Tracheostomy placement COMPARISON: Patients [facility], DX, CHEST SINGLE (PORTABLE), 04/16/2017, 8:49. Patients [facility], DX, CHEST SINGLE (PORTABLE), 04/22/2017, 5:39. Patients [facility], DX, CHEST SINGLE (PORTABLE), 04/28/2017, 5:40. FINDINGS: See conclusion. CONCLUSION: 1. Interval tracheostomy placement with the tip about 6 cm above the miguelina. 2. Right internal jugular dialysis catheter tip at the atriocaval junction. 3. Right internal jugular central venous catheter tip in the mid SVC. 4. Nasogastric tube tip off the inferior margin of the radiograph. 5. Bilateral lower lobe subsegmental atelectasis. Questionable small to moderate left pleural effusion. Overall, improvement of multifocal airspace opacities multiple prior chest radiographs. Dictated by: Jerry Mcdaniel M.D. on 04/29/2017 at 14:48 Electronically approved by: Jrery Mcdaniel M.D. on 04/29/2017 at 14:48 Dictated By: JERRY MCDANIEL MD 1448 Transcribed By: DAYA on 04/29/17 1448 COPY TO: TYRA SANTORO MD CHEST SINGLE (PORTABLE) [place] [address] Patient Name: SHIELA FARLEY MR #: [id number] : 1980 Age/Sex: 37/M Req #: [id number] Adm Physician: RADHA HOFFMAN MD Ordered by: RASHID JENKINS MD Report #: [id number] Location: ICU Room/Bed: ICU 194 Procedure: [id number] DX/CHEST SINGLE (PORTABLE) Exam Date: Exam Time: REPORT STATUS: Signed EXAM: CHEST SINGLE (PORTABLE), AP 1 view DATE: 04/28/2017 5:00 AM Time stamp on exam: 0540 hours INDICATION: Respiratory failure COMPARISON: AP view of the chest April 26, 2017 FINDINGS: LINES/TUBES: Endotracheal tube, right internal jugular vein central lines and nasal/orogastric tubes poorly visualized, though appear in stable position. LUNGS: Limited view. Bibasilar atelectasis. PLEURA: No effusions or pneumothorax. HEART AND MEDIASTINUM: Normal size and contour. BONES AND SOFT TISSUES: No acute findings. IMPRESSION: No interval change within limitations of the exam. Signed by: Dr. Benjamin Garcia M.D. on 04/28/2017 6:29 AM Dictated By: BENJAMIN GARCIA MD 8 Transcribed By: SEFERINO on 04/19 COPY TO: RASHID JENKINS MD CHEST SINGLE (PORTABLE) [place] [address] Patient Name: SHIELA FARLEY MR #: [id number] : 1980 Age/Sex: 37/M Req #: [id number] Adm Physician: RADHA HOFFMAN MD Ordered by: RASHID JENKINS MD Report #: [id number] Location: ICU Room/Bed: ICU [facility] Procedure: [id number] DX/CHEST SINGLE (PORTABLE) Exam Date: 04/27/17 Exam Time: 0510 REPORT STATUS: Signed EXAM: CHEST SINGLE (PORTABLE), AP 1 view DATE: 04/27/2017 5:00 AM Time stamp on exam: 0544 hours INDICATION: Not provided COMPARISON: AP view of the chest April 26, 2017 FINDINGS: LINES/TUBES: Stable right internal jugular vein central line, nasal/orogastric tube and endotracheal tube. LUNGS: Limited view of the lungs. Bibasilar atelectasis. PLEURA: Can't exclude small bilateral pleural effusions. HEART AND MEDIASTINUM: Stable BONES AND SOFT TISSUES: No acute findings. IMPRESSION: Stable exam. Signed by: Dr. Benjamin Garcia M.D. on 04/27/2017 6:22 AM Dictated By: BENJAMIN GARCIA MD 1 Transcribed By: SEFERINO on 04/27/17621 COPY TO: RASHID JENKINS MD CHEST SINGLE (PORTABLE) [place] [address] Patient Name: SHIELA FARLEY MR #: [id number] : 1980 Age/Sex: 37/M Req #: [id number] Adm Physician: RADHA HOFFMAN MD Ordered by: RASHID JENKINS MD Report #: [id number] Location: ICU Room/Bed: ICU [facility] Procedure: [id number] DX/CHEST SINGLE (PORTABLE) Exam Date: Exam Time: REPORT STATUS: Signed EXAM: CHEST SINGLE (PORTABLE), AP 1 view DATE: 04/26/2017 5:00 AM Time stamp on exam: 0526 hours INDICATION: Respiratory failure COMPARISON: AP view of the chest April 25, 2017 FINDINGS: LINES/TUBES: Endotracheal tube terminates 4 cm above the miguelina. Nasal/orogastric tube courses below the diaphragm out of field of view. There appears to be 2 right internal jugular vein central lines terminates in the expected location of the atrial caval junction. LUNGS: Bibasilar atelectasis. PLEURA: Indeterminate for layering pleural effusions. HEART AND MEDIASTINUM: Stable BONES AND SOFT TISSUES: No acute findings. IMPRESSION: No significant interval change. Signed by: Dr. Benjamin Garcia M.D. on 04/26/2017 6:10 AM Dictated By: BENJAMIN GARCIA MD 9 Transcribed By: SEFERINO on 04/26/17609 COPY TO: RASHID JENKINS MD CT BRAIN WO [place] [address] Patient Name: SHIELA FARLEY MR #: [id number] : 1980 Age/Sex: 37/M Req #: [id number] Adm Physician: RADHA HOFFMAN MD Ordered by: RAFY ALMENDAREZ MD Report #: [id number] Location: ICU Room/Bed: ICU [facility] Procedure: [id number] CT/CT BRAIN WO Exam Date: 04/26/17 Exam Time: 247 REPORT STATUS: Signed Examination: CT BRAIN WITHOUT CONTRAST History:Confusion. Altered mental status. Comparison studies:Head CT performed April 22, 2017 Technique: Axial images were obtained from the skull base to the vertex. Coronal and sagittal images reconstructed from the axial data. Intravenous contrast: None Findings: Motion artifact. Scalp: No abnormalities. Bones: No fractures, blastic or lytic lesions. Brain sulci: Appropriate for age. Ventricles: No hydrocephalus. Extra-axial space: No large hemorrhage. Parenchyma: The previously seen areas of cortical and subcortical based hypoattenuation in left greater than right occipital lobes and millimeter area of hyperdensity concerning for hemorrhage is not demonstrated on current study and may be related to patient's motion. Sellar/suprasellar region: No abnormalities. Craniocervical junction: Patent foramen magnum. No Chiari one malformation. Incidental findings: None. 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 Repeat examination is recommended when patient is stable. Signed by: Dr. Virginia Damian M.D. on 04/26/2017 8:48 AM Dictated By: VIRGINIA BLACK MD 7 Transcribed By: SEFERINO on 04/26/17847 COPY TO: RAFY ALMENDAREZ MD CHEST SINGLE (PORTABLE) [place] [address] Patient Name: SHIELA FARLEY MR #: [id number] : 1980 Age/Sex: 37/M Req #: [id number] Adm Physician: RADHA HOFFMAN MD Ordered by: RASHID JENKINS MD Report #: [id number] Location: ICU Room/Bed: ICU [facility] Procedure: [id number] DX/CHEST SINGLE (PORTABLE) Exam Date: 04/25/17 Exam Time: 0450 REPORT STATUS: Signed EXAM: CHEST SINGLE (PORTABLE), AP 1 view DATE: 04/25/2017 5:00 AM Time stamp on exam: 0521 hours INDICATION: Intubated patient COMPARISON: AP view of the chest April 24, 2017 FINDINGS: LINES/TUBES: The endotracheal tube terminates 4 cm above the miguelina. The nasal/orogastric tube tip is not seen. The internal jugular vein central line tip is not seen. LUNGS: Probably bibasilar atelectasis. PLEURA: Probably small bilateral pleural effusions. HEART AND MEDIASTINUM: No interval change. BONES AND SOFT TISSUES: No acute findings. IMPRESSION: Very limited exam. Probably no interval change. Signed by: Dr. Benjamin Garcia M.D. on 04/25/2017 6:58 AM Dictated By: BENJAMIN GARCIA MD T ranscribed By: SEFERINO on 04/25/1758 COPY TO: RASHID JENKINS MD CHEST SINGLE (PORTABLE) [place] [address] Patient Name: SHIELA FARLEY MR #: [id number] : 1980 Age/Sex: 37/M Req #: [id number] Adm Physician: RADHA HOFFMAN MD Ordered by: RASHID JENKINS MD Report #: [id number] Location: ICU Room/Bed: [place] [address] Procedure: [id number] DX/CHEST SINGLE (PORTABLE) Exam Date: Exam Time: REPORT STATUS: Signed EXAM: CHEST SINGLE (PORTABLE), AP 1 view DATE: 04/24/2017 5:00 AM Time stamp on exam: 0448 hrs INDICATION: Intubated COMPARISON: AP view of the chest April 23, 2017 FINDINGS: See impression IMPRESSION: Essentially nondiagnostic chest x-ray. Repeat exam is recommended. Signed by: Dr. Benjamin Garcia M.D. on 04/24/2017 6:08 AM Dictated By: BENJAMIN GARCIA MD 7 Transcribed By: SEFERINO on 04/24/17607 COPY TO: RASHID JENKINS MD CHEST SINGLE (PORTABLE) [place] [address] Patient Name: SHIELA FARLEY MR #: [id number] : 1980 Age/Sex: 37/M Req #: [id number] Adm Physician: RADHA HOFFMAN MD Ordered by: RASHID JENKINS MD Report #: [id number] Location: ICU Room/Bed: [place] [address] Procedure: [id number] DX/CHEST SINGLE (PORTABLE) Exam Date: 04/23/17 Exam Time: 0400 REPORT STATUS: Signed EXAM: CHEST SINGLE (PORTABLE), AP 1 view DATE: 04/23/2017 5:00 AM Time stamp on exam: 0425 hours INDICATION: Intubated COMPARISON: AP view of the chest April 22, 2017 FINDINGS: LINES/TUBES: Stable position of right internal jugular vein central line, endotracheal tube and partially visualized nasal/orogastric tube. LUNGS: Increasing atelectasis right lung base. PLEURA: Suspected bilateral layering pleural effusions. HEART AND MEDIASTINUM: Stable appearance. BONES AND SOFT TISSUES: No acute findings. IMPRESSION: Increasing right lower lobe atelectasis. Signed by: Dr. Benjamin Garcia M.D. on 04/23/2017 5:54 AM Dictated By: BENJAMIN GARCIA MD 3 Transcribed By: SEFERINO on 04/23/17553 COPY TO: RASHID JENKINS MD US EXTREMITY MONROY NON-VAS [place] [address] Patient Name: SHIELA FARLEY MR #: [id number] : 1980 Age/Sex: 37/M Req #: [id number] Adm Physician: RADHA HOFFMAN MD Ordered by: MAYUR MOORE MD Report #: [id number] Location: ICU Room/Bed: ICU [facility] Procedure: [id number] US/US EXTREMITY MONROY NON-VAS Exam Date: 04/22/17 Exam Time: 1750 REPORT STATUS: Signed PROCEDURE: Limited EXTREMITY ULTRASOUND COMPARISON: None. INDICATIONS: R/O ABSCESS in the left anterior forearm TECHNIQUE: Pisano scale and color Doppler ultrasound evaluation analysis was performed in the left anterior forearm. Similar images of the right anterior forearm were obtained for comparison. FINDINGS: Moderate subcutaneous soft tissue edema is identified, without well-defined fluid collections. There are elongated structures with heterogeneous echogenicity and punctate hyperechoic foci in bilateral upper extremity subcutaneous soft tissues, without any vascularity on color Doppler, which may represent chronically thrombosed superficial vessels. CONCLUSION: No evidence of well-defined fluid collections to suggest abscess. Brad Azar M.D. Dictated by: Brad Azar M.D. on 04/23/2017 at 19:04 Electronically approved by: Brad Azar M.D. on 04/23/2017 at 19:04 Dictated By: BRAD AZAR MD 03 Transcribed By: DAYA on 04/23/171903 COPY TO: MAYUR MOORE MD CT BRAIN WO [place] [address] Patient Name: SHIELA FARLEY MR #: [id number] : 1980 Age/Sex: 37/M Req #: [id number] Adm Physician: RADHA HOFFMAN MD Ordered by: MAYUR MOORE MD Report #: [id number] Location: ICU Room/Bed: ICU 194 Procedure: [id number] CT/CT BRAIN WO Exam Date: 04/22/17 Exam Time: 0800 REPORT STATUS: Signed Examination: CT BRAIN WITHOUT CONTRAST History:Unresponsive. Comparison studies:None Technique: Multiple axial images were obtained from the skull base to the vertex. Coronal and sagittal images reconstructed from the axial data. Intravenous contrast: None Findings: Significantly limited study. Scalp: No abnormalities. Bones: No fractures, blastic or lytic lesions. Brain sulci: Appropriate for age. Ventricles: Normal in size and configuration. No hydrocephalus. Extra-axial space: No abnormalities. Parenchyma: Cortical and subcortical based hypoattenuation in the left greater than right occipital lobes with a single punctate area (3mm) of hyperdensity, concerning hemorrhage. No masses or hemorrhage. Sellar/suprasellar region: No abnormalities. Craniocervical junction: Patent foramen magnum. No Chiari one malformation. Incidental findings: Opacified middle ear cavities and mastoid air cells bilaterally. Impression: 1. 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 2. Punctate area of hemorrhage in the left occipital lobe. 3. No midline shift or herniation. Signed by: Dr. Virginia Damian M.D. on 04/22/2017 2:53 PM Dictated By: VIRGINIA BLACK MD 52 Transcribed By: SEFERINO on 04/22/171452 COPY TO: MAYUR MOORE MD CHEST SINGLE (PORTABLE) [place] [address] Patient Name: SHIELA FARLEY MR #: [id number] : 1980 Age/Sex: 37/M Req #: [id number] Adm Physician: RADHA HOFFMAN MD Ordered by: RASHID JENKINS MD Report #: [id number] Location: ICU Room/Bed: ICU [facility] Procedure: [id number] DX/CHEST SINGLE (PORTABLE) Exam Date: 04/22/17 Exam Time: 0500 REPORT STATUS: Signed EXAMINATION: CHEST SINGLE (PORTABLE) INDICATION: Intubated COMPARISON: 04/21/2017 FINDINGS: TUBES and LINES: Endotracheal, nasogastric tube, and 2 right IJ central line catheters are stable. LUNGS: Lungs are not well inflated. Persistent, now predominantly right lower lobe atelectasis. There is mild prominence of the central pulmonary vasculature, consistent with pulmonary venous congestion. PLEURA: No pleural effusion or pneumothorax. HEART AND MEDIASTINUM: The cardiomediastinal silhouette is unremarkable. BONES AND SOFT TISSUES: No acute osseous lesion. Soft tissues are unremarkable. UPPER ABDOMEN: No free air under the diaphragm. IMPRESSION: 1. Resolution of right upper lobe confluent opacity. 2. Right lower lobe atelectasis. 3. Tubes and lines are in good position. Signed by: Dr. Hever Keller M.D. on 04/22/2017 6:10 AM Dictated By: HEVER NICOLE MD 9 Transcribed By: SEFERINO on 04/22/17609 COPY TO: RASHID JENKINS MD CHEST SINGLE (PORTABLE) [place] [address] Patient Name: SHIELA FARLEY MR #: [id number] : 1980 Age/Sex: 37/M Req #: [id number] Adm Physician: RADHA HOFFMAN MD Ordered by: RASHID JENKINS MD Report #: [id number] Location: ICU Room/Bed: ICU [facility] Procedure: [id number] DX/CHEST SINGLE (PORTABLE) Exam Date: Exam Time: REPORT STATUS: Signed EXAMINATION: CHEST SINGLE (PORTABLE) INDICATION: Respiratory failure COMPARISON: 04/20/2017 FINDINGS: TUBES and LINES: Endotracheal, nasogastric tube, and 2 right IJ central line catheters are stable. LUNGS: Lungs are not well inflated. Persistent atelectasis. Persistent right upper lobe airspace disease compatible with developing infection. PLEURA: No pleural effusion or pneumothorax. HEART AND MEDIASTINUM: The cardiomediastinal silhouette is unremarkable. BONES AND SOFT TISSUES: No acute osseous lesion. Soft tissues are unremarkable. UPPER ABDOMEN: No free air under the diaphragm. IMPRESSION: 1. Stable chest with evidence of right upper lobe patchy airspace opacity suspicious for pneumonia. 2. Tubes and lines are in good position. Signed by: Dr. Hever Keller M.D. on 04/21/2017 6:19 AM Dictated By: HEVER NICOLE MD 8 Transcribed By: SEFERINO on 04/21/17618 COPY TO: RASHID JENKINS MD CHEST SINGLE (PORTABLE) [place] [address] Patient Name: SHIELA FARLEY MR #: [id number] : 1980 Age/Sex: 37/M Req #: [id number] Adm Physician: RADHA HOFFMAN MD Ordered by: RASHID JENKINS MD Report #: [id number] Location: ICU Room/Bed: ICU [facility] Procedure: [id number] DX/CHEST SINGLE (PORTABLE) Exam Date: Exam Time: REPORT STATUS: Signed EXAMINATION: CHEST SINGLE (PORTABLE) INDICATION: Respiratory failure COMPARISON: 04/19/2017 FINDINGS: TUBES and LINES: Endotracheal, NG tube and right IJ central line catheters in good position LUNGS: Lungs are not well inflated. Improving bibasilar atelectasis and central vascular congestion. Improving interlobular septi thickening. More confluent opacity in the right upper lobe. PLEURA: No pleural effusion or pneumothorax. HEART AND MEDIASTINUM: The cardiomediastinal silhouette is unremarkable. BONES AND SOFT TISSUES: No acute osseous lesion. Soft tissues are unremarkable. UPPER ABDOMEN: No free air under the diaphragm. IMPRESSION: Improving pulmonary edema and atelectasis. Confluent right upper lobe opacity may repr esent developing infection. Signed by: Dr. Hever Keller M.D. on 04/20/2017 4:21 AM Dictated By: HEVER NICOLE MD 0 Transcribed By: SEFERINO on 04/20/17420 COPY TO: RASHID JENKINS MD CHEST SINGLE (PORTABLE) [place] [address] Patient Name: SHIELA FARLEY MR #: [id number] : 1980 Age/Sex: 37/M Req #: [id number] Adm Physician: RADHA HOFFMAN MD Ordered by: RASHID JENKINS MD Report #: [id number] Location: ICU Room/Bed: ICU [facility] Procedure: [id number] DX/CHEST SINGLE (PORTABLE) Exam Date: 04/19/17 Exam Time: 409 REPORT STATUS: Signed SINGLE VIEW CHEST, April 19, 2017 Clinical History: Respiratory failure. Technique: Single, portable AP view chest. Comparison: April 18, 2017 Findings: See impression. Impression: 1. The endotracheal tube tip about 5.5 cm from the mgiuelina. No change in right internal jugular central venous catheters. 2. Stable low lung volumes with bilateral lower lobe airspace opacities (right greater than left) consistent with atelectasis and/or pneumonia. 3. Stable cardiomediastinal silhouette with normal heart size and central vascular congestion. 4. No interval change relative to April 18. This report was generated with voice-recognition technology. Errors in repair technician can occur. Please interpret accordingly and contact a radiologist if there are any questions regarding the report. Signed by: Dr. Jerry Mcdaniel M.D. on 04/19/2017 7:04 AM Dictated By: JERRY MCDANIEL MD 0704 Transcribed By: SEFERINO on 04/19/17703 COPY TO: RASHID JENKINS MD CT CHEST WO [facility] [address] [place] [address] Patient Name: SHIELA FARLEY MR #: [id number] : 1980 Age/Sex: 37/M Req #: [id number] Adm Physician: RADHA HOFFMAN MD Ordered by: RASHID JENKINS MD Report #: [id number] Location: ICU Room/Bed: ICU [facility] Procedure: [id number] CT/CT CHEST WO Exam Date: Exam Time: REPORT STATUS: Signed EXAM: CT Chest WITHOUT contrast 04/18/2017 8:27 PM INDICATION: Pleural effusions. COMPARISON: Chest x-ray on 04/17/2017 TECHNIQUE: Chest was scanned utilizing a multidetector helical scanner from the lung apex through the level of the adrenal glands without administration of IV contrast. Absence of intravenous contrast decreases sensitivity for detection of lymphadenopathy and vascular pathology. Coronal and sagittal reformations were obtained. Routine protocol was performed. IV CONTRAST: None RADIATION DOSE: Total DLP: 603.28 mGy*cm Estimated effective dose: (DLP x 0.014 x size factor) mSv COMPLICATIONS: None FINDINGS: LINES/ TUBES: Right IJ dual-lumen and single-lumen catheters as well as NG tube are in place LUNGS AND AIRWAYS: Multiple areas of confluent airspace opacity and groundglass nodularity compatible with multifocal pneumonia/infection Airways are normal. PLEURA: Bilateral pleural effusions right greater than left HEART AND MEDIASTINUM: The thyroid gland is normal. No mediastinal, hilar or axillary lymphadenopathy. The heart is normal in size.. There is no pericardial effusion. UPPER ABDOMEN: Upper abdominal imaging is limited due to beam hardening artifact. Surgical clips related to cholecystectomy are present. Otherwise, limited evaluation. There is evidence of air in the nondependent portion of the upper abdomen. BONES: There are degenerative changes in the thoracic spine. SOFT TISSUES: Unremarkable. IMPRESSION: 1. Limited visualization of the abdomen. 2. Multifocal pneumonia and bilateral pleural effusions. 3. Air in the nondependent portion of the abdomen may represent partially visualized bowel or free intraperitoneal air. Signed by: Dr. Hever Keller M.D. on 04/18/2017 4:01 AM Dictated By: HEVER NICOLE MD 0 Transcribed By: SEFERINO on 04/18/17400 COPY TO: RASHID JENKINS MD CHEST SINGLE (PORTABLE) [place] [address] Patient Name: SHIELA FARLEY MR #: [id number] : 1980 Age/Sex: 37/M Req #: [id number] Adm Physician: RADHA HOFFMAN MD Ordered by: RASHID JENKINS MD Report #: [id number] Location: ICU Room/Bed: ICU [facility] Procedure: [id number] DX/CHEST SINGLE (PORTABLE) Exam Date: 04/18/17 Exam Time: 0525 REPORT STATUS: Signed EXAMINATION: CHEST SINGLE (PORTABLE) INDICATION: Respiratory failure COMPARISON: 04/17/2017 FINDINGS: TUBES and LINES: Nasogastric tube and right IJ central line catheters are stable in good position. Endotracheal tube tip is just at the level of the thoracic inlet 7 cm above the miguelina. Repositioning is recommended LUNGS: Lungs are not well inflated. Lungs are clear. Bibasilar airspace disease and resolution of right upper lobe airspace PLEURA: Small bilateral pleural effusions HEART AND MEDIASTINUM: The cardiomediastinal silhouette is unremarkable. There are atherosclerotic calcifications within the aorta. BONES AND SOFT TISSUES: No acute osseous lesion. Soft tissues are unremarkable. UPPER ABDOMEN: No free air under the diaphragm. IMPRESSION: 1. Findings are compatible with bibasilar atelectasis, fluid overload and small bilateral pleural effusions. 2. Resolution of right upper lobe airspace disease 3. Endotracheal tube is slightly high. Repositioning advised Signed by: Dr. Hever Keller M.D. on 04/18/2017 6:18 AM Dictated By: HEVER NICOLE MD 7 Transcribed By: SEFERINO on 04/18/17617 COPY TO: RASHID JENKINS MD CHEST SINGLE (PORTABLE) [place] [address] Patient Name: SHIELA FARLEY MR #: [id number] : 1980 Age/Sex: 37/M Req #: [id number] Adm Physician: RADHA HOFFMAN MD Ordered by: RASHID JENKINS MD Report #: [id number] Location: ICU Room/Bed: ICU [facility] Procedure: [id number] DX/CHEST SINGLE (PORTABLE) Exam Date: 04/17/17 Exam Time: 0505 REPORT STATUS: Signed EXAMINATION: CHEST SINGLE (PORTABLE) INDICATION: Follow-up pneumonia. COMPARISON: 04/16/2017 FINDINGS: TUBES and LINES: Endotracheal, nasogastric tube and right IJ central line catheters are stable in good position. LUNGS: Lungs are not well inflated. Bibasilar airspace disease and resolution of right upper lobe airspace PLEURA: Small bilateral pleural effusions HEART AND MEDIASTINUM: The cardiomediastinal silhouette is unremarkable. There are atherosclerotic calcifications within the aorta. BONES AND SOFT TISSUES: No acute osseous lesion. Soft tissues are unremarkable. UPPER ABDOMEN: No free air under the diaphragm. IMPRESSION: 1. Findings are compatible with bibasilar atelectasis, fluid overload and small bilateral pleural effusions. 2. Resolution of right upper lobe airspace disease Signed by: Dr. Hever Keller M.D. on 04/17/2017 6:21 AM Dictated By: HEVER NICOLE MD 0 Transcribed By: SEFERINO on 04/17/17620 COPY TO: RASHID JENKINS MD CHEST SINGLE (PORTABLE) [place] [address] Patient Name: SHIELA FARLEY MR #: [id number] : 1980 Age/Sex: 37/M Req #: [id number] Adm Physician: RADHA HOFFMAN MD Ordered by: RASHID JENKINS MD Report #: [id number] Location: ICU Room/Bed: ICU [facility] Procedure: [id number] DX/CHEST SINGLE (PORTABLE) Exam Date: 04/16/17 Exam Time: 0845 REPORT STATUS: Signed PROCEDURE: CHEST SINGLE (PORTABLE) COMPARISON: 04/16/2017 at 0532. INDICATIONS: PLEURAL EFFUSIONS FINDINGS: Endotracheal tube, enteric tube, right internal jugular low flow and high flow central venous catheters are unchanged in position. Interval resolution of diffuse airspace opacity in the right lung with ipsilateral mediastinal shift. Residual lower lung and perihilar opacity persists, likely subsegmental atelectasis. Small bilateral pleural effusions. Left hemithorax is otherwise clear. Stable cardiomediastinal contour. No acute osseous abnormality. CONCLUSION: Interval resolution of right lung collapse and ipsilateral mediastinal shift, possibly related to mucous plugging. There is residual subsegmental atelectasis in the perihilar region and lower lobe. Small bilateral pleural effusions. Stable position of support lines and tubes as above. Dictated by: Tyra Leiva M.D. on 04/16/2017 at 9:10 Electronically approved by: Tyra Leiva M.D. on 04/16/2017 at 9:10 Dictated By: TYRA LEIVA MD 9 Transcribed By: DAYA on 04/16/17909 COPY TO: RASHID JENKINS MD CHEST SINGLE (PORTABLE) [place] [address] Patient Name: SHIELA FARLEY MR #: [id number] : 1980 Age/Sex: 37/M Req #: [id number] Adm Physician: RADHA HOFFMAN MD Ordered by: RASHID JENKINS MD Report #: [id number] Location: ICU Room/Bed: ICU [facility] Procedure: [id number] DX/CHEST SINGLE (PORTABLE) Exam Date: 04/16/17 Exam Time: 0515 REPORT STATUS: Signed EXAMINATION: CHEST SINGLE (PORTABLE) INDICATION: Pneumonia. COMPARISON: 04/15/2017 FINDINGS: TUBES and LINES: Endotracheal, NG tube, right IJ central line catheters are stable in position. LUNGS: There is near collapse of the right lung . The left lung is clear with minimal base atelectasis . PLEURA: Small right pleural effusion is suspected. HEART AND MEDIASTINUM: The cardiomediastinal silhouette is difficult to assess due to shifting of the mediastinum into the right hemithorax. BONES AND SOFT TISSUES: No acute osseous lesion. Soft tissues are unremarkable. UPPER ABDOMEN: No free air under the diaphragm. IMPRESSION: Some development of right lung atelectasis and shifting of the mediastinum to the right of midline. Small right pleural effusion is suspected. Underlying pneumonia cannot be excluded. Signed by: Dr. Hever Keller M.D. on 04/16/2017 6:43 AM Dictated By: HEVER NICOLE MD 2 Transcribed By: SEFERINO on 04/16/17642 COPY TO: RASHID JENKINS MD CHEST XRAY LINE PLACEMENT [place] [address] Patient Name: SHIELA FARLEY MR #: [id number] : 1980 Age/Sex: 37/M Req #: [id number] Adm Physician: RADHA HOFFMAN MD Ordered by: ROSHNI PEDERSEN, RENU PEDERSEN Report #: [id number] Location: ICU Room/Bed: ICU [facility] Procedure: [id number] DX/CHEST XRAY LINE PLACEMENT Exam Date: Exam Time: REPORT STATUS: Signed PROCEDURE: A single AP view of the chest. COMPARISON: Portable chest 04/15/2017. INDICATIONS: CHEST X RAY LINE PLACEMENT FINDINGS: Lines/tubes: Right internal jugular temporary triple-lumen central venous catheter with tip projecting over the expected region of the superior vena cava. Right internal jugular temporary double lumen central venous hemodialysis catheter with tip projecting over the expected region of the right atrium. Lungs: The lungs are well inflated and clear. There is no evidence of pneumonia or pulmonary edema. Pleura: Small bilateral pleural effusions. No pneumothorax. Heart and mediastinum: The heart and the mediastinum are unremarkable. Bones: No acute bony abnormality. Degenerative changes of the thoracic spine. IMPRESSION: Small bilateral pleural effusions. Dictated by: Salome Hawkins M.D. on 04/15/2017 at 14:48 Electronically approved by: Salome Hawkins M.D. on 04/15/2017 at 14:48 Dictated By: SALOME HAWKINS MD 1448 Transcribed By: DAYA on 04/15/17 1448 COPY TO: RENU BARAKAT IR CONSULT [place] [address] Patient Name: SHIELA FARLEY MR #: [id number] : 1980 Age/Sex: 37/M Req #: [id number] Adm Physician: RADHA HOFFMAN MD Ordered by: ROSHNI PEDERSEN, RENU PEDERSEN Report #: [id number] Location: ICU Room/Bed: ICU [facility] Procedure: [id number] DX/IR CONSULT Exam Date: Exam Time: REPORT STATUS: Signed PROCEDURE: ULTRASOUND GUIDANCE FOR VASCULAR ACCESS COMPARISON: None. INDICATIONS: Dialysis Access FINDINGS: Right internal jugular vein is noted to be patent. Ultrasound guidance was utilized for access for central venous hemodialysis catheter placement. CONCLUSION: Patent right internal jugular vein. Successful ultrasound guidance for central venous hemodialysis catheter placement. Dictated by: Salome Hawkins M.D. on 04/15/2017 at 14:56 Electronically approved by: Salome Hawkins M.D. on 04/15/2017 at 14:56 Dictated By: SALOME HAWKINS MD 55 Transcribed By: DAYA on 04/15/171455 COPY TO: RENU BARAKAT CHEST SINGLE (PORTABLE) [place] [address] Patient Name: SHIELA FARLEY MR #: [id number] : 1980 Age/Sex: 37/M Req #: [id number] Adm Physician: RADHA HOFFMAN MD Ordered by: RASHID JENKINS MD Report #: [id number] Location: ICU Room/Bed: ICU [facility] Procedure: [id number] DX/CHEST SINGLE (PORTABLE) Exam Date: 04/15/17 Exam Time: 0535 REPORT STATUS: Signed EXAM: CHEST SINGLE (PORTABLE), AP 1 view DATE: 04/15/2017 5:00 AM Time stamp on exam: 0530 hours INDICATION: Pneumonia COMPARISON: AP view of the chest April 14, 2017 FINDINGS: LINES/TUBES: Stable position of right internal jugular vein central line, endotracheal tube and nasal/orogastric tube. LUNGS: Stable vascular congestion/edema. PLEURA: Layering bilateral pleural effusions. HEART AND MEDIASTINUM: Stable appearance. BONES AND SOFT TISSUES: No acute findings. IMPRESSION: No interval change Signed by: Dr. Benjamin Garcia M.D. on 04/15/2017 6:53 AM Dictated By: BENJAMIN GARCIA MD 2 Transcribed By: SEFERINO on 04/15/17652 COPY TO: RASHID JENKINS MD NON-TUNNELLED CVC CATH PLACMNT [place] [address] Patient Name: SHIELA FARLEY MR #: [id number] : 1980 Age/Sex: 37/M [facility] #: [id number] Adm Physician: RADHA HOFFMAN MD Ordered by: RASHID JENKINS MD Report #: [id number] Location: ICU Room/Bed: [place] [address] Procedure: [id number] IR/NON-TUNNELLED CVC CATH PLACMNT Exam Date: Exam Time: REPORT STATUS: Signed PROCEDURE: NON-TUNNELLED CVC CATH PLACMNT COMPARISON: None. INDICATIONS: Dialysis Access COMPLICATIONS: None. MEDICATIONS: None. BLOOD LOSS: 2.0 cc. PROCEDURE: The procedure was performed at the bedside in the intensive care unit. The right neck was prepped and draped in usual sterile fashion. 1% lidocaine was infused into the subcutaneous tissues for local anesthesia. Utilizing direct sonographic guidance, a 21 gauge needle was advanced into the right internal jugular vein. A 0.018 inch wire was advanced centrally. An access sheath was placed over the wire to secure the vascular access. The wire was upsized to a 0.035 inch wire. The wire was advanced into the inferior vena cava for stability. Serial dilations were performed over the wire. A temporary double lumen central venous hemodialysis catheter was advanced over the wire. The wire was removed. The catheter ports demonstrate proper function with aspiration and flushing of saline. The catheter ports were flushed with sterile saline. The catheter was secured to the skin with 3-0 Ethilon suture. A sterile dressing was applied. There no immediate complications. The patient tolerated the procedure well. The patient remained in the intensive care unit in unchanged condition. CONCLUSION: Successful placement of a right internal jugular temporary central venous hemodialysis catheter utilizing ultrasound guidance. Dictated by: Salome Hawkins M.D. on 04/15/2017 at 14:52 Electronically approved by: Salome Hawkins M.D. on 04/15/2017 at 14:52 Dictated By: SALOME HAWKINS MD 51 Transcribed By: DAYA on 04/15/171451 COPY TO: RASHID JENKINS MD US GUIDANCE FOR VASCULAR ACCES [place] [address] Patient Name: SHIELA FARLEY MR #: [id number] : 1980 Age/Sex: 37/M Req #: [id number] Adm Physician: RADHA HOFFMAN MD Ordered by: RASHID JENKINS MD Report #: [id number] Location: ICU Room/Bed: ICU [facility] Procedure: [id number] US/US GUIDANCE FOR VASCULAR ACCES Exam Date: Exam Time: REPORT STATUS: Signed PROCEDURE: ULTRASOUND GUIDANCE FOR VASCULAR ACCESS COMPARISON: None. INDICATIONS: Dialysis Access FINDINGS: Right internal jugular vein is noted to be patent. Ultrasound guidance was utilized for access for central venous hemodialysis catheter placement. CONCLUSION: Patent right internal jugular vein. Successful ultrasound guidance for central venous hemodialysis catheter placement. Dictated by: Salome Hawkins M.D. on 04/15/2017 at 14:56 Electronically approved by: Salome Hawkins M.D. on 04/15/2017 at 14:56 Dictated By: SALOME HAWKINS MD 55 Transcribed By: DAYA on 04/15/171455 COPY TO: RASHID JENKINS MD SPECIAL PROCEDURE IN DOUGHNUT GLAZIER [place] [address] Patient Name: SHIELA FARLEY MR #: [id number] : 1980 Age/Sex: 37/M Req #: [id number] [facility] Physician: RADHA HOFFMAN MD Ordered by: TYRA SANTORO MD Report #: [id number] Location: ICU Room/Bed: [place] [address] Procedure: [id number] IR/SPECIAL PROCEDURE IN DOUGHNUT GLAZIER Exam Date: Exam Time: REPORT STATUS: Signed Inferior vena cava filter placement April 14, 2017 Pre-Procedure Diagnosis: DVT; thrombocytopenia. Post- procedure Diagnosis:DVT; thrombocytopenia. Machine Striper: Monica Mcdaniel Fisher Mussel: None Sedation: None. Heart rate and oxygen saturation were monitored in real-time. Blood pressure was measured in 5 minute increments. 2% lidocaine was used for local anesthesia. Radiation Dose:1743.2 cGycm2 (Dose Area Product) Fluoroscopy time:0.7 minutes Estimate blood loss: <5 mL Blood administered: None Complications: None Implants/Grafts: None Specimen: None Procedure: Informed consent was obtained and the patient placed supine. A timeout was performed. The right groin was prepped and draped in standard sterile fashion. Using real-time ultrasound guidance an 18-gauge single wall needle was used to access the right common femoral vein. The needle was exchanged for the deployment sheath and a venogram performed (see findings below). A [place] retrievable inferior vena cava filter was placed with the retrieval focus at the level of the L2 pedicle. There was less than 15 degrees filter tilt. Confirmation venogram was performed after placement and the catheter removed without complication. Findings: Normal inferior vena cava. Impression: Successful retrievable inferior vena cava filter placement ([place]). This report was generated with voice-recognition technology. Errors in repair technician can occur. Please interpret accordingly and contact a radiologist if there are any questions regarding the report. Signed by: Dr. Jerry Mcdaniel M.D. on 04/15/2017 3:07 PM Dictated By: JERRY MCDANIEL MD 09 Transcribed By: SEFERINO on 04/19/171509 COPY TO: TYRA SANTORO MD CHEST SINGLE (PORTABLE) [place] [address] Patient Name: SHIELA FARLEY MR #: [id number] : 1980 Age/Sex: 37/M Req #: [id number] Adm Physician: RADHA HOFFMAN MD Ordered by: RASHID JENKINS MD Report #: [id number] Location: ICU Room/Bed: [place] [address] Procedure: [id number] DX/CHEST SINGLE (PORTABLE) Exam Date: 04/14/17 Exam Time: 0611 REPORT STATUS: Signed Examination: Single AP view of the chest. COMPARISON: 04/13/2017 INDICATION: Pneumonia DISCUSSION: Lines/tubes: Stable right IJ, endotracheal tube, and enteric tube. Lungs: Stable pulmonary venous congestion with bilateral effusions and lower lung atelectasis/consolidation. Heart and mediastinum: The heart and the mediastinum are unremarkable. Bones and soft tissues: No acute bony abnormalities. IMPRESSION: Stable pulmonary venous congestion with bilateral effusions and lower lung atelectasis/consolidation. Signed by: Dr. Jil Devlin M.D. on 04/14/2017 7:15 AM Dictated By: JIL DEVLIN MD 4 Transcribed By: SEFERINO on 04/14/17714 COPY TO: RASHID JENKINS MD THORACENTESIS/US GUIDED [place] [address] [place] [address] Patient Name: SHIELA FARLEY MR #: [id number] : 1980 Age/Sex: 37/M Req #: [id number] Adm Physician: RADHA HOFFMAN MD Ordered by: RADHA HOFFMAN MD Report #: [id number] Location: ICU Room/Bed: ICU 194-1 Procedure: [id number] US/THORACENTESIS/US GUIDED Exam Date: 04/14/17 Exam Time: 1634 REPORT STATUS: Signed Exam:Ultrasound guidance for thoracentesis History:Ultrasound guidance for thoracentesis Comparison: None available Findings:See impression Impression: Ultrasound guidance provided by the radiology department for thoracentesis. Signed by: Dr. Jil Devlin M.D. on 04/14/2017 6:20 PM Dictated By: JIL DEVLIN MD 19 Transcribed By: SEFERINO on 04/14/171819 COPY TO: RADHA HOFFMAN MD CHEST SINGLE (PORTABLE) [place] [address] Patient Name: SHIELA FARLEY MR #: [id number] : 1980 Age/Sex: 37/M Req #: [id number] Adm Physician: RADHA HOFFMAN MD Ordered by: RSAHID JENKINS MD Report #: [id number] Location: ICU Room/Bed: ICU 194-1 Procedure: [id number] DX/CHEST SINGLE (PORTABLE) Exam Date: 04/13/17 Exam Time: 0525 REPORT STATUS: Signed EXAM: CHEST SINGLE (PORTABLE), AP 1 view DATE: 04/13/2017 5:00 AM Time stamp on exam: 0547 hours INDICATION: Pneumonia COMPARISON: AP view of the chest April 12, 2017 FINDINGS: LINES/TUBES: Stable position of right internal jugular vein central line, endotracheal tube and nasal/orogastric tube LUNGS: Bibasilar atelectasis PLEURA: Moderate bilateral pleural effusions, increased from prior exam HEART AND MEDIASTINUM: Stable appearance BONES AND SOFT TISSUES: No acute findings. IMPRESSION: Increasing bilateral pleural effusions Signed by: Dr. Benjamin Garcia M.D. on 04/13/2017 6:26 AM Dictated By: BENJAMIN GARCIA MD 5 Transcribed By: SEFERINO on 04/13/17625 COPY TO: RASHID JENKINS MD CHEST SINGLE (PORTABLE) [place] [address] Patient Name: SHIELA FARLEY MR #: [id number] : 1980 Age/Sex: 37/M Req #: [id number] Adm Physician: RADHA HOFFMAN MD Ordered by: RASHID JENKINS MD Report #: [id number] Location: ICU Room/Bed: ICU 1941 Procedure: [id number] DX/CHEST SINGLE (PORTABLE) Exam Date: Exam Time: REPORT STATUS: Signed EXAM: CHEST SINGLE (PORTABLE), AP 1 view DATE: 04/12/2017 5:00 AM Time stamp on exam: 0409 hours INDICATION: Pneumonia COMPARISON: AP view of the chest April 11, 2017 FINDINGS: LINES/TUBES: Stable position of endotracheal tube, partially visualized nasal/orogastric tube and right internal jugular vein central line. LUNGS: Bibasilar atelectasis. PLEURA: Possible small effusion on the right. HEART AND MEDIASTINUM: Stable appearance. BONES AND SOFT TISSUES: No acute findings. IMPRESSION: No interval change. Signed by: Dr. Benjamin Garcia M.D. on 04/12/2017 4:31 AM Dictated By: BENJAMIN GARCIA MD 0 Transcribed By: SEFERINO on 04/12/17430 COPY TO: RASHID JENKINS MD CHEST SINGLE (PORTABLE) [place] [address] Patient Name: SHIELA FARLEY MR #: [id number] : 1980 Age/Sex: 37/M Req #: [id number] Adm Physician: RADHA HOFFMAN MD Ordered by: RASHID JENKINS MD Report #: [id number] Location: ICU Room/Bed: [place] [address] Procedure: [id number] DX/CHEST SINGLE (PORTABLE) Exam Date: 04/11/17 Exam Time: 0505 REPORT STATUS: Signed EXAM: CHEST SINGLE (PORTABLE), AP 1 view DATE: 04/11/2017 4:00 AM Time stamp on exam: 0555 hours INDICATION: Free air in abdomen COMPARISON: AP view of the chest April 10, 2017 FINDINGS: LINES/TUBES: Stable positions of right central line, endotracheal tube and nasal/orogastric tube. LUNGS: Bibasilar atelectasis. PLEURA: Possible small effusion on the right. HEART AND MEDIASTINUM: Normal size and contour. BONES AND SOFT TISSUES: No acute findings. IMPRESSION: Bibasilar atelectasis. Stable support lines and tubes. Pneumoperitoneum not seen on this exam. Signed by: Dr. Benjamin Garcia M.D. on 04/11/2017 6:36 AM Dictated By: BENJAMIN GARCIA MD 5 Transcribed By: SEFERINO on 04/11/17635 COPY TO: RASHID JENKINS MD US ABDOMEN COMPLETE [place] [address] Patient Name: SHIELA FARLEY MR #: [id number] : 1980 Age/Sex: 37/M Req #: [id number] Adm Physician: RADHA HOFFMAN MD Ordered by: RASHID JENKINS MD Report #: [id number] Location: ICU Room/Bed: ICU [facility] Procedure: [id number] US/US ABDOMEN COMPLETE Exam Date: 04/11/17 Exam Time: 1430 REPORT STATUS: Signed EXAMINATION: Abdominal ultrasound. CLINICAL INDICATION: Abdominal pain COMPARISON: None DISCUSSION: Transverse and longitudinal images of the upper abdomen were obtained. The liver is increased in size measuring 19.6 centimeters in length in the right midclavicular line and shows normal echogenicity. No focal masses are seen in the liver. There is no intrahepatic biliary dilatation. Status post cholecystectomy. The main portal vein is normal in caliber and measures 1.2 mm with normal hepatopetal flow. Pancreas is poorly visualized. The spleen is normal in echogenicity. The right kidney measures 14 centimeters in length and the left kidney measures 12 centimeters. There is normal renal cortical echogenicity and no hydronephrosis, solid mass or shadowing calculi. The visualized portions of the great vessels are normal. Abdominal ascites with pleural effusion.. IMPRESSION: Hepatomegaly. Status post cholecystectomy. Ascites and pleural effusion. Signed by: Dr. Jil Devlin M.D. on 04/11/2017 3:25 PM Dictated By: JIL DEVLIN MD 1525 Transcribed By: SEFERINO on 04/11/17 1525 COPY TO: RASHID JENKINS MD CHEST SINGLE (PORTABLE) [place] [address] Patient Name: SHIELA FARLEY MR #: [id number] : 1980 Age/Sex: 37/M Req #: [id number] Adm Physician: RADHA HOFFMAN MD Ordered by: RASHID JENKINS MD Report #: [id number] Location: ICU Room/Bed: ICU [facility] Procedure: [id number] DX/CHEST SINGLE (PORTABLE) Exam Date: 04/10/17 Exam Time: 1655 REPORT STATUS: Signed PROCEDURE: A single AP view of the chest. COMPARISON: [facility], DX, CHEST SINGLE (PORTABLE), 04/10/2017, 13:05. INDICATIONS: ETT PLACEMENT FINDINGS: See impression. IMPRESSION: 1. endotracheal tube has distal tip projecting approximately 4.1 cm above the miguelina. Other support lines and tubes are unchanged. 2. No other significant change since prior portable AP film performed at 04/10/2017 at 1305 Brad Azar M.D. Dictated by: Brad Azar M.D. on 04/10/2017 at 17:59 Electronically approved by: Brad Azar M.D. on 04/10/2017 at 17:59 Dictated By: BRAD AZAR MD 58 Transcribed By: DAYA on 04/10/171758 COPY TO: RASHID JENKINS MD CHEST SINGLE (PORTABLE) [place] [address] Patient Name: SHIELA FARLEY MR #: [id number] : 1980 Age/Sex: 37/M Req #: [id number] Adm Physician: RADHA HOFFMAN MD Ordered by: TYRA SANTORO MD Report #: [id number] Location: ICU Room/Bed: [place] [address] Procedure: [id number] DX/CHEST SINGLE (PORTABLE) Exam Date: 04/10/17 Exam Time: 1255 REPORT STATUS: Signed PROCEDURE: A single AP view of the chest. COMPARISON: [facility], , ABDOMEN-1VIEW (KUB), 04/09/2017, 10:49. [facility], , CHEST SINGLE (PORTABLE), 04/10/2017, 5:23. INDICATIONS: EET, CENTRAL LINE PLACEMENT FINDINGS: Lines/tubes: Interval placement of right-sided IJ central line, with distal tip projecting in the mid SVC. Endotracheal tube has distal tip projecting 5.2 cm above the miguelina. Enteric tube in place, with distal portion below the hemidiaphragm. The tip is not visualized. Lungs: Lungs are mildly hypoinflated. Bibasilar atelectasis. Pleura: There is no pleural effusion or pneumothorax. Heart and mediastinum: The heart and the mediastinum are unremarkable. Bones and soft tissues: No acute bony abnor mality. Interval decrease in previously visualized pneumoperitoneum IMPRESSION: 1. right-sided IJ central line has distal tip projecting in the mid SVC. Endotracheal tube projects 5.2 cm above the miguelina. 2. Hypoinflated lungs, with bibasilar atelectasis. 3. Interval decrease in previously visualized pneumoperitoneum Brad Azar M.D. Dictated by: Brad Azar M.D. on 04/10/2017 at 16:08 Electronically approved by: Brad Azar M.D. on 04/10/2017 at 16:08 Dictated By: BRAD AZAR MD 160 Transcribed By: DAYA on 04/10/17 1608 COPY TO: TYRA SANTORO MD CHEST SINGLE (PORTABLE) [place] [address] Patient Name: SHIELA FARLEY MR #: [id number] : 1980 Age/Sex: 37/M Req #: [id number] Adm Physician: RADHA HOFFMAN MD Ordered by: Chelita Chaves ASSEMBLER WATCH TRAIN Report #: [id number] Location: [facility] Room/Bed: [place] [address] Procedure: [id number] DX/CHEST SINGLE (PORTABLE) Exam Date: 04/10/17 Exam Time: 0515 REPORT STATUS: Signed EXAM: CHEST SINGLE (PORTABLE), AP 1 view DATE: 04/10/2017 5:06 AM Time stamp on exam: 0523 hours INDICATION: Shortness of breath, pain when breathing COMPARISON: None FINDINGS: LINES/TUBES: None LUNGS: No consolidations or edema. PLEURA: No effusions or pneumothorax. HEART AND MEDIASTINUM: Normal size and contour. BONES AND SOFT TISSUES: Large volume of pneumoperitoneum seen underneath the hemidiaphragms. IMPRESSION: Large volume of pneumoperitoneum seen underneath the hemidiaphragms consistent with bowel perforation. Findings discussed with Ivonne the brew house supervisor 04/10/2017 at 0620 hrs. Signed by: Dr. Benjamin Garcia M.D. on 04/10/2017 6:25 AM Dictated By: BENJAMIN GARCIA MD 4 Transcribed By: SEFERINO on 04/10/17624 COPY TO: CHELITA CHAVES NP ABDOMEN-1VIEW (KUB) [place] [address] Patient Name: SHIELA FARLEY MR #: [id number] : 1980 Age/Sex: 37/M Req #: [id number] [facility] Physician: RADHA HOFFMAN MD Ordered by: PUJA ROSS MD Report #: [id number] Location: [facility] Room/Bed: [place] [address] Procedure: [id number] DX/ABDOMEN-1VIEW (KUB) Exam Date: 04/09/17 Exam Time: 1045 REPORT STATUS: Signed PROCEDURE: X-RAY ABDOMEN - KUB COMPARISON: Abdominal CT 04/08/2017 INDICATIONS: ILEUS, SMALL BOWEL OBSTRUCTION FINDINGS: Enteric contrast remains in the distended small bowel in the right abdomen. A prominent air-filled loop of small bowel in the mid abdomen is noted. No contrast or bowel gas is seen within the distal colon. Surgical clips in the midabdomen. The lung bases are out of the field of view. Osseous structures are intact. CONCLUSION: Distended small bowel loops with collapsed colon raises concern for small bowel obstruction and can be followed with serial KUB. Dictated by: Romario Grayson M.D. on 04/09/2017 at 11:30 Electronically approved by: Romario Grayson M.D. on 04/09/2017 at 11:30 Dictated By: RACIEL GRAYSON MD 1130 Transcribed By: DAYA on 04/09/17 1130 COPY TO: PUJA ROSS MD CT ABDOMEN/PELVIS WO [place] [address] Patient Name: SHIELA FARLEY MR #: [id number] : 1980 Age/Sex: 37/M Req #: [id number] Adm Physician: Ordered by: RYAN CHUNG Report #: [id number] Location: ER Room/Bed: Procedure: [id number] CT/CT ABDOMEN/PELVIS WO Exam Date: 04/08/17 Exam Time: 1600 REPORT STATUS: Signed PROCEDURE: CT ABDOMEN AND PELVIS WITHOUT CONTRAST TECHNIQUE: The abdomen and pelvis were scanned utilizing a multidetector helical scanner from the diaphragm to the lesser trochanter without IV or oral contrast material. Coronal and sagittal multiplanar reformations were obtained. Recent prior CT at outside facility with iodine contrast administration and Gastrografin performed today. DLP: 788.39 mGy-cm COMPARISON: [facility], CT, CT ABDOMEN/PELVIS WO, 01/23/2012, 0:32. INDICATIONS: MID ABDOMINAL PAIN FINDINGS: ABSENCE OF INTRAVENOUS CONTRAST DECREASES SENSITIVITY FOR DETECTION OF FOCAL LESIONS AND VASCULAR PATHOLOGY. LOWER THORAX: Normal. HEPATOBILIARY: No focal hepatic lesions. No biliary ductal dilatation. SPLEEN: No splenomegaly. PANCREAS: No focal masses or ductal dilatation. ADRENALS: No adrenal nodules. KIDNEYS/URETERS: No hydronephrosis, stones, or solid mass lesions. The previously described punctate renal stones are obscured by the excretion of contrast material. PELVIC ORGANS/BLADDER: Contrast within the renal collecting systems and bladder. PERITONEUM / RETROPERITONEUM: No free air or fluid. LYMPH NODES: No lymphadenopathy. VESSELS: Unremarkable. GI TRACT: Residual contrast within loops of small bowel and stomach. Small bowel loops in the right midabdomen are mildly prominent which may be reflective of an ileus. Remainder small bowel loops showed no contrast or significant dilatation. Postoperative changes related to a ventral hernia. BONES AND SOFT TISSUES: Unremarkable. IMPRESSION: 1. Limited study to evaluate for renal stones due to residual renal excretion and bladder contrast material. 2. Prominent loops of small bowel with contrast present within may represent a focal ileus. Laurent Anthony D.O. Dictated by: Laurent Anthony D.O. on 04/08/2017 at 17:34 Electronically approved by: Laurent Anthony D.O. on 04/08/2017 at 17:34 Dictated By: LAURENT ANTHONY DO 1732 Transcribed By: DAYA on 04/08/17 1737 COPY TO: RYAN CHUNG
[2018-05-02] MEDS ORDERED: SODIUM CHLORIDE 0.9% 1000ML 1,000 ML IV SCH (18:45)
[2018-05-02] MEDS ORDERED: POTASSIUM CHLORIDE 20 MEQ TAB CR PO ONE (20:00)
[2018-05-02] MEDS ORDERED: KETOROLAC TROMETHAMINE 30 MG/ML VIAL IV ONE (20:00)
== END 2018-05-02 21:36 | disposition home or self-care (01) ==
LOC: FSED 18:05
DX: M54.5 Low back pain (principal); E87.6 Hypokalemia; K52.9 Noninfective gastroenteritis and colitis, unspecified; Z98.84 Bariatric surgery status; Z98.0 Intestinal bypass and anastomosis status; Z86.718 Personal history of other venous thrombosis and embolism
CPT/HCPCS: 80048; 80053; 81003; 85025; 99283; J1885

== ENCOUNTER 2018-05-14 18:08 | Emergency (ER) | payer OTHER ==
[~2018-05-14] VITALS: Ht 188 cm; Wt 112.5 kg
[2018-05-14] MEDS ORDERED: KETOROLAC TROMETHAMINE 30 MG/ML VIAL IV STA (18:42)
--- NOTE | 2018-05-14 19:11 | NUR ---
Report and care hand off given to NATALIE Matute.
--- NOTE | 2018-05-14 19:16 | NUR ---
Report received from Erin Reyes RN.
--- NOTE | 2018-05-14 19:58 | Diagnostic Imaging Report ---
EXAM: CT Abdomen and Pelvis WITHOUT contrast INDICATION: Kidney stone. COMPARISON: None. TECHNIQUE: Abdomen and pelvis were scanned utilizing a multidetector helical scanner from the lung base to the pubic symphysis without administration of IV contrast. Absence of intravenous contrast decreases sensitivity for detection of focal lesions and vascular pathology. Coronal and sagittal reformations were obtained. Stone protocol is performed. IV CONTRAST: None ORAL CONTRAST: Water COMPLICATIONS: None RADIATION DOSE: Total DLP: 828.53 mGy*cm Estimated effective dose: (DLP x 0.015 x size factor) mSv CTDIvol has been reviewed. It is below the limits set by the Radiation Protocol Committee (RPC). FINDINGS: LINES and TUBES: Infrarenal IVC filter centered at L2 vertebral body. LOWER THORAX: Unremarkable HEPATOBILIARY: The liver is diffuse hypodense compared to the spleen, consistent with diffuse hepatic diffuse hepatic steatosis. No focal hepatic lesions. No biliary ductal dilation. GALLBLADDER: There are cholecystectomy clips. SPLEEN: Mild splenomegaly measuring 15.2 cm. PANCREAS: No focal masses or ductal dilatation. ADRENALS: No adrenal nodules KIDNEYS/URETERS: Mild left hydroureter and mild to moderate left hydronephrosis. Mild left perinephric fat stranding. No cystic or solid mass lesions. 1.3 cm stone in the left UVJ. GI TRACT: Suboptimally evaluated bowel surgery, with sutures at the gastric antrum, and in the right lower pelvis small bowel loops. No abnormal distention, wall thickening, or evidence of bowel obstruction. Appendix is normal. PELVIC ORGANS/BLADDER: Unremarkable. LYMPH NODES: No lymphadenopathy. VESSELS: Unremarkable. PERITONEUM / RETROPERITONEUM: No free air or fluid. BONES: There are degenerative changes in the lumbar spine. SOFT TISSUES: Anterior abdominal wall eventration related to previous surgery. IMPRESSION: 1. 1.3 cm left UVJ stone causing mild left hydroureter and mild to moderate left hydronephrosis. 2. Previous abdominal wall surgery with surgical anastomosis at the gastric antrum and in the low pelvis small bowel loops. 3. Mild splenomegaly measuring 15 cm. Signed by: Dr. Sam Parson M.D. on 05/14/2018 7:55 PM
[2018-05-14 21:07] VITALS: BP 116/85
== END 2018-05-14 20:55 | disposition home or self-care (01) ==
LOC: FSED 18:08
DX: N13.2 Hydronephrosis with renal and ureteral calculous obstruction (principal)
CPT/HCPCS: 74176; 80048; 81003; 85025; 99284; J1885